=== PATIENT | female | born 1970 | race Caucasian/White ===

== ENCOUNTER → 2016-10-21 | Outpatient (CLI) | payer MEDICARE ==
[~2016-10-21] MED LIST: ABILIFY; BUSP10TA95 PO; BUSPIRONE; CEPH500C PO; DIAZ-345 PO; FLEXERIL; HYDR-3458 PO; HYDR-3820 PO; HYDR-757 PO; HYDR1TAB PO; HYOS0.1283 SL; MELO7.5T46 PO; METH4TAB PO; METH500T35 PO; MIRT30TA6 PO; NAPR-243 PO; NITR-65 PO; ONDA4TAB8 PO; OXYC-197 PO; SERT100T PO; SERT100T8 PO; TRM50T PO; VALIUM; ZOLOFT; [UNRECOGNIZED DRUG - OTHER]
--- NOTE | 2016-10-21 19:21 | Diagnostic Imaging Report ---
Examination: DEXA scan. Indication: Osteopenia. Technique: Bone mineral density estimated based on dual energy radiography over the lumbar spine and femoral necks, was performed. Findings: The lumbar spine T-score is -3. T-score over the right femoral neck is -2.4 and on the left side is -2.8. Impression: Osteoporosis. Dictated by: Dictated on workstation # [id number]
== END ==
LOC: RAD 09:02
PROVIDERS: ATTEND Nurse Practitioner Community Health
DX: M81.0 Age-related osteoporosis without current pathological fracture (principal); G89.29 Other chronic pain
CPT/HCPCS: 77080

== ENCOUNTER 2017-09-23 06:50 | Emergency (ER) | payer MEDICARE ==
[~2017-09-23] VITALS: Ht 162.6 cm; Wt 77.1 kg
--- OUTSIDE RECORDS SUMMARY | 2017-09-23 06:56 | XMS REPORT ---
Author Author KATHLEEN MOORE [facility] Address [address] [place] [address] Care Team Providers Care Rfid Technician Name Role Phone KATHLEEN MOORE Unavailable PROBLEMS Type Condition ICD9-CM Code [id number] Code Onset Dates Condition Status SNOMED Code Problem Chronic pain syndrome G89.4 Active 753699512 Problem Other chronic pain G89.29 Active 60563340 Problem Anxiety F41.9 Active 19542083 Problem Chronic pain G89.29 Active 95857779 Problem Arthritis of right hip M19.90 Active 00902889 ALLERGIES Unknown Allergies SOCIAL HISTORY No smoking Hx information available PLAN OF CARE VITAL SIGNS MEDICATIONS Unknown Medications RESULTS Name Result Date Reference Range [employer] 2016-07-23 PROCEDURES Procedure Date Ordered Related Diagnosis Body Site No Charge Jul 23, 2016 IMMUNIZATIONS No Known Immunizations
--- OUTSIDE RECORDS SUMMARY | 2017-09-23 06:56 | XMS REPORT ---
Author KATHLEEN Crandall Organization [employer] Address Unknown Phone Unavailable Care Team Providers Care Consulting Actuary Name Role Phone KATHLEEN MOORE CP Unavailable Allergies, Adverse Reactions, Alerts Substance Reaction Event Type Iodine hives Drug Allergy Codeine Phosphate nausea Drug Allergy Problems Problem Type Condition Code Onset Dates Condition Status Problem Arthritis of right hip M19.90 Active Problem Anxiety F41.9 Active Problem Chronic pain G89.29 Active Assessment Chronic pain G89.29 Active Assessment Arthritis of right hip M19.90 Active Assessment Anxiety F41.9 Active Medications Medication Code System Code Instructions Start Date End Date Status Dosage Zoloft [facility] [address]-16 100 MG Orally Once a day 2 tablet Bluebell [facility] [address]-81 10-325 MG Orally every 6 hrs. May 19, 2015 1 tablet as needed Procedures Procedure Coding System Code Date Office Visit, Est Pt., Level 3 CPT-4 99386 Jul 14, 2015 No Charge CPT-4 22332 Jul 14, 2015 [facility] VISIT ESTABLISHED PATIENT CPT-4 G0467 Jul 14, 2015 Vital Signs Date/Time: Jul 14, 2015 Temperature 97.6 F Weight 170 lbs Height 64 in BMI 29.18 Index Blood Pressure Diastolic 84 mmHg Blood Pressure Systolic 132 mmHg Cardiac Monitoring Heart Rate 80 bpm Results No Known Results Summary Purpose [employer] Submission
--- OUTSIDE RECORDS SUMMARY | 2017-09-23 06:57 | XMS REPORT ---
Author KATHLEEN Crandall Organization [employer] Address Unknown Phone Unavailable Care Team Providers Care Safety Supervisor Name Role Phone KATHLEEN MOORE CP Unavailable Allergies, Adverse Reactions, Alerts Substance Reaction Event Type Iodine hives Drug Allergy Codeine Phosphate nausea Drug Allergy Problems Problem Type Condition Code Onset Dates Condition Status Problem Arthritis of right hip M19.90 Active Problem Anxiety F41.9 Active Problem Chronic pain G89.29 Active Assessment Other chronic pain G89.29 Active Assessment Foot pain, left M79.672 Active Assessment Pain in left knee M25.562 Active Medications Medication Code System Code Instructions Start Date End Date Status Dosage BusPIRone HCl [facility] [address]-35 10 mg Orally Twice a day 1 tablet Remeron [facility] [address]-14 15 MG Orally Once a day 1 tablet before bedtime in the evening Wallace [facility] [address]-55 10-325 MG Orally every 6 hrs Sep 08, 2015 1 tablet as needed Zoloft [facility] [address]-05 100 MG Orally Once a day 2 tablet Procedures Procedure Coding System Code Date Office Visit, Est Pt., Level 3 CPT-4 50211 February 16, 2016 [facility] VISIT ESTABLISHED PATIENT CPT-4 G0467 February 16, 2016 Vital Signs Date/Time: February 16, 2016 Cardiac Monitoring Heart Rate 80 bpm Weight 165.0 lbs Height 64 in Blood Pressure Diastolic 72 mmHg Blood Pressure Systolic 104 mmHg Results No Known Results Summary Purpose [employer]Works Submission
--- OUTSIDE RECORDS SUMMARY | 2017-09-23 06:57 | XMS REPORT ---
Author Author KATHLEEN MOORE [facility] Address [address] [place] [address] Care Team Providers Care Institute Scientist Name Role Phone KATHLEEN MOORE Unavailable PROBLEMS Type Condition ICD9-CM Code [id number] Code Onset Dates Condition Status SNOMED Code Problem Chronic pain G89.29 Active 20490262 Problem Arthritis of right hip M19.90 Active 35025561 Problem Anxiety F41.9 Active 34490645 ALLERGIES Unknown Allergies SOCIAL HISTORY No smoking Hx information available PLAN OF CARE VITAL SIGNS MEDICATIONS Unknown Medications RESULTS No Results PROCEDURES No Known procedures IMMUNIZATIONS No Known Immunizations
--- OUTSIDE RECORDS SUMMARY | 2017-09-23 06:57 | XMS REPORT ---
Author KATHLEEN Crandall Organization [employer] Address Unknown Phone Unavailable Care Team Providers Care Wage Adjuster Name Role Phone KATHLEEN MOORE CP Unavailable Allergies No Known Allergies Problems Problem Type Condition Code Onset Dates Condition Status Problem Arthritis of right hip M19.90 Active Problem Anxiety F41.9 Active Problem Chronic pain G89.29 Active Medications Medication Code System Code Instructions Start Date End Date Status Dosage [facility] [address]-28 10-325 MG Orally every 6 hrs Sep 08, 2015 Jun 18, 2016 1 tablet as needed Results No Known Results Summary Purpose [employer]Works Submission
--- OUTSIDE RECORDS SUMMARY | 2017-09-23 06:57 | XMS REPORT ---
Author KATHLEEN Crandall Organization [employer] Address Unknown Phone Unavailable Care Team Providers Care Science Interpreter Name Role Phone KATHLEEN MOORE CP Unavailable Allergies No Known Allergies Problems Problem Type Condition Code Onset Dates Condition Status Problem Arthritis of right hip M19.90 Active Problem Anxiety F41.9 Active Problem Chronic pain G89.29 Active Medications Medication Code System Code Instructions Start Date End Date Status Dosage [facility] [address]-70 10-325 MG Orally every 6 hrs Sep 08, 2015 1 tablet as needed Results No Known Results Summary Purpose [employer]ClinicalWorks Submission
--- OUTSIDE RECORDS SUMMARY | 2017-09-23 06:57 | XMS REPORT ---
Author Author KATHLEEN MOORE [facility] Address [address] [place] [address] Care Team Providers Care Brine Process Operator Name Role Phone KATHLEEN MOORE Unavailable PROBLEMS Type Condition ICD9-CM Code [id number] Code Onset Dates Condition Status SNOMED Code Problem Chronic pain syndrome G89.4 Active 394746307 Problem Other chronic pain G89.29 Active 40915203 Problem Anxiety F41.9 Active 98124160 Problem Chronic pain G89.29 Active 69785224 Problem Arthritis of right hip M19.90 Active 26394559 ALLERGIES No Information SOCIAL HISTORY Never Assessed PLAN OF CARE VITAL SIGNS MEDICATIONS Unknown Medications RESULTS Name Result Date Reference Range Bone Density 2016-10-21 PROCEDURES No Known procedures IMMUNIZATIONS No Known Immunizations MEDICAL (GENERAL) HISTORY Type Description Date Medical History hernia (umbilical) Medical History chronic pain (back pain/DDD) Medical History fibromyalgia Medical History PTSD Surgical History hysterectomy Surgical History hernia repair x 2 Surgical History appendectomy Hospitalization History Hospitalization for surgery only Hospitalization History Child x 3 Hospitalization History Overdose, left calcaneal fracture--[facility]ia [facility] 01/01/16
--- OUTSIDE RECORDS SUMMARY | 2017-09-23 06:57 | XMS REPORT ---
Author Author KATHLEEN MOORE [facility] Address [address] [place] [address] Care Team Providers Care Creative Art Director Name Role Phone KATHLEEN MOORE Unavailable PROBLEMS Type Condition ICD9-CM Code [id number] Code Onset Dates Condition Status SNOMED Code Problem Chronic pain syndrome G89.4 Active 943866448 Problem Other chronic pain G89.29 Active 55824321 Problem Anxiety F41.9 Active 08872865 Problem Chronic pain G89.29 Active 80773639 Problem Arthritis of right hip M19.90 Active 73803144 ALLERGIES No Information SOCIAL HISTORY Never Assessed PLAN OF CARE VITAL SIGNS MEDICATIONS Medication Instructions Dosage Frequency Start Date End Date Duration Status [place] 10-325 MG Orally every 6 hrs 1 tablet as needed 6h Aug, 28 days Active RESULTS No Results PROCEDURES No Known procedures IMMUNIZATIONS No Known Immunizations MEDICAL (GENERAL) HISTORY Type Description Date Medical History hernia (umbilical) Medical History chronic pain (back pain/DDD) Medical History fibromyalgia Medical History PTSD Surgical History hysterectomy Surgical History hernia repair x 2 Surgical History appendectomy Hospitalization History Hospitalization for surgery only Hospitalization History Child x 3 Hospitalization History Overdose, left calcaneal fracture--[facility]ia [facility] 01/01/16
--- OUTSIDE RECORDS SUMMARY | 2017-09-23 06:57 | XMS REPORT ---
Author Author KATHLEEN MOORE Organization [facility] Address [address] [place] [address] Care Team Providers Care Social Welfare Research Worker Name Role Phone KATHLEEN MOORE Unavailable PROBLEMS Type Condition ICD9-CM Code [id number] Code Onset Dates Condition Status SNOMED Code Problem Chronic pain syndrome G89.4 Active 654747269 Problem Other chronic pain G89.29 Active 17118378 Problem Anxiety F41.9 Active 15479862 Problem Chronic pain G89.29 Active 27440919 Problem Arthritis of right hip M19.90 Active 31439330 ALLERGIES No Information SOCIAL HISTORY Never Assessed PLAN OF CARE VITAL SIGNS MEDICATIONS Medication Instructions Dosage Frequency Start Date End Date Duration Status [place] 10-325 MG Orally every 6 hrs 1 tablet as needed 6h 11 Nov, 2016 28 days Active Valium 5 MG Orally Twice a day 1 tablet as needed 12h 16 Sep, 2016 28 days Active RESULTS No Results PROCEDURES [...] 3 Hospitalization History Overdose, left calcaneal fracture--[facility]ia [facility] 01/01/16
--- OUTSIDE RECORDS SUMMARY | 2017-09-23 06:57 | XMS REPORT ---
Author KATHLEEN Crandall Organization [employer] Address Unknown Phone Unavailable Care Team Providers Care Theatre Director Name Role Phone KATHLEEN MOORE CP Unavailable Allergies No Known Allergies Problems Problem Type Condition Code Onset Dates Condition Status Problem Arthritis of right hip M19.90 Active Problem Anxiety F41.9 Active Problem Chronic pain G89.29 Active Medications No Known Medications Results No Known Results Summary Purpose [employer] Submission
--- OUTSIDE RECORDS SUMMARY | 2017-09-23 06:57 | XMS REPORT ---
Author KATHLEEN Crandall Organization [employer] Address Unknown Phone Unavailable Care Team Providers Care Secretary Of Police Name Role Phone KATHLEEN MOORE CP Unavailable Allergies No Known Allergies Problems Problem Type Condition Code Onset Dates Condition Status Problem Anxiety F41.9 Active Assessment Arthralgia of right hip M25.551 Active Problem Arthritis of right hip M19.90 Active Medications Medication Code System Code Instructions Start Date End Date Status Dosage [facility] [address]-29 10-325 MG Orally every 6 hrs. MUST LAST 30 DAYS May 19, 2015 1 tablet as needed Results No Known Results Summary Purpose [employer]ClinicalWorks Submission
--- OUTSIDE RECORDS SUMMARY | 2017-09-23 06:57 | XMS REPORT ---
Author Author KATHLEEN MOORE [facility] Address [address] [place] [address] Care Team Providers Care Manager Quality Improvement Name Role Phone KATHLEEN MOORE Unavailable PROBLEMS Type Condition ICD9-CM Code BPT55-VT Code Onset Dates Condition Status SNOMED Code Problem Chronic pain syndrome G89.4 Active 184775337 Problem Other chronic pain G89.29 Active 92211359 Problem Anxiety F41.9 Active 18801761 Problem Chronic pain G89.29 Active 98482076 Problem Arthritis of right hip M19.90 Active 68871231 ALLERGIES Substance Reaction Event Type Date Status Iodine hives Drug Allergy Sep, Active Codeine Phosphate nausea Drug Allergy Sep, Active SOCIAL HISTORY Never Assessed PLAN OF CARE VITAL SIGNS Height 64 in 2016-10-07 Weight 170.1 lbs 2016-10-07 Temperature 98.0 degrees Fahrenheit 2016-10-07 Heart Rate 76 bpm 2016-10-07 Respiratory Rate 20 2016-10-07 BMI 29.19 kg/m2 2016-10-07 Blood pressure systolic 116 mmHg 2016-10-07 Blood pressure diastolic 68 mmHg 2016-10-07 MEDICATIONS Medication Instructions Dosage Frequency Start Date End Date Duration Status Zoloft 100 MG Orally Once a day 2 tablet 24h Active [place] 10-325 MG Orally every 6 hrs 1 tablet as needed 6h Sep, Active Valium 5 mg Orally Twice a day 1 tablet as needed 12h Sep, Active BusPIRone HCl 10 mg Orally Twice a day 1 tablet 12h Active Remeron 15 MG Orally Once a day 1 tablet before bedtime in the evening 24h Active RESULTS Name Result Date Reference Range Xray : Foot, Right 3 views (IN HOUSE) 2016-10-07 PROCEDURES Procedure Date Ordered Result Body Site [facility] VISIT ESTABLISHED PATIENT October 07, 2016 X-RAY EXAM OF FOOT October 07, 2016 IMMUNIZATIONS No Known Immunizations MEDICAL (GENERAL) HISTORY Type Description Date Medical History hernia (umbilical) Medical History chronic pain (back pain/DDD) Medical History fibromyalgia Medical History PTSD Surgical History hysterectomy Surgical History hernia repair x 2 Surgical History appendectomy Hospitalization History Hospitalization for surgery only Hospitalization History Child x 3 Hospitalization History Overdose, left calcaneal fracture--[facility]ia [facility] 01/01/16
--- OUTSIDE RECORDS SUMMARY | 2017-09-23 06:57 | XMS REPORT ---
Author Author KATHLEEN MOORE [facility] Address [address] [place] [address] Care Team Providers Care Cemetery Vault Installer Name Role Phone KATHLEEN MOORE Unavailable PROBLEMS Type Condition ICD9-CM Code ZPU62-ND Code Onset Dates Condition Status SNOMED Code Problem Chronic pain syndrome G89.4 Active 160074658 Problem Other chronic pain G89.29 Active 10353909 Problem Anxiety F41.9 Active 54833643 Problem Chronic pain G89.29 Active 33826366 Problem Arthritis of right hip M19.90 Active 82427516 ALLERGIES No Information SOCIAL HISTORY Never Assessed [...] 3 Hospitalization History Overdose, left calcaneal fracture--[facility]ia [facility] 01/01/16
--- OUTSIDE RECORDS SUMMARY | 2017-09-23 06:57 | XMS REPORT ---
Author KATHLEEN Crandall Organization [employer] Address Unknown Phone Unavailable Care Team Providers Care Dispatch Officer Name Role Phone KATHLEEN MOORE CP Unavailable Allergies No Known Allergies Problems Problem Type Condition Code Onset Dates Condition Status Problem Arthritis of right hip M19.90 Active Problem Anxiety F41.9 Active Problem Chronic pain G89.29 Active Medications No Known Medications Results No Known Results Summary Purpose [employer] Submission
--- OUTSIDE RECORDS SUMMARY | 2017-09-23 06:57 | XMS REPORT ---
Author KATHLEEN Crandall Organization [employer] Address Unknown Phone Unavailable Care Team Providers Care Side Gluer Name Role Phone KATHLEEN MOORE CP Unavailable Allergies No Known Allergies Problems Problem Type Condition Code Onset Dates Condition Status Problem Anxiety F41.9 Active Problem Arthritis of right hip M19.90 Active Medications No Known Medications Results No Known Results Summary Purpose [employer]ClinicalWorks Submission
--- OUTSIDE RECORDS SUMMARY | 2017-09-23 06:57 | XMS REPORT ---
Author Author KATHLEEN MOORE [facility] Address [address] [place] [address] Care Team Providers Care Wreath And Garland Maker Hand Name Role Phone KATHLEEN MOORE Unavailable PROBLEMS Type Condition ICD9-CM Code XIF25-QI Code Onset Dates Condition Status SNOMED Code Problem Chronic pain G89.29 Active 40484068 Problem Arthritis of right hip M19.90 Active 22177960 Problem Anxiety F41.9 Active 34984119 ALLERGIES Unknown Allergies SOCIAL HISTORY No smoking Hx information available PLAN OF CARE VITAL SIGNS MEDICATIONS Medication Instructions Dosage Frequency Start Date End Date Duration Status [place] 10-325 MG Orally every 6 hrs 1 tablet as needed 6h Aug, Active RESULTS No Results PROCEDURES No Known procedures IMMUNIZATIONS No Known Immunizations
--- OUTSIDE RECORDS SUMMARY | 2017-09-23 06:57 | XMS REPORT ---
Author KATHLEEN Crandall Organization [employer] Address Unknown Phone Unavailable Care Team Providers Care Financial Professional Name Role Phone KATHLEEN MOORE CP Unavailable Allergies No Known Allergies Problems Problem Type Condition Code Onset Dates Condition Status Problem Arthritis of right hip M19.90 Active Problem Anxiety F41.9 Active Problem Chronic pain G89.29 Active Medications Medication Code System Code Instructions Start Date End Date Status Dosage [facility] [address]-34 10-325 MG Orally every 6 hrs Sep 08, 2015 1 tablet as needed Results No Known Results Summary Purpose eClinicalWorks Submission
--- OUTSIDE RECORDS SUMMARY | 2017-09-23 06:57 | XMS REPORT ---
Author Author KATHLEEN MOORE [facility] Address [address] [place] [address] Care Team Providers Care Etl Programmer Name Role Phone KATHLEEN MOORE Unavailable PROBLEMS Type Condition ICD9-CM Code [id number] Code Onset Dates Condition Status SNOMED Code Problem Chronic pain syndrome G89.4 Active 785141682 Problem Other chronic pain G89.29 Active 91966552 Problem Anxiety F41.9 Active 50902559 Problem Chronic pain G89.29 Active 00752204 Problem Arthritis of right hip M19.90 Active 57325195 ALLERGIES Unknown Allergies SOCIAL HISTORY No smoking Hx information available PLAN OF CARE VITAL SIGNS MEDICATIONS Medication Instructions Dosage Frequency Start Date End Date Duration Status Valium 5 mg Orally Twice a day 1 tablet as needed 12h 25 May, 2016 Active RESULTS No Results PROCEDURES No Known procedures IMMUNIZATIONS No Known Immunizations
--- OUTSIDE RECORDS SUMMARY | 2017-09-23 06:57 | XMS REPORT ---
Author Author KATHLEEN MOORE [facility] Address [address] [place] [address] Care Team Providers Care Medical Language Specialist Name Role Phone KATHLEEN MOORE Unavailable PROBLEMS Type Condition ICD9-CM Code HZX48-MO Code Onset Dates Condition Status SNOMED Code Problem Chronic pain syndrome G89.4 Active 016995330 Problem Other chronic pain G89.29 Active 13921779 Problem Anxiety F41.9 Active 50216782 Problem Chronic pain G89.29 Active 40931679 Problem Arthritis of right hip M19.90 Active 18761128 ALLERGIES Unknown Allergies SOCIAL HISTORY No smoking Hx information available PLAN OF CARE VITAL SIGNS MEDICATIONS Medication Instructions Dosage Frequency Start Date End Date Duration Status Chlor[place] 10-325 MG Orally every 6 hrs 1 tablet as needed 6h Jul, 28 days Active RESULTS No Results PROCEDURES No Known procedures IMMUNIZATIONS No Known Immunizations
--- OUTSIDE RECORDS SUMMARY | 2017-09-23 06:57 | XMS REPORT ---
Author KATHLEEN Crandall Organization [employer] Address Unknown Phone Unavailable Care Team Providers Care Guitar Teacher Name Role Phone KATHLEEN MOORE CP Unavailable Allergies No Known Allergies Problems Problem Type Condition Code Onset Dates Condition Status Problem Arthritis of right hip M19.90 Active Problem Anxiety F41.9 Active Problem Chronic pain G89.29 Active Medications No Known Medications Results No Known Results Summary Purpose [employer] Submission
--- OUTSIDE RECORDS SUMMARY | 2017-09-23 06:57 | XMS REPORT ---
Author KATHLEEN Crandall Organization [employer] Address Unknown Phone Unavailable Care Team Providers Care Concrete Grinder Operator Name Role Phone KATHLEEN MOORE CP Unavailable Allergies, Adverse Reactions, Alerts Substance Reaction Event Type Iodine hives Drug Allergy Problems Problem Type Condition Code Onset Dates Condition Status Assessment Stress headaches F45.41 Active Problem Anxiety state, unspecified 300.00 Active Problem Urinary tract infection, site not specified 599.0 Active Problem Candidiasis of vulva and vagina 112.1 Active Assessment Low back pain M54.5 Active Assessment Sciatica, unspecified side M54.30 Active Problem Acute upper respiratory infections of unspecified site 465.9 Active Assessment Arthralgia of right hip M25.551 Active Medications Medication Code System Code Instructions Start Date End Date Status Dosage [place] [facility] [address]-34 10-325 MG Orally every 6 hrs May 19, 2015 1 tablet as needed Zoloft [facility] [address]-17 100 MG Orally Once a day 2 tablet Zofran [facility] [address]-00 4 MG Orally Once a day 2 tablets Procedures Procedure Coding System Code Date Office Visit, Est Pt., Level 3 CPT-4 89944 May 19, 2015 [facility] VISIT ESTABLISHED PATIENT CPT-4 G0467 May 19, 2015 Vital Signs Date/Time: May 19, 2015 Temperature 97.5 F Weight 158.3 lbs Height 64 in BMI 27.17 Index Blood Pressure Diastolic 68 mmHg Blood Pressure Systolic 100 mmHg Cardiac Monitoring Heart Rate 84 bpm Results No Known Results Summary Purpose eClinicalWorks Submission
--- OUTSIDE RECORDS SUMMARY | 2017-09-23 06:58 | XMS REPORT | Continuity of Care Document ---
Author Author [facility] Address Unknown Phone Unavailable Allergies Active Description Code Type Severity Reaction Onset Reported/Identified Relationship to Patient Clinical Status Yes codeine [id number] Drug Allergy Unknown N/A 10/18/2005 Yes codeine Drug Allergy N/A N/A 02/13/2010 Yes Levaquin Drug Allergy N/A N/A 02/13/2010 Yes codeine Drug Allergy 02/13/2010 Yes Levaquin Drug Allergy 02/13/2010 Yes amoxicillin Drug Allergy N/A N/A 05/24/2011 Yes amoxicillin Drug Allergy 05/24/2011 Yes amoxicillin [id number] Drug Allergy Unknown N/A 01/01/2016 Medications There is no data. Problems Date Dx Coded Attending Type Code Diagnosis Diagnosed By 02/13/2010 MARIELY LIN, MARIANA 724.5 BACKACHE 02/13/2010 MARIELY LIN, MARIANA 724.5 BACKACHE 02/13/2010 724.5 BACKACHE 02/13/2010 724.5 BACKACHE 02/13/2010 MARIELY LIN, MARIANA 724.5 BACKACHE 02/13/2010 MARIELY LIN, MARIANA 724.5 BACKACHE 02/13/2010 JENNIFER MEDRANO DO 724.5 BACKACHE 02/13/2010 MARIELY LIN, MARIANA 724.5 BACKACHE 02/13/2010 MARIELY LIN, MARIANA 724.5 BACKACHE 04/28/2010 MARIANA SCHUSTER MD 465.9 Upper Respiratory Infection 04/28/2010 MARIELY LIN, MARIANA 789.00 Abdominal Pain Unspecified Site 04/28/2010 MARIELY LIN, MARIANA 465.9 Upper Respiratory Infection 04/28/2010 MARIELY LIN, MARIANA 789.00 Abdominal Pain Unspecified Site 04/28/2010 465.9 Upper Respiratory Infection 04/28/2010 789.00 Abdominal Pain Unspecified Site 04/28/2010 465.9 Upper Respiratory Infection 04/28/2010 789.00 Abdominal Pain Unspecified Site 04/28/2010 MARIANA SCHUSTER MD 465.9 Upper Respiratory Infection 04/28/2010 MARIANA SCHUSTER MD 789.00 Abdominal Pain Unspecified Site 04/28/2010 MARIANA SCHUSTER MD 465.9 Upper Respiratory Infection 04/28/2010 MARIANA SCHUSTER MD 789.00 Abdominal Pain Unspecified Site 04/28/2010 JENNIFER MEDRANO DO 465.9 Upper Respiratory Infection 04/28/2010 JENNIFER MEDRANO DO 789.00 Abdominal Pain Unspecified Site 04/28/2010 MARIANA SCHUSTER MD 465.9 Upper Respiratory Infection 04/28/2010 MARIANA SCHUSTER MD 789.00 Abdominal Pain Unspecified Site 04/28/2010 MARIANA SCHUSTER MD 465.9 Upper Respiratory Infection 04/28/2010 MARIANA SCHUSTER MD 789.00 Abdominal Pain Unspecified Site 06/19/2010 MARIANA SCHUSTER MD 627.2 SYMPTOMATIC MENOPAUSAL OR FEMALE CLIMACTERIC STATES 06/19/2010 MARIANA SCHUSTER MD 627.2 SYMPTOMATIC MENOPAUSAL OR FEMALE CLIMACTERIC STATES 06/19/2010 627.2 SYMPTOMATIC MENOPAUSAL OR FEMALE CLIMACTERIC STATES 06/19/2010 627.2 SYMPTOMATIC MENOPAUSAL OR FEMALE CLIMACTERIC STATES 06/19/2010 AMRIANA SCHUSTER MD 627.2 SYMPTOMATIC MENOPAUSAL OR FEMALE CLIMACTERIC STATES 06/19/2010 MARIANA SCHUSTER MD 627.2 SYMPTOMATIC MENOPAUSAL OR FEMALE CLIMACTERIC STATES 06/19/2010 JENNIFER MEDRANO DO 627.2 SYMPTOMATIC MENOPAUSAL OR FEMALE CLIMACTERIC STATES 06/19/2010 MARIANA SCHUSTER MD 627.2 SYMPTOMATIC MENOPAUSAL OR FEMALE CLIMACTERIC STATES 06/19/2010 MARIANA SCHUSTER MD 627.2 SYMPTOMATIC MENOPAUSAL OR FEMALE CLIMACTERIC STATES 04/01/2011 MARIANA SCHUSTER MD 522.5 Periapical Abscess Without Sinus 04/01/2011 MARIANA SCHUSTER MD 522.5 Periapical Abscess Without Sinus 04/01/2011 522.5 Periapical Abscess Without Sinus 04/01/2011 522.5 Periapical Abscess Without Sinus 04/01/2011 MARIANA SCHUSTER MD 522.5 Periapical Abscess Without Sinus 04/01/2011 MARIANA SCHUSTER MD 522.5 Periapical Abscess Without Sinus 04/01/2011 JENNIFER MEDRANO DO 522.5 Periapical Abscess Without Sinus 04/01/2011 MARIANA SCHUSTER MD 522.5 Periapical Abscess Without Sinus 04/01/2011 MARIANA SCHUSTER MD 522.5 Periapical Abscess Without Sinus 06/22/2012 MARIANA SCHUSTER MD 465.9 ACUTE UPPER RESPIRATORY INFECTIONS OF UNSPECIFIED SITE 06/22/2012 MARIANA SCHUSTER MD 465.9 ACUTE UPPER RESPIRATORY INFECTIONS OF UNSPECIFIED SITE 06/22/2012 465.9 ACUTE UPPER RESPIRATORY INFECTIONS OF UNSPECIFIED SITE 06/22/2012 465.9 ACUTE UPPER RESPIRATORY INFECTIONS OF UNSPECIFIED SITE 06/22/2012 MARIANA SCHUSTER MD 465.9 ACUTE UPPER RESPIRATORY INFECTIONS OF UNSPECIFIED SITE 06/22/2012 MARIANA SCHUSTER MD 465.9 ACUTE UPPER RESPIRATORY INFECTIONS OF UNSPECIFIED SITE 06/22/2012 JENNIFER MEDRANO DO 465.9 ACUTE UPPER RESPIRATORY INFECTIONS OF UNSPECIFIED SITE 06/22/2012 MARIANA SCHUSTER MD 465.9 ACUTE UPPER RESPIRATORY INFECTIONS OF UNSPECIFIED SITE 06/22/2012 MARIANA SCHUSTER MD 465.9 ACUTE UPPER RESPIRATORY INFECTIONS OF UNSPECIFIED SITE 01/22/2013 ELANIE CASAS MD Ot 825.25 FX METATARSAL-CLOSED 01/22/2013 ELAINE CASAS MD Ot 959.7 LOWER LEG INJURY NOS 01/22/2013 ELAINE CASAS MD Ot E000.8 OTHER EXTERNAL CAUSE STATUS 01/22/2013 ELAINE CASAS MD Ot E849.0 ACCIDENT IN HOME 01/22/2013 ELAINE CASAS MD Ot E880.9 FALL ON STAIR/STEP NEC 06/11/2013 MARIANA SCHUSTER MD 300.00 ANXIETY STATE UNSPECIFIED 06/11/2013 MARIANA SCHUSTER MD 599.0 URINARY TRACT INFECTION SITE NOT SPECIFIED 06/11/2013 JENNIFER MEDRANO DO 300.00 ANXIETY STATE UNSPECIFIED 06/11/2013 JENNIFER MEDRANO DO 599.0 URINARY TRACT INFECTION SITE NOT SPECIFIED 06/11/2013 MARIANA SCHUSTER MD 300.00 ANXIETY STATE UNSPECIFIED 06/11/2013 MARIANA SCHUSTER MD 599.0 URINARY TRACT INFECTION SITE NOT SPECIFIED 06/11/2013 MARIANA SCHUSTER MD 300.00 ANXIETY STATE UNSPECIFIED 06/11/2013 MARIANA SCHUSTER MD 599.0 URINARY TRACT INFECTION SITE NOT SPECIFIED 10/01/2013 MARIANA SCHUSTER MD 112.1 CANDIDIASIS OF VULVA AND VAGINA 10/01/2013 MARIANA SCHUSTER MD 112.1 CANDIDIASIS OF VULVA AND VAGINA 10/13/2013 LEAINE CASAS MD Ot 883.0 OPEN WOUND OF FINGER 10/13/2013 ELAINE CASAS MD Ot E000.8 OTHER EXTERNAL CAUSE STATUS 10/13/2013 ELAINE CASAS MD Ot E849.0 ACCIDENT IN HOME 10/13/2013 ELAINE CASAS MD Ot E920.8 ACC-CUTTING INSTRUM NEC 10/13/2013 ELAINE CASAS MD Ot V06.1 [id number], COMBINED [ 01/01/2016 Ot 627.2 SYMPT MENOPAUSE OR FEMALE CLIMACTERIC ST 01/01/2016 Ot V07.4 HORMONE REPLACEMENT THERAPY (POSTMENOPAU 01/01/2016 Ot V16.3 FAMILY HX- BREAST MALIG 01/01/2016 Ot V76.12 OTH SCREEN MAMMO-MALIGN NEOPLASM OF TAYLOR 01/01/2016 Ot 625.9 FEM GENITAL SYMPTOMS NOS 01/01/2016 MARIANA SCHUSTER MD Ot V76.12 OTH SCREEN MAMMO-MALIGN NEOPLASM OF T[place]LOR 01/02/2016 KISHA WOOD MD Ot F17.210 NICOTINE DEPENDENCE, CIGARETTES, UNCOMPL 01/02/2016 KISHA WOOD MD Ot R41.82 ALTERED MENTAL STATUS, UNSPECIFIED 01/02/2016 KISHA WOOD MD Ot R50.9 FEVER, UNSPECIFIED 01/02/2016 KISHA WOOD MD Ot S92.062A DISPLACED INTRAARTICULAR FRACTURE OF LEF 01/02/2016 KISHA WOOD MD Ot T40.601A POISONING BY UNSP NARCOTICS, ACCIDENTAL, 01/02/2016 KISHA WOOD MD Ot W07.XXXA FALL FROM CHAIR, INITIAL ENCOUNTER 01/02/2016 KISHA WOOD MD Ot Y92.[address] IN SINGLE-FAMILY (PRIVATE) JORGE 01/02/2016 KISHA WOOD MD Ot Y99.8 OTHER EXTERNAL CAUSE STATUS 01/05/2016 Ot 627.2 SYMPT MENOPAUSE OR FEMALE CLIMACTERIC ST 01/05/2016 Ot V07.4 HORMONE REPLACEMENT THERAPY (POSTMENOPAU 01/05/2016 Ot V16.3 FAMILY HX- BREAST MALIG 01/05/2016 Ot V76.12 OTH SCREEN MAMMO-MALIGN NEOPLASM OF TAYLOR 01/05/2016 Ot 625.9 FEM GENITAL SYMPTOMS NOS 01/05/2016 MARIANA SCHUSTER MD Ot V76.12 OTH SCREEN MAMMO-MALIGN NEOPLASM OF T[place] 01/05/2016 ABILIO LIN, JAMIE Bentley Ot F17.210 NICOTINE DEPENDENCE, CIGARETTES, UNCOMPL 01/05/2016 ABILIO LIN, JAMIE Bentley Ot S20.222D CONTUSION OF LEFT BACK WALL OF THORAX, S 01/05/2016 ABILIO LIN, JAMIE Bentley Ot S92.062D DISPLACED INTARTIC FX L CALCANEUS, SUBS 02/10/2016 RIKY HELMS APRN Ot F17.210 NICOTINE DEPENDENCE, CIGARETTES, UNCOMPL 02/10/2016 RIKY HELMS APRN Ot M23.92 UNSPECIFIED INTERNAL DERANGEMENT OF LEFT 02/10/2016 RIKY HELMS HOUSEKEEPER Ot M25.462 EFFUSION, LEFT KNEE 02/10/2016 RIKY HELMS HOUSEKEEPER Ot S89.92XA UNSPECIFIED INJURY OF LEFT LOWER LEG, IN 02/10/2016 RIKY HELMS HOUSEKEEPER Ot W17.89XA OTHER FALL FROM ONE LEVEL TO ANOTHER, IN 02/10/2016 RIKY HELMS APRN Ot Y92.[address] IN SINGLE-FAMILY (PRIVATE) JORGE 02/10/2016 RIKY HELMS APRN Ot Y99.8 OTHER EXTERNAL CAUSE STATUS 02/10/2016 Ot 627.2 SYMPT MENOPAUSE OR FEMALE CLIMACTERIC ST 02/10/2016 Ot V07.4 HORMONE REPLACEMENT THERAPY (POSTMENOPAU 02/10/2016 Ot V16.3 FAMILY HX- BREAST MALIG 02/10/2016 Ot V76.12 OTH SCREEN MAMMO-MALIGN NEOPLASM OF TAYLOR 02/10/2016 Ot 625.9 FEM GENITAL SYMPTOMS NOS 02/10/2016 MARIELY LIN, MARIANA Self Ot V76.12 OTH SCREEN MAMMO-MALIGN NEOPLASM OF [place] 02/11/2016 RIKY HELMS APRN Ot F17.210 NICOTINE DEPENDENCE, CIGARETTES, UNCOMPL 02/11/2016 RIKY HELMS APRN Ot M23.92 UNSPECIFIED INTERNAL DERANGEMENT OF LEFT 02/11/2016 RIKY HELMS APRN Ot M25.462 EFFUSION, LEFT KNEE 02/11/2016 RIKY HELMS APRN Ot S89.92XA UNSPECIFIED INJURY OF LEFT LOWER LEG, IN 02/11/2016 RIKY HELMS APRN Ot W17.89XA OTHER FALL FROM ONE LEVEL TO ANOTHER, IN 02/11/2016 RIKY HELMS APRN Ot Y92.[address] IN SINGLE-FAMILY (PRIVATE) [facility] 02/11/2016 RIKY HELMS APRN Ot Y99.8 OTHER EXTERNAL CAUSE STATUS 03/05/2016 RIKY HELMS APRN Ot F17.210 NICOTINE DEPENDENCE, CIGARETTES, UNCOMPL 03/05/2016 RIKY HELMS APRN Ot M23.92 UNSPECIFIED INTERNAL DERANGEMENT OF LEFT 03/05/2016 RIKY HELMS APRN Ot M25.462 EFFUSION, LEFT KNEE 03/05/2016 RIKY HELMS APRN Ot S89.92XA UNSPECIFIED INJURY OF LEFT LOWER LEG, IN 03/05/2016 RIKY HELMS APRN Ot W17.89XA OTHER FALL FROM ONE LEVEL TO ANOTHER, IN 03/05/2016 RIKY HELMS APRN Ot Y92.[address] IN SINGLE-FAMILY (PRIVATE) [facility] 03/05/2016 RIKY HELMS APRN Ot Y99.8 OTHER EXTERNAL CAUSE STATUS 07/24/2016 ANDREA DO GILMA K Ot F17.210 NICOTINE DEPENDENCE, CIGARETTES, UNCOMPL 07/24/2016 ANDREA CARY LEONARDA K Ot K59.00 CONSTIPATION, UNSPECIFIED 07/24/2016 ANDREA DO GILMA K Ot N39.0 URINARY TRACT INFECTION, SITE NOT SPECIF 07/24/2016 ANDREA DO GILMA K Ot R10.84 GENERALIZED ABDOMINAL PAIN 07/24/2016 ANDREA DO GILMA K Ot R14.0 ABDOMINAL DISTENSION (GASEOUS) 07/24/2016 ANDREA DO GILMA K Ot Z79.899 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 MEDICAL TECHNICIAN ASSISTANT (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) DRUG THERAPY 07/28/2016 ANDREA DO GILMA K Ot F17.210 NICOTINE DEPENDENCE, CIGARETTES, UNCOMPL 07/28/2016 CARY MENDEZ DOA K Ot K59.00 CONSTIPATION, UNSPECIFIED 07/28/2016 ANDREA DO, GILMA K Ot N39.0 URINARY TRACT INFECTION, SITE NOT SPECIF 07/28/2016 ANDREA DO, GILMA K Ot R10.84 GENERALIZED ABDOMINAL PAIN 07/28/2016 ANDREA DO, GILMA K Ot R14.0 ABDOMINAL DISTENSION (GASEOUS) 07/28/2016 ANDREA DO, GILMA K Ot Z79.899 OTHER CUSTODIAL (CURRENT) DRUG THERAPY 07/30/2016 ANDREA DO, GILMA K Ot F17.210 NICOTINE DEPENDENCE, CIGARETTES, UNCOMPL 07/30/2016 ANDREA DO, GILMA K Ot K59.00 CONSTIPATION, UNSPECIFIED 07/30/2016 ANDREA DO, GILMA K Ot N39.0 URINARY TRACT INFECTION, SITE NOT SPECIF 07/30/2016 ANDREA DO, GILMA K Ot R10.84 GENERALIZED ABDOMINAL PAIN 07/30/2016 ANDREA DO, GILMA K Ot R14.0 ABDOMINAL DISTENSION (GASEOUS) 07/30/2016 ANDREA DO, GILMA K Ot Z79.899 OTHER CUSTODIAL (CURRENT) DRUG THERAPY 10/21/2016 Ot 625.9 FEM GENITAL SYMPTOMS NOS 10/21/2016 MARIANA SCHUSTER MD Ot V76.12 OTH SCREEN MAMMO-MALIGN NEOPLASM OF TAYLOR 10/21/2016 KATHLEEN MOOREP Ot G89.29 OTHER CHRONIC PAIN 10/21/2016 KATHLEEN MOORE BIOPSYCHOLOGIST Ot G89.29 OTHER CHRONIC PAIN 10/22/2016 KATHLEEN MOORE BIOPSYCHOLOGIST Ot G89.29 OTHER CHRONIC PAIN 10/22/2016 KATHLEEN MOORE BIOPSYCHOLOGIST Ot G89.29 OTHER CHRONIC PAIN 10/22/2016 KATHLEEN MOORE BIOPSYCHOLOGIST Ot M81.0 AGE-RELATED OSTEOPOROSIS W/O CURRENT PAT 11/16/2016 KATHLEEN MOORE BIOPSYCHOLOGIST Ot G89.29 OTHER CHRONIC PAIN 11/16/2016 KATHLEEN MOORE BIOPSYCHOLOGIST Ot M81.0 AGE-RELATED OSTEOPOROSIS W/O CURRENT PAT 09/23/2017 MARIANA SCHUSTER MD Ot V76.12 OTH SCREEN MAMMO-MALIGN NEOPLASM OF TAYLOR 09/23/2017 KATHLEEN MOOREP Ot G89.29 OTHER CHRONIC PAIN 09/23/2017 KATHLEEN MOOREP Ot M81.0 AGE-RELATED OSTEOPOROSIS W/O CURRENT PAT Procedures Code [place] [address] THERAPUTIC INJ SQ/IM 06/22/2012 J1000 DEPO-ESTRADIOL INJ, UP TO 5 MG 06/22/2012 53403 URINE DRUG SCREEN (IN-HOUSE ) 06/22/2012 J1000 Depo-Estradiol 5 mg/mL Oil 06/23/2012 26975 THERAPUTIC INJ SQ/IM 09/11/2012 99404 MAMMOGRAM, SCREENING 09/13/2012 J1000 DEPO-ESTRADIOL INJ, UP TO 5 MG 09/13/2012 56475 URINE DRUG SCREEN (IN-HOUSE ) 01/09/2013 35110 UA W/ CULTURE IF INDICATED 06/11/2013 49119 URINE DRUG SCREEN (IN-HOUSE ) 06/11/2013 J1000 DEPO-ESTRADIOL INJ, UP TO 5 MG 06/11/2013 98554 THERAPUTIC INJ SQ/IM 06/11/2013 65959 URINE DRUG SCREEN (IN-HOUSE ) 10/01/2013 77668 UA LONG DIP 10/01/2013 66040 [employer] 01/02/2014 Results Test Result Range Complete blood count (CBC) with automated white blood cell (WBC) differential - 07/24/16 01:56 Blood leukocytes automated count (number/volume) 11.0 10*3/uL 4.3-11.0 Blood erythrocytes automated count (number/volume) 4.51 10*6/uL 4.35-5.85 Venous blood hemoglobin measurement (mass/volume) 14.0 g/dL 11.5-16.0 Blood hematocrit (volume fraction) 42 % 35-52 Automated erythrocyte mean corpuscular volume 92 [foz_us] 80-99 Automated erythrocyte mean corpuscular hemoglobin (mass per erythrocyte) 31 pg 25-34 Automated erythrocyte mean corpuscular hemoglobin concentration measurement ( mass/volume) 34 g/dL 32-36 Automated erythrocyte distribution width ratio 14.8 % 10.0-14.5 Automated blood platelet count (count/volume) 251 10*3/uL 130-400 Automated blood platelet mean volume measurement 10.5 [foz_us] 7.4-10.4 Automated blood neutrophils/100 leukocytes 53 % 42-75 Automated blood lymphocytes/100 leukocytes 35 % 12-44 Blood monocytes/100 leukocytes 8 % 0-12 Automated blood eosinophils/100 leukocytes 4 % 0-10 Automated blood basophils/100 leukocytes 1 % 0-10 Blood neutrophils automated count (number/volume) 5.8 10*3 1.8-7.8 Blood lymphocytes automated count (number/volume) 3.9 10*3 1.0-4.0 Blood monocytes automated count (number/volume) 0.8 10*3 0.0-1.0 Automated eosinophil count 0.4 10*3/uL 0.0-0.3 Automated blood basophil count (count/volume) 0.1 10*3/uL 0.0-0.1 Comprehensive metabolic panel - 07/24/16 01:56 Serum or plasma sodium measurement (moles/volume) 135 mmol/L 135-145 Serum or plasma potassium measurement (moles/volume) 3.9 mmol/L 3.6-5.0 Serum or plasma chloride measurement (moles/volume) 111 mmol/L 98-107 Carbon dioxide 16 mmol/L 21-32 Serum or plasma anion gap determination (moles/volume) 8 mmol/L 5-14 Serum or plasma urea nitrogen measurement (mass/volume) 21 mg/dL 7-18 Serum or plasma creatinine measurement (mass/volume) 0.91 mg/dL 0.60-1.30 Serum or plasma urea nitrogen/creatinine mass ratio 23 NRG Serum or plasma creatinine measurement with calculation of estimated glomerular filtration rate > NRG Serum or plasma glucose measurement (mass/volume) 91 mg/dL 70-105 Serum or plasma calcium measurement (mass/volume) 8.4 mg/dL 8.5-10.1 Serum or plasma total bilirubin measurement (mass/volume) 0.2 mg/dL 0.1-1.0 Serum or plasma alkaline phosphatase measurement (enzymatic activity/volume) 147 U/L 40-136 Serum or plasma aspartate aminotransferase measurement (enzymatic activity/ volume) 73 U/L 5-34 Serum or plasma alanine aminotransferase measurement (enzymatic activity/volume ) 21 U/L 0-55 Serum or plasma protein measurement (mass/volume) 8.8 g/dL 6.4-8.2 Serum or plasma albumin measurement (mass/volume) 4.0 g/dL 3.2-4.5 Serum or plasma amylase measurement (enzymatic activity/volume) - 07/24/16 01: 56 Serum or plasma amylase measurement (enzymatic activity/volume) 23 U /L 25-125 Lipase - 07/24/16 01:56 Lipase 23 U/L 8-78 Serum or plasma ethanol measurement (mass/volume) - 07/24/16 01:56 Serum or plasma ethanol measurement (mass/volume) < mg/dL <10 Urine drug screening test - 07/24/16 03:24 Urine phencyclidine detection by screening method NEGATIVE NEGATIVE Urine benzodiazepines detection by screening method POSITIVE NEGATIVE Urine cocaine detection NEGATIVE NEGATIVE Urine amphetamines detection by screening method NEGATIVE NEGATIVE Urine methamphetamine detection by screening method NEGATIVE NEGATIVE Urine cannabinoids detection by screening method NEGATIVE NEGATIVE Urine opiates detection by screening method NEGATIVE NEGATIVE Urine barbiturates detection NEGATIVE NEGATIVE Screening urine tricyclic antidepressants detection NEGATIVE NEGATIVE Urine methadone detection by screening method NEGATIVE NEGATIVE Urine oxycodone detection NEGATIVE NEGATIVE Urine propoxyphene detection NEGATIVE NEGATIVE Complete urinalysis with reflex to culture - 07/24/16 03:24 Urine color determination YELLOW NRG Urine clarity determination CLEAR NRG Urine pH measurement by test strip 6 5-9 Specific gravity of urine by test strip 1.020 1.016- 1.022 Urine protein assay by test strip, semi-quantitative 1+ NEGATIVE Urine glucose detection by automated test strip NEGATIVE NEGATIVE Erythrocytes detection in urine sediment by light microscopy 1+ NEGATIVE Urine ketones detection by automated test strip NEGATIVE NEGATIVE Urine nitrite detection by test strip NEGATIVE NEGATIVE Urine total bilirubin detection by test strip NEGATIVE NEGATIVE Urine urobilinogen measurement by automated test strip (mass/volume) NORMAL NORMAL Urine leukocyte esterase detection by dipstick 1+ NEGATIVE Automated urine sediment erythrocyte count by microscopy (number/high power field) RARE NRG Automated urine sediment leukocyte count by microscopy (number/high power field ) RARE NRG Bacteria detection in urine sediment by light microscopy TRACE NRG Squamous epithelial cells detection in urine sediment by light microscopy 10-25 NRG Crystals detection in urine sediment by light microscopy PRESENT NRG Casts detection in urine sediment by light microscopy NONE NRG Mucus detection in urine sediment by light microscopy MODERATE NRG Complete urinalysis with reflex to culture NO NRG Amorphous sediment detection in urine sediment by light microscopy MOD KUMAR URATES NRG Bacterial urine culture - 07/24/16 03:24 Bacterial urine culture [id number] NRG COLONY COUNT >100,000/ML NRG FREE TEXT ENTRY 2 MIXED GRAM POSITIVE VINI <10,000/ML NRG Encounters ACCT No. Visit Date/Time Discharge Status Pt. Type Provider Facility Loc./Unit Complaint [id number] 12/24/2013 16:27:00 12/24/2013 23:59:59 CLS Outpatient MARIELY LIN, MARIANA [id number] 10/01/2013 14:00:00 10/01/2013 23:59:59 CLS Outpatient MARIANA SCHUSTER MD [id number] 06/11/2013 10:40:00 06/11/2013 23:59:59 CLS Outpatient MARIANA SCHUSTER MD [id number] 06/11/2013 10:40:00 06/11/2013 23:59:59 CLS Outpatient JENNIFER MEDRANO DO [id number] 02/12/2013 14:11:00 02/12/2013 23:59:59 CLS Outpatient MARIANA SCHUSTER MD [id number] 09/11/2012 09:21:00 09/11/2012 23:59:59 CLS Outpatient MARIANA SCHUSTER MD [id number] 06/22/2012 10:01:00 06/22/2012 23:59:59 CLS Outpatient MARIANA SCHUSTER MD [id number] 01/09/2013 14:53:00 Document Registration [id number] 09/11/2012 09:21:00 Document Registration [id number] 10/21/2016 09:02:00 10/21/2016 23:59:59 CLS Outpatient KATHLEEN MOORE [facility] RAD G89.29 [id number] 07/24/2016 01:27:00 07/24/2016 04:15:00 DIS Emergency ANDREA LEONARD GILMA Eric [facility] ER ABD PAIN [id number] 02/10/2016 17:06:00 02/10/2016 18:13:00 DIS Emergency RIKY HELMS APRN [facility] ER L KNEE PAIN [id number] 01/05/2016 00:31:00 01/05/2016 04:28:00 DIS Emergency JAMIE KNOX MD [facility] ER L FOOT PAIN [id number] 01/01/2016 16:19:00 01/02/2016 14:34:00 DIS Inpatient KISHA WOOD MD [facility] 4TH NARCOTIC OVERDOES,L CALCUMEAL FRACTURE [id number] 10/13/2013 09:07:00 10/13/2013 10:38:00 DIS Emergency ELAINE CASAS MD [facility] ER FINGER LACERATION [id number] 02/01/2013 13:53:00 02/01/2013 23:59:59 CLS Outpatient MARIELY LIN, MARIANA Self [facility] RAD ROUTINE [id number] 01/21/2013 22:58:00 01/22/2013 00:15:00 DIS Emergency AGUUSTO LIN, ELAINE Franco [facility] ER FALL; L FOOT PAIN [id number] 09/23/2017 06:53:00 ACT Emergency MAHENDRA LIN, LEROY Vaca [facility] ER SPIDER IN LEFT EAR [id number] 11/23/2011 09:01:00 Document Registration [id number] 08/21/2010 15:46:00 Document Registration
--- OUTSIDE RECORDS SUMMARY | 2017-09-23 06:58 | XMS REPORT ---
Author Author KATHLEEN MOORE [facility] Address [address] [place] [address] Care Team Providers Care Paraffiner Name Role Phone KATHLEEN MOORE Unavailable PROBLEMS Type Condition ICD9-CM Code [id number] Code Onset Dates Condition Status SNOMED Code Problem Chronic pain syndrome G89.4 Active 123916701 Problem Other chronic pain G89.29 Active 35015216 Problem Anxiety F41.9 Active 99977685 Problem Chronic pain G89.29 Active 41898487 Problem Arthritis of right hip M19.90 Active 51633634 ALLERGIES Unknown Allergies SOCIAL HISTORY No smoking Hx information available PLAN OF CARE VITAL SIGNS MEDICATIONS Medication Instructions Dosage Frequency Start Date End Date Duration Status Valium 5 mg Orally Twice a day 1 tablet as needed 12h 25 May, 2016 28 days Active RESULTS No Results PROCEDURES No Known procedures IMMUNIZATIONS No Known Immunizations
--- OUTSIDE RECORDS SUMMARY | 2017-09-23 06:58 | XMS REPORT ---
Author Author KATHLEEN MOORE Organization [employer] Address Unknown Phone Unavailable Care Team Providers Care Head Of Merchandise Buying Name Role Phone KATHLEEN MOORE CP Unavailable Allergies No Known Allergies Problems Problem Type Condition ICD-9 Code Onset Dates Condition Status Problem Anxiety state, unspecified 300.00 Active Problem Urinary tract infection, site not specified 599.0 Active Problem Candidiasis of vulva and vagina 112.1 Active Problem Acute upper respiratory infections of unspecified site 465.9 Active Medications No Known Medications Results No Known Results Summary Purpose [employer] Submission
[2017-09-23] MEDS ORDERED: LIDOCAINE 2% VISCOUS 15 ML UDC ONE (07:12)
--- NOTE | 2017-09-23 07:24 | ED EENT ---
History of Present Illness General Chief Complaint: Ear Problems Stated Complaint: SPIDER IN LEFT EAR Nursing Triage Note: ARRIVED VIA AMB WITH COMPLAINTS OF THINKING SHE HAS A BUG IN HER LEFT EAR. Source: patient, family History of Present Illness Date Seen by Provider: Sep 23, 2017 Time Seen by Provider: 07:22 Initial Comments This 47 year-old white female presents with left ear pain which she believes is from a bug in her ear. However she describes progressive pain in the left ear throughout the night. No associated fever of chill. Nor URI symptoms. Allergies and Home Medications Allergies Coded Allergies: amoxicillin (Verified Allergy, Unknown, 01/01/16) GI codeine (Verified Allergy, Unknown, 10/18/05) Home Medications Buspirone HCl 10 Mg Tablet, 10 MG PO BID, (Reported) Hydrocodone/Acetaminophen 1 Each Tablet, 1 TAB PO Q6H PRN for PAIN Prescribed by: KISHA WOOD on 01/02/16 1401 Hydrocodone/Acetaminophen 1 Each Tablet, 1 EACH PO Q4H PRN for PAIN Prescribed by: RIKY HELMS on 02/10/16 180 Hyoscyamine Sulfate 0.125 Mg Tab.subl, 1-2 TAB SL Q4H Prescribed by: GILMA MENDEZ on 07/24/16404 Meloxicam 7.5 Mg Tablet, 7.5 MG PO DAILY Prescribed by: RIKY HELMS on 02/10/161808 Mirtazapine 30 Mg Tablet, 30 MG PO HS, (Reported) Nitrofurantoin Monohyd/M-Cryst 100 Mg Capsule, 100 MG PO BID Prescribed by: GILMA MENDEZ on 07/24/16404 Ondansetron 4 Mg Tab.rapdis, 4 MG PO Q4H Prescribed by: GILMA MENDEZ on 07/24/16404 Oxycodone HCl/Acetaminophen 1 Each Tablet, 1 EACH PO Q4H PRN for PAIN Prescribed by: JAMIE YUNG on 01/05/16 042 Sertraline HCl 100 Mg Tablet, 200 MG PO DAILY, (Reported) TAKES 2 (100MG) TABLETS Patient Home Medication List Home Medication List Reviewed: Yes Review of Systems Constitutional: No chills Eyes: Denies Drainage Ears: Denies Dizziness, Pain Nose: denies congestion, denies epistaxis Mouth: denies bloody discharge Throat: denies pain, denies swelling Respiratory: No cough Cardiovascular: No chest pain Gastrointestinal: No abdominal pain, No diarrhea, No nausea, No vomiting Musculoskeletal: No back pain Skin: No change in color Neurological: No Symptoms Reported Hematologic/Lymphatic: No Symptoms Reported Past Bwqmete-Xglrpc-Jadevh Hx Patient Social History Alcohol Use: Denies Use Recreational Drug Use: No Smoking Status: Current Everyday Smoker Type Used: Cigarettes Recent Foreign Travel: No Contact w/Someone Who Travel: No Recent Hopitalizations: No Immunizations Up To Date Tetanus Booster (TDap): More than 5yrs Seasonal Allergies Seasonal Allergies: No Surgeries History of Surgeries: Yes Surgeries: Appendectomy, Gallbladder, Hysterectomy, Oophorectomy, Orthopedic Respiratory History of Respiratory Disorde: No Cardiovascular History of Cardiac Disorders: No Neurological History of Neurological Disord: No 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 System Hx 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 Disorders: No Sexually Transmitted Disease: No HIV/AIDS: No 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 Genitourinary Genitourinary Disorders: Bladder Infection, UTI-Chronic Gastrointestinal History of Gastrointestinal Di: Yes Gastrointestinal Disorders: Abdominal Hernia, Gastroesophageal Reflux Musculoskeletal History of Musculoskeletal Dis: Yes (CHRONIC LEFT FOOT PAIN ) Musculoskeletal Disorders: Degenerate Disk Disease, Fibromyalgia, Chronic Back Pain, Fractures Endocrine History of Endocrine Disorders: No HEENT History of HEENT Disorders: No Cancer History of Cancer: No Did You Recieve Any Treatments: No Psychosocial History of Psychiatric Problem: Yes Behavioral Health Disorders: Anxiety, PTSD, Depression Integumentary History of Skin or Integumenta: No Blood Transfusions History of Blood Disorders: No Adverse Reaction to a Blood Tr: No Reviewed Nursing Assessment Reviewed/Agree w Nursing PMH: Yes Family Medical History Significant Family History: No Pertinent Family Hx Physical Exam Vital Signs Vital Signs - First Documented 09/23/17 06:59 Pulse 81 Resp 18 B/P (MAP) 131/78 General Appearance: mild distress Eyes: bilateral eye normal inspection Ears: left ear other (there is marked erythema of the canal and eardrum. There is a whitish patch at the 4 o'clock position on the tympanic membrane suggestive of scarring perhaps from previous ear infections), bilateral ear auricle normal Nose: normal inspection Neck: normal inspection Cardiovascular: regular rate, rhythm Respiratory: lungs clear Gastrointestinal: normal bowel sounds Neurologic/Psychiatric: no motor/sensory deficits, alert, normal mood/affect, oriented x 3 Skin: normal color, warm/dry Progress/Results/Core Measures Results/Orders My Orders Orders - LEROY MCCRAY MD Lidocaine 2% Viscous 15 Ml (Xylocaine Vi (09/23/17 07:12) Medications Given in ED Current Medications Medications Dose Ordered Sig/Sim Route Start Time Stop Time Status Last Admin Dose Admin Lidocaine HCl 15 ml STK-MED ONCE .ROUTE 09/23/17 07:12 09/23/17 07:16 DC 09/23/17 07:29 15 ML Vital Signs/I&O Vital Sign - Last 12Hours 09/23/17 06:59 Pulse 81 Resp 18 B/P (MAP) 131/78 Progress Note : Time: 07:31 Progress Note I did not see any evidence of an insect in the canal. I did discuss treatment options with the patient and we put small amount of viscous Xylocaine in the left ear canal with significant improvement in the patient's discomfort. I called Dr. Newman (ENT) who is kind enough to agree to present and evaluate the patient a bit later this morning after he had finished his immediate activities. 735 a.m. The patient had reported to the nurse and to myself that her ear felt much better. The patient suddenly left in the course of treatment. I will notify Dr. Newman that he is not going to have to come see the patient in emergency department this time. Departure Impression Impression: Primary Impression: Ear pain, left Disposition: Condition: Improved Departure-Patient Inst. Decision time for Depature: 07:36 Referrals: MARIANA SCHUSTER MD (PCP) Primary Care Physician KATHLEEN MOORE (Family) Primary Care Physician Patient Instructions: Ear Infections (Otitis Media) (DC) Add. Discharge Instructions: The patient left during the course of treatment in the emergency department. I asked her to follow up closely with Dr. Newman. Patient was invited to return to the emergency department if she had any further problems or questions. All discharge instructions reviewed with patient and/or family. Voiced understanding. LEROY MCCRAY MD Sep 23, 2017 07:24
== END 2017-09-23 07:35 | disposition left against medical advice (07) ==
LOC: EDUNIT# 06:50 → ER 06:53
DX: H92.02 Otalgia, left ear (principal); F41.9 Anxiety disorder, unspecified; F32.9 Major depressive disorder, single episode, unspecified; F43.10 Post-traumatic stress disorder, unspecified; M47.9 Spondylosis, unspecified; K21.9 Gastro-esophageal reflux disease without esophagitis; F17.210 Nicotine dependence, cigarettes, uncomplicated; Z90.710 Acquired absence of both cervix and uterus; Z87.19 Personal history of other diseases of the digestive system; Z90.49 Acquired absence of other specified parts of digestive tract; Z88.1 Allergy status to other antibiotic agents; Z88.5 Allergy status to narcotic agent
CPT/HCPCS: 99282

== ENCOUNTER 2018-12-24 23:14 | Observation (INO) | payer MEDICARE ==
[~2018-12-24] VITALS: Ht 162.6 cm; Wt 82.7 kg
[~2018-12-24 23:14] MED LIST changes: +HYDR-4226 PO; -HYDR-757 PO; -OXYC-197 PO; +OXYC1TAB87 PO
[2018-12-24] MEDS ORDERED: ZIPRASIDONE 20 MG INJ (GEODON) VIAL IM ONE ×2 (23:17→23:30)
[2018-12-24] MEDS ORDERED: WATER (STERILE) FOR INJECTION 10 ML ONE (23:18)
[2018-12-24] MEDS ORDERED: NS IV 1000 ML 1,000 ML IV SCH (23:21)
[2018-12-24 23:45] LABS: BASOPHILS % (AUTO) 0 % (0-10); EOSINOPHILS # (AUTO) 0.2 10^3/uL (0.0-0.3); EOSINOPHILS % (AUTO) 2 % (0-10); HEMATOCRIT 36 % (35-52); HEMOGLOBIN 12.6 G/DL (11.5-16.0); LYMPHOCYTES # (AUTO) 1.9 X 10^3 (1.0-4.0); LYMPHOCYTES % (AUTO) 22 % (12-44); MEAN CORPUSCULAR HEMOGLOBIN 31 PG (25-34); MEAN CORPUSCULAR HGB CONC 35 G/DL (32-36); MEAN CORPUSCULAR VOLUME 89 FL (80-99); MEAN PLATELET VOLUME 10.2 FL (7.4-10.4); MONOCYTES # (AUTO) 0.7 X 10^3 (0.0-1.0); MONOCYTES % (AUTO) 8 % (0-12); NEUTROPHILS # (AUTO) 5.8 X 10^3 (1.8-7.8); NEUTROPHILS % (AUTO) 67 % (42-75); PLATELET COUNT 183 10^3/uL (130-400); RED CELL DISTRIBUTION WIDTH 13.4 % (10.0-14.5); WHITE BLOOD COUNT 8.6 10^3/uL (4.3-11.0)
--- NOTE | 2018-12-24 23:52 | ED Psychosocial ---
General Chief Complaint: Psych/Social Disorder Stated Complaint: PASSED OUT Nursing Triage Note: Patients advises that she was planning to go to the [facility] with her sister. When the patient did not come home he found out that the patient had went to [place] with her sister. Patient and her had a disagreement and the patient did not return home until tonight. He advises that the patient has a hx. of PTSD and bipolar disorder and has been off of her medications for approximately 4 days. When patient arrived to the ER via EMS she was screaming and holding onto her . Source: patient Exam Limitations: no limitations History of Present Illness Date Seen by Provider: Dec 24, 2018 Time Seen by Provider: 23:05 Initial Comments The patient presents to ER by EMS with chief complaint she was found laying in the alley phoned in by somebody. She has some behavioral issues and was called the EMS when she arrived at the ER she began to scream violently and loud confusing tenriism grandiose thinking. She can speak as though other people ins peterson of her head. Skipped off about Amberly. Her accompanies her and says that she had this happen once before when she was 10 years ago. He said recently they've had in agreement and patient had went out but did not come home. So he has not been there for the past couple days. He says she used to use opiates a lot and now she is on Suboxone but denies since he's noted that she's ever used methamphetamine and cocaine, bath salts or other drugs. He says for the past several days she has been off her medications Zoloft, Suboxone and Remeron for sleep. She does not appear to be on any antipsychotic medications. He said that she does have a history of bipolar disorder and PTSD. He says she spent 3 days in a inpatient psych hospital 10 years ago and when they got her back on her regular meds she evened out and has never had any problems since. No mention from the patient or of suicidal intent or homicidal intent. Allergies and Home Medications Allergies Coded Allergies: amoxicillin (Verified Allergy, Unknown, 01/01/16) GI codeine (Verified Allergy, Unknown, 10/18/05) Home Medications Buspirone HCl 10 Mg Tablet, 10 MG PO BID, (Reported) Hydrocodone/Acetaminophen 1 Each Tablet, 1 TAB PO Q6H PRN for PAIN Prescribed by: KISHA WOOD on 01/02/16 1401 Hydrocodone/Acetaminophen 1 Each Tablet, 1 EACH PO Q4H PRN for PAIN Prescribed by: RIKY HELMS on 02/10/16 180 Hyoscyamine Sulfate 0.125 Mg Tab.subl, 1-2 TAB SL Q4H Prescribed by: GILMA MENDEZ on 07/24/16 040 Meloxicam 7.5 Mg Tablet, 7.5 MG PO DAILY Prescribed by: RIKY HELMS on 02/10/161808 Mirtazapine 30 Mg Tablet, 30 MG PO HS, (Reported) Nitrofurantoin Monohyd/M-Cryst 100 Mg Capsule, 100 MG PO BID Prescribed by: GILMA MENDEZ on 07/24/16404 Ondansetron 4 Mg Tab.rapdis, 4 MG PO Q4H Prescribed by: GILMA MENDEZ on 07/24/16 040 Oxycodone HCl/Acetaminophen 1 Each Tablet, 1 EACH PO Q4H PRN for PAIN Prescribed by: JAMIE YUNG on 01/05/16 042 Sertraline HCl 100 Mg Tablet, 200 MG PO DAILY, (Reported) TAKES 2 (100MG) TABLETS Patient Home Medication List Home Medication List Reviewed: Yes Review of Systems Constitutional: see HPI (history of present illness per . She's not been exhibiting any signs of illness lately recently.); No chills, No diaphoresis EENTM: see HPI; No ear discharge, No hearing loss, No ear pain Respiratory: see HPI; No cough, No dyspnea on exertion Cardiovascular: see HPI; No chest pain, No edema Past Knxikpn-Xtaxfx-Rbbmzr Hx Patient Social History Alcohol Use: Occasionally Uses Recreational Drug Use: No Type Used: Cigarettes Recent Foreign Travel: No Contact w/Someone Who Travel: No Recent Infectious Disease Expo: No Recent Hopitalizations: No Immunizations Up To Date Tetanus Booster (TDap): More than 5yrs Seasonal Allergies Seasonal Allergies: No Past Medical History Surgeries: Yes Appendectomy, Gallbladder, Hysterectomy, Oophorectomy, Orthopedic Respiratory: No Cardiac: No Neurological: No 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 Disorders: 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 Sexually Transmitted Disease: No HIV/AIDS: No Bladder Infection, UTI-Chronic Gastrointestinal: Yes Abdominal Hernia, Gastroesophageal Reflux Musculoskeletal: Yes (CHRONIC LEFT FOOT PAIN ) Degenerate Disk Disease, Fibromyalgia, Chronic Back Pain, Fractures Endocrine: No HEENT: No Cancer: No Did You Recieve Any Treatments: No Psychosocial: Yes Anxiety, PTSD, Depression Integumentary: No Blood Disorders: No Adverse Reaction/Blood Tranf: No Family Medical History No Pertinent Family Hx Physical Exam Vital Signs - First Documented 12/24/18 12/25/18 23:22 01:45 Temp 98.0 Pulse 111 Resp 14 B/P (MAP) 143/107 (119) Pulse Ox 97 O2 Delivery Room Air Capillary Refill : Less Than 3 Seconds Height, Weight, BMI Height: 5'4.00" Weight: 180lbs. 4.0oz. [id number]; 28.12 BMI Method:Stated General Appearance: WD/WN, no apparent distress HEENT: normal ENT inspection, pharynx normal Neck: full range of motion, normal inspection Respiratory: no respiratory distress, no accessory muscle use Cardiovascular: normal peripheral pulses, regular rate, rhythm Peripheral Pulses: 2+ Radial Pulses (R), 2+ Radial Pulses (L) Gastrointestinal: normal bowel sounds, non tender, soft Extremities: normal capillary refill Neurologic/Psychiatric: alert, other (agitated) Appearance/Memory: disheveled, impaired insight, impaired recent memory, impaired remote memory, other (disheveled) Behavior/Eye Contact: avoids eye contact, increased rate of speech, compulsive Thoughts/Hallucinations: grandiose, obsessive, paranoid, persecution, tenriism Skin: normal color, warm/dry Progress/Results/Core Measures Results/Orders Lab Results Laboratory Tests Test 12/24/18 00:25 12/24/18 23:30 Range/Units Urine Color EMMETT H Urine Clarity CLEAR Urine pH 6 5-9 Urine Specific [place] 1.025 H 1.016-1.022 Urine Protein 2+ H NEGATIVE Urine Glucose (UA) NEGATIVE NEGATIVE Urine Ketones 2+ H NEGATIVE Urine Nitrite NEGATIVE NEGATIVE Urine Bilirubin 1+ H NEGATIVE Urine Urobilinogen 4 H NORMAL MG/DL Urine Leukocyte Esterase 2+ H NEGATIVE Urine RBC (Auto) 4+ H NEGATIVE Urine RBC 50-100 H /HPF Urine WBC 0-2 /HPF Urine Squamous Epithelial Cells 0-2 /HPF Urine Crystals NONE /LPF Urine Bacteria TRACE /HPF Urine Casts NONE /LPF Urine Mucus LARGE H /LPF Urine Culture Indicated NO Urine Test NEGATIVE NEGATIVE Urine Opiates Screen NEGATIVE NEGATIVE Urine Oxycodone Screen NEGATIVE NEGATIVE Urine Methadone Screen NEGATIVE NEGATIVE Urine Propoxyphene Screen NEGATIVE NEGATIVE Urine Barbiturates Screen NEGATIVE NEGATIVE Ur Tricyclic Antidepressants Screen NEGATIVE NEGATIVE Urine Phencyclidine Screen NEGATIVE NEGATIVE Urine Amphetamines Screen NEGATIVE NEGATIVE Urine Methamphetamines Screen NEGATIVE NEGATIVE Urine Benzodiazepines Screen NEGATIVE NEGATIVE Urine Cocaine Screen NEGATIVE NEGATIVE Urine Cannabinoids Screen NEGATIVE NEGATIVE White Blood Count 8.6 4.3-11.0 10^3/uL Red Blood Count 4.07 L 4.35-5.85 10^6/uL Hemoglobin 12.6 11.5-16.0 G/DL Hematocrit 36 35-52 % Mean Corpuscular Volume 89 80-99 FL Mean Corpuscular Hemoglobin 31 25-34 PG Mean Corpuscular Hemoglobin Concent 35 32-36 G/DL Red Cell Distribution Width 13.4 10.0-14.5 % Platelet Count 183 130-400 10^3/uL Mean Platelet Volume 10.2 7.4-10.4 FL Neutrophils (%) (Auto) 67 42-75 % Lymphocytes (%) (Auto) 22 12-44 % Monocytes (%) (Auto) 8 0-12 % Eosinophils (%) (Auto) 2 0-10 % Basophils (%) (Auto) 0 0-10 % Neutrophils # (Auto) 5.8 1.8-7.8 X 10^3 Lymphocytes # (Auto) 1.9 1.0-4.0 X 10^3 Monocytes # (Auto) 0.7 0.0-1.0 X 10^3 Eosinophils # (Auto) 0.2 0.0-0.3 10^3/uL Basophils # (Auto) 0.0 0.0-0.1 10^3/uL Sodium Level 139 135-145 MMOL/L Potassium Level 3.4 L 3.6-5.0 MMOL/L Chloride Level 107 98-107 MMOL/L Carbon Dioxide Level 20 L 21-32 MMOL/L Anion Gap 12 5-14 MMOL/L Blood Urea Nitrogen 13 7-18 MG/DL Creatinine 0.89 0.60-1.30 MG/DL Estimat Glomerular Filtration Rate > 60 BUN/Creatinine Ratio 15 Glucose Level 109 H 70-105 MG/DL Calcium Level 9.9 8.5-10.1 MG/DL Corrected Calcium 9.7 8.5-10.1 MG/DL Total Bilirubin 0.5 0.1-1.0 MG/DL Aspartate Amino Transf (AST/SGOT) 24 5-34 U/L Alanine Aminotransferase (ALT/SGPT) 20 0-55 U/L Alkaline Phosphatase 105 40-136 U/L Total Protein 7.3 6.4-8.2 GM/DL Albumin 4.2 3.2-4.5 GM/DL TSH [place] Testing 1.20 0.35-4.94 UIU/ML Salicylates Level < 5.0 L 5.0-20.0 MG/DL Acetaminophen Level < 10 L 10-30 UG/ML Serum Alcohol < 10 <10 MG/DL My Orders Orders - AALIYAH VALDEZ Ua Culture If Indicated (12/24/18 23:21) Cbc With Automated Diff (12/24/18 23:21) Comprehensive Metabolic Panel (12/24/18 23:21) Alcohol (12/24/18 23:21) Drug Screen Stat (Urine) (12/24/18 23:21) Acetaminophen (12/24/18 23:21) Salicylate (12/24/18 23:21) Ekg Tracing (12/24/18 23:21) Hcg,Qualitative Urine (12/24/18 23:21) Ed Iv/Invasive Line Start (12/24/18 23:21) Thyroid Analyzer (12/24/18 23:21) Monitor-Rhythm Ecg Trace Only (12/24/18 23:21) Bh Status Checks/Observation Q15M (12/24/18 23:21) Ed Iv/Invasive Line Start (12/24/18 23:21) Ns Iv 1000 Ml (Sodium Chloride 0.9%) (12/24/18 23:21) Ziprasidone Injection (Geodon Injection) (12/24/18 23:30) Ziprasidone Injection (Geodon Injection) (12/24/18 23:17) Water (Sterile) For Injection (Sterile W (12/24/18 23:18) Medications Given in ED Current Medications Medications Dose Ordered Sig/Sim Route Start Time Stop Time Status Last Admin Dose Admin Sterile Water 10 ml @ ud STK-MED ONCE .ROUTE 12/24/18 23:18 12/24/18 23:24 DC 12/24/18 23:18 1 MLS/HR Ziprasidone 20 mg ONCE ONCE IM 12/24/18 23:30 12/24/18 23:31 DC 12/24/18 23:18 20 MG Vital Signs/I&O 12/24/18 12/25/18 23:22 01:45 Temp 98.0 Pulse 111 79 Resp 14 18 B/P (MAP) 143/107 (119) 100/62 (75) Pulse Ox 97 97 O2 Delivery Room Air 12/25/18 00:00 Intake Total 10 ml Balance 10 ml Blood Pressure Mean: 119 Progress Progress Note #1: Time: 23:54 Progress Note Geodon 20 mg IM and she calm down and she still awake alert sitting up mumbling softly to herself and cooperative. We will obtain basic workup and then look for placement that is appropriate. She was quite a bit more upset when the was in the room however she was not saying anything is angry towards him just talking about how they were trying to strangle Amberly. Her does not know anybody named Amberly. The patient produced herself as both Amberly and Jackelin. Progress Note #2: Time: 01:21 Progress Note [facility] is on diversion until they do some discharges in the morning. [facility] has the same story. [facility] says they are accepting faxes and after we have some discharges in the morning which should have availability. We faxed paperwork to [facility]. The said he is willing to drive the patient and would prefer to [place] if possible. The numbing ointment and put the patient on observation status. She still sleeping. The blood seen in the urine is either from the trauma of catheterization. Initial ECG Impression Date: Dec 24, 2018 Initial ECG Impression Time: 23:51 Initial ECG Rate: 76 Initial ECG Rhythm: Normal Sinus Initial ECG Intervals: Normal Initial ECG Impression: Normal, Nonspecific Changes Initial ECG Comparisson: Unchanged Comment Incomplete right bundle-branch block with normal sinus rhythm and no ST eleva tion or depression. Departure Communication (Admissions) Time/Spoke to Admitting Phy: 01:30 Discussed case lab EKG with Dr. Terrazas she agrees to observe the patient for inpatient psychiatric placement in the morning. Impression Primary Impression: Psychosis Disposition: ADMITTED INPATIENT Condition: Stable Admissions Decision to Admit Reason: Admit from ER (General) Decision to Admit/Date: Dec 25, 2018 Time/Decision to Admit Time: 01:10 Departure-Patient Inst. Referrals: MARIANA SCHUSTER MD (PCP) Primary Care Physician KATHLEEN MOORE (Family) Primary Care Physician AALIYAH VALDEZ Dec 24, 2018 23:52
[2018-12-25] VITALS (7 sets, daily range): BP systolic 103–119; BP diastolic 57–67
[2018-12-25 00:05] LABS: ALANINE AMINOTRANSFERASE 20 U/L (0-55); ALBUMIN 4.2 GM/DL (3.2-4.5); ALKALINE PHOSPHATASE 105 U/L (40-136); BILIRUBIN,TOTAL 0.5 MG/DL (0.1-1.0); BUN/CREATININE RATIO 15; CALCIUM 9.9 MG/DL (8.5-10.1); CARBON DIOXIDE 20 MMOL/L (21-32); CHLORIDE 107 MMOL/L (98-107); CREATININE SERUM 0.89 MG/DL (0.60-1.30); GFR ESTIMATED > 60; GLUCOSE 109 MG/DL (70-105); POTASSIUM 3.4 MMOL/L (3.6-5.0); SALICYLATE < 5.0 MG/DL (5.0-20.0); SODIUM 139 MMOL/L (135-145); TOTAL PROTEIN 7.3 GM/DL (6.4-8.2)
[2018-12-25 00:10] LABS: ACETAMINOPHEN < 10 UG/ML (10-30)
[2018-12-25 00:46] LABS: CLARITY,URINE CLEAR; COLOR,URINE AMBER; GLUCOSE, URINE (UA) NEGATIVE (NEGATIVE); KETONES,URINE 2+ (NEGATIVE); LEUKOCYTE ESTERASE ,URINE 2+ (NEGATIVE); NITRITE,URINE NEGATIVE (NEGATIVE); PH,URINE 6 (5-9); PROTEIN,URINE 2+ (NEGATIVE); UROBILINOGEN,URINE 4 MG/DL (NORMAL)
[2018-12-25 00:48] LABS: AMPHETAMINE SCREEN, URINE NEGATIVE (NEGATIVE); BARBITURATE SCREEN URINE NEGATIVE (NEGATIVE); BENZODIAZEPINES SCREEN URINE NEGATIVE (NEGATIVE); CANNABINOID SCREEN, URINE NEGATIVE (NEGATIVE); COCAINE SCREEN URINE NEGATIVE (NEGATIVE); HCG,QUALITATIVE URINE NEGATIVE (NEGATIVE); METHADONE STAT NEGATIVE (NEGATIVE); METHAMPHETAMINE SCREEN URINE S NEGATIVE (NEGATIVE); OPIATE SCREEN URINE NEGATIVE (NEGATIVE); OXYCODONE STAT NEGATIVE (NEGATIVE); PROPOXYPHENE STAT NEGATIVE (NEGATIVE); TRICYCLIC ANTIDEPRESSANTS SCRE NEGATIVE (NEGATIVE)
[2018-12-25 01:04] LABS: BILIRUBIN,URINE 1+ (NEGATIVE)
[2018-12-25 01:05] LABS: BACTERIA,URINE TRACE /HPF; RBC,URINE 50-100 /HPF; SQUAMOUS EPITHELIAL CELL,UR 0-2 /HPF; WBC,URINE 0-2 /HPF
--- NOTE | 2018-12-25 01:55 | NUR ---
DELON ZELAYA WAS admitted to room 408-1, with an admitting diagnosis of PSYCHOSIS , on 12/25/18 from ED via W/C, accompanied by AND STAFF.DELON ZELAYA introduced to surroundings, call light, bed controls, phone, TV, temperature control, lights, meal times, smoking policy, visitor policy, side rail policy, bathrooms and showers. Patient Rights given to patient in the handbook.DELON ZELAYA verbalizes understanding that [facility] is not responsible for the loss or damage to any personal effects or valuables that are kept in the patients posession during their hospitalization. The following Patient Care Plans were discussed with the : Discharge Planning, ,, and . DELON ZELAYA verbalizes understanding of Interdisciplinary Patient Education.
[2018-12-25] MEDS ORDERED: ZIPRASIDONE 20 MG INJ (GEODON) VIAL IM PRN (02:45)
[2018-12-25] MEDS ORDERED: ONDANSETRON 4 MG/2 ML (SDV) Z0FRAN IV PRN (02:45)
[2018-12-25] MEDS ORDERED: ACETAMINOPHEN 500 MG TAB (TYLENOL) PO PRN (02:45)
[2018-12-25] MEDS ORDERED: SIMV40TA4 PO (09:30)
[2018-12-25] MEDS ORDERED: MIRT45TA75 PO (09:30)
[2018-12-25] MEDS ORDERED: BUPR1FIL3 SL (09:36)
--- NOTE | 2018-12-25 09:46 | History & Physical-Hospitalist ---
History of Present Illness HPI/Chief Complaint CC: Over sedation versus OD HPI: This is a 48yoWF with a hx of psychiatric issues that presented after a sycopal episode and was found to have likely an overdose source of her syncope. Pt is currently groggy still, can't provide a history, and we will await for medications to be processed and metabolized and will have a psych consult. Source: patient Date Seen 12/25/18 Time Seen by a Provider: 09:00 Attending Physician Tila Terrazas MD PCP Alexandre Vicente MD Referring Physician Date of Admission Dec 25, 2018 at 01:20 Home Medications & Allergies Home Medications Reviewed patient Home Medication Reconciliation performed by pharmacy medication reconciliations senior service technician and/or nursing. Patients Allergies have been reviewed. Allergies Allergies Coded Allergies amoxicillin (Verified Allergy, Unknown, 01/01/16) GI codeine (Verified Allergy, Unknown, 10/18/05) Past Ybxlayi-Zbpisn-Bptpba Hx Past Med/Social Hx: Reviewed Nursing Past Med/Soc Hx, Reviewed and Corrections made Patient Social History Marrital Status: Employed/Student: unemployed Alcohol Use: Occasionally Uses Recreational Drug Use: No Smoking Status: Unknown if Ever Smoked Type Used: Cigarettes Recent Foreign Travel: No Contact w/other who traveled: No Recent Hopitalizations: No Recent Infectious Disease Expo: No Immunizations Up To Date Tetanus Booster (TDap): More than 5yrs Seasonal Allergies Seasonal Allergies: No Past Medical History Surgeries: Appendectomy, Gallbladder, Hysterectomy, Oophorectomy, Orthopedic : No 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: No Sexually Transmitted Disease: No HIV/AIDS: No Hysterectomy Genitourinary: Bladder Infection, UTI-Chronic Gastrointestinal: Abdominal Hernia, Gastroesophageal Reflux Musculoskeletal: Degenerate Disk Disease, Fibromyalgia, Chronic Back Pain, Fractures Did You Recieve Any Treatments: No Psychosocial: Anxiety, PTSD, Depression History of Blood Disorders: No Adverse Reaction to Blood Ram: No Family History Cancer No Pertinent Family Hx Review of Systems Constitutional: see HPI Physical Exam Physical Exam Vital Signs Vital Signs - First Documented 12/24/18 12/25/18 23:22 01:45 Temp 98.0 Pulse 111 Resp 14 B/P (MAP) 143/107 (119) Pulse Ox 97 O2 Delivery Room Air Capillary Refill : Less Than 3 Seconds Height, Weight, BMI Height: 5'4.00" Weight: 182lbs. 6.4oz. 82.835120uk; 31.3 BMI Method:Stated General Appearance: No Apparent Distress, WD/WN, Chronically ill Respiratory: Lungs Clear, Normal Breath Sounds Cardiovascular: No Edema Skin: Normal Color, Warm/Dry Results Results/Procedures Labs Laboratory Tests 12/24/18 23:30 Patient resulted labs reviewed. Assessment/Plan Admission Diagnosis Assessment: OD Psych problems chronic pain Plan: Monitor closely Psych consult Admission Status: Observation Diagnosis/Problems Diagnosis/Problems (1) Narcotic overdose Status: Acute (2) Hypoxia Status: Acute Clinical Quality Measures DVT/VTE Risk/Contraindication: Risk Factor Score Per Nursin RFS Level Per Nursing on Admit: 2=Moderate RORY HILARIO DO Dec 25, 2018 09:46
[2018-12-25] MEDS ORDERED: OMEP40CA36 PO (11:48)
--- NOTE | 2018-12-25 11:50 | NUR ---
UNABLE TO SPEAK WITH THE PATIENT AT THIS TIME. I UPDATED THE MED REC WITH WHAT HAS BEEN FILLED RECENTLY ACCORDING TO THE EXT MED HX. I CALLED AND LEFT A MESSAGE WITH [facility] OFFICE HOWEVER THEY HAVE NOT RETURNED MY CALL YET. THE PATIENTS CALLED ME BACK AT THIS TIME AND VERIFIED WHAT HE KNOWS ABOUT HER MEDICATIONS. HE STATES SHE ONLY TAKES THE OMEPRAZOLE NEEDED. HE ALSO STATES SHE TOLD HIM SHE WAS GOING TO THROW AWAY HER MIRTAZAPINE BECAUSE SHE DID NOT NEED IT ANYMORE, HE IS UNSURE IF SHE THREW HER OTHER MEDICATIONS AWAY WELL BUT HE IS NOT ABLE TO FIND ANY OF HER BOTTLES AT HOME AT THIS TIME. Addendum: 12/25/18 at 1500 by VENKATA IBARRA [facility] GILMA AT [facility] CALLED BACK AND STATES THEY ONLY PRESCRIBE HER THE SERTRALINE AND MIRTAZAPINE, THEY DO NOT GIVE ANY SAMPLES.
--- NOTE | 2018-12-25 12:07 | NUR ---
CM/SS spoke with patient and her significant other. Patient believes she is Ashish Best and that she wants to go home (heaven) to save us all, she also believes she can not take any medications that would reduce her pain or psych meds. Her significant other states that she is normally compliant with her meds and has not been off her meds in like 10yrs. 10yrs ago was her last inpatient psych placement. Information sent to [facility], they will have beds available later this day. Message left with [facility] Intake and [facility] is full and holding.
--- NOTE | 2018-12-25 13:02 | NUR ---
CM/SS patient's significant other stopped this literary writer in the nunez and stated that he had their motion pictures cartoonist come out to talk with the patient and that she was doing better now.
--- NOTE | 2018-12-25 13:48 | NUR ---
CM/SS [facility] has no female beds.
--- NOTE | 2018-12-25 15:26 | NUR ---
CM/SS [facility] needed the home meds list before would consider placement, this was supplied to them. Their Dr does not take patients on Suboxone. Especially given she had only be reportedly off of it for 4days, they felt she was still within the withdrawal window. [facility] was going to try and check with Dr. Pandya, who prescribes the Suboxone and see if he would consult on her if admitted there, he does see patients at [facility]. Addendum: 12/25/18 at 1559 by MCKENZIE QURESHI updated patient's spouse, He stated he can get her back from anywhere further out than [facility]. Explained all [facility] beds were full and not accepting patients. He stated that the has her calmed down now and agreeable to take her medications here at hospital. He was also ok with the idea of taking her home and getting her back on her medications there. She denies any suicidal thoughts.
== END 2018-12-25 16:37 | disposition home or self-care (01) ==
LOC: EDUNIT# 23:14 → ER 23:16 → 4TH 12-25 01:20
PROVIDERS: ADMIT Family Medicine; ATTEND Family Medicine
DX: T40.601A Poisoning by unspecified narcotics, accidental (unintentional), initial encounter (principal); R09.02 Hypoxemia; G89.29 Other chronic pain; F29 Unspecified psychosis not due to a substance or known physiological condition; F43.10 Post-traumatic stress disorder, unspecified; F41.9 Anxiety disorder, unspecified; F32.9 Major depressive disorder, single episode, unspecified; M79.7 Fibromyalgia; F17.210 Nicotine dependence, cigarettes, uncomplicated; K21.9 Gastro-esophageal reflux disease without esophagitis; Z79.899 Other long term (current) drug therapy
CPT/HCPCS: 36415; 80053; 80306; 80320; 80329; 81000; 84443; 84703; 85025; 93005; 93041; 96360; 96372; G0378

== ENCOUNTER 2018-12-26 14:36 | Emergency (ER) | payer MEDICARE ==
[~2018-12-26] VITALS: Ht 162.6 cm; Wt 82.7 kg
[~2018-12-26 14:36] MED LIST changes: +BUPR1FIL3 SL; +MIRT45TA75 PO; +OMEP40CA36 PO; +SIMV40TA4 PO
[2018-12-26] MEDS ORDERED: NS IV 1000 ML 1,000 ML IV ONE (14:41)
[2018-12-26] MEDS ORDERED: RT-ALBUTEROL/IPRATROPIUM 3 ML (DUONEB) VIAL INH ONE (14:45)
[2018-12-26 14:50] LABS: BASOPHILS % (AUTO) 0 % (0-10); EOSINOPHILS % (AUTO) 0 % (0-10); HEMATOCRIT 36 % (35-52); HEMOGLOBIN 11.9 G/DL (11.5-16.0); LYMPHOCYTES # (AUTO) 0.8 X 10^3 (1.0-4.0); LYMPHOCYTES % (AUTO) 6 % (12-44); MEAN CORPUSCULAR HEMOGLOBIN 30 PG (25-34); MEAN CORPUSCULAR HGB CONC 33 G/DL (32-36); MEAN CORPUSCULAR VOLUME 91 FL (80-99); MEAN PLATELET VOLUME 10.1 FL (7.4-10.4); MONOCYTES # (AUTO) 0.9 X 10^3 (0.0-1.0); MONOCYTES % (AUTO) 7 % (0-12); NEUTROPHILS # (AUTO) 11.9 X 10^3 (1.8-7.8); NEUTROPHILS % (AUTO) 87 % (42-75); PLATELET COUNT 180 10^3/uL (130-400); RED CELL DISTRIBUTION WIDTH 13.4 % (10.0-14.5); WHITE BLOOD COUNT 13.7 10^3/uL (4.3-11.0)
[2018-12-26 15:10] LABS: ALANINE AMINOTRANSFERASE 24 U/L (0-55); ALBUMIN 3.9 GM/DL (3.2-4.5); ALKALINE PHOSPHATASE 97 U/L (40-136); BILIRUBIN,TOTAL 0.5 MG/DL (0.1-1.0); BUN/CREATININE RATIO 15; CALCIUM 9.1 MG/DL (8.5-10.1); CARBON DIOXIDE 21 MMOL/L (21-32); CHLORIDE 107 MMOL/L (98-107); CREATININE SERUM 0.84 MG/DL (0.60-1.30); GFR ESTIMATED > 60; GLUCOSE 91 MG/DL (70-105); POTASSIUM 3.3 MMOL/L (3.6-5.0); SODIUM 140 MMOL/L (135-145); TOTAL PROTEIN 6.9 GM/DL (6.4-8.2)
--- NOTE | 2018-12-26 15:15 | Diagnostic Imaging Report ---
INDICATION: Psychosis. TIME OF EXAM: 02:52 p.m. Correlation is made with prior study from 07/24/2016. FINDINGS: The heart is enlarged. The central vascularity is prominent. There are prominent interstitial markings in both lungs and findings are suspicious for mild congestive failure. No parenchymal consolidation is seen. There is no effusion or pneumothorax. IMPRESSION: Cardiomegaly and congestive changes, as described. Dictated by: Dictated on workstation # [id number]
--- NOTE | 2018-12-26 15:20 | NUR ---
TO CT PER CART.
[2018-12-26 15:25] VITALS: BP 130/83
[2018-12-26 15:33] LABS: LYMPHOCYTES % (MANUAL) 2 %; MONOCYTES % (MANUAL) 9 %; NEUTROPHILS % (MANUAL) 89 %; RBC MORPH NORMAL
--- NOTE | 2018-12-26 15:33 | NUR ---
BACK FROM CT PER CART.
--- NOTE | 2018-12-26 15:38 | Diagnostic Imaging Report ---
PROCEDURE: CT head without contrast. TECHNIQUE: Multiple contiguous axial images were obtained through the brain without the use of intravenous contrast. Auto Exposure Controls were utilized during the CT exam to meet ALARA standards for radiation dose reduction. INDICATION: Psychosis. COMPARISON: Comparison is made with prior head CT from 01/01/2016. FINDINGS: Ventricles and sulci are within normal limits. No sulcal effacement or midline shift is seen. No acute intra-axial or extra-axial hemorrhage is detected. Cisterns are patent. Visualized paranasal sinuses are clear. IMPRESSION: No acute intracranial process is detected. Dictated by: Dictated on workstation # [id number]
--- NOTE | 2018-12-26 15:40 | NUR ---
IN ROOM ASKED PATIENT TO OPEN HER EYES AND LOOK AND BE OPEN FOR SHORT WHILE THAN CLOSED. ASKED IF SHE NEEDED ANOTHER BLANKET SHOOK HER HEAD NO.
--- NOTE | 2018-12-26 15:56 | NUR ---
TO ROOM TO PLACE CATH FOR URINE INFORMED PATIENT THAT SHE COULD USE BED PAIN. PLACED ON BED MILLER UNDERWEAR REMOVED DUE TO HAVING DRIED BM IN THEM.
--- NOTE | 2018-12-26 15:58 | ED Psychosocial ---
General Chief Complaint: Psych/Social Disorder Stated Complaint: PSYCHOSIS Nursing Triage Note: ADMITTED TO ED PER EMS FROM HOME. EMS CALLED BECAUSE PATIENT WAS PULLING HER HAIR OUT AND RUBBING HER ABD. ABRASION NOTED ON ABD. TO BEDSIDE REPORTS SHE WAS ADMITTED SUN NIGHT FOR [facility] AND DISCHARGE YESTERDAY .BECAUSE SHE IMPROVED , ATIVAN 1 MG GIVEN BY EMS. PATIENT EYES CLOSED ON ADMIT WILL SHAKE HER HEAD TO YES AND NO QUESTION. PLACED ON 02 2L DUE TO SAO2 89% Source: patient, family, old records Exam Limitations: no limitations (JAMIE KNOX MD) History of Present Illness Date Seen by Provider: Dec 26, 2018 Time Seen by Provider: 14:37 Initial Comments This patient is brought to the emergency room via EMS from her home where she has been having some psychotic type behaviors. Patient has been pulling her hair and striking her head. She is also been rubbing aggressively over her abdomen causing abrasion. reports since 05:00 she has been acting "crazy" she has been banging her head on the ground. She has been combative and uncooperative and will not communicate. She has been claiming that she has both male and female. She is saying that she has god. She makes comments about the devil and Holy Ghost being women. She has been growling and spitting. Patient was exhibiting these behaviors for EMS as well. Ativan 1 mg was given by EMS as patient was uncooperative. She had been admitted to the hospital for observation on December 25. Admission to a psychiatric facility was sought but no bed placement can be secured. Patient's behavior calmed down and her took her home with planned to follow-up with outpatient psychiatric care. reports yesterday she took her usual Zoloft and Suboxone. He reports that she has been discarding her Remeron for the past week and has therefore not been sleeping well. She also has been without her Suboxone and Zoloft until she took them yesterday. He reports Tuesday she slept well and her behavior was normal. Behavior became agitated and aggressive again as 05:00 this morning. He adamantly denies that she has any drug or alcohol use in the recent past. She takes Suboxone for prior opioid dependence. Patient had an oxygen saturation of 89 percent on room air and had some mild wheezing on assessment. A DuoNeb treatment was ordered. Patient is quietly resting on arrival and will not cooperate with exam. She will shake her head yes and no in response to que stions or commands. Patient's she has had psychotic episodes in the remote past requiring admission. Patient also was noted to have had an accidental opioid overdose in 2016. (JAMIE KNOX MD) Allergies and Home Medications Allergies Coded Allergies: amoxicillin (Verified Allergy, Unknown, 01/01/16) GI codeine (Verified Allergy, Unknown, 10/18/05) Home Medications Sertraline HCl 100 Mg Tablet, 200 MG PO DAILY, (Reported) TAKES 2 (100MG) TABLETS Simvastatin 40 Mg Tablet, 40 MG PO HS, (Reported) Patient Home Medication List Home Medication List Reviewed: Yes (JAMIE KNOX MD) Review of Systems Constitutional: no symptoms reported EENTM: no symptoms reported Respiratory: see HPI Cardiovascular: no symptoms reported Gastrointestinal: no symptoms reported Genitourinary: no symptoms reported : No Musculoskeletal: no symptoms reported Skin: see HPI Psychiatric/Neurological: See HPI (JAMIE KNOX MD) Past Ibrwgec-Pkowcg-Fektbg Hx Past Med/Social Hx: Reviewed and Corrections made (JAMIE KNOX MD) Patient Social History Alcohol Use: Denies Use Recreational Drug Use: No Smoking Status: Current Everyday Smoker Type Used: Cigarettes Recent Foreign Travel: No Contact w/Someone Who Travel: No Recent Infectious Disease Expo: No Recent Hopitalizations: No (JMAIE KNOX MD) Immunizations Up To Date Tetanus Booster (TDap): More than 5yrs (JAMIE KNOX MD) Seasonal Allergies Seasonal Allergies: No (JAMIE KNOX MD) Past Medical History Surgeries: Yes Appendectomy, Gallbladder, Hysterectomy, Oophorectomy, Orthopedic Respiratory: No Cardiac: No Neurological: No 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 Disorders: No 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 Sexually Transmitted Disease: No HIV/AIDS: No Genitourinary: Yes Bladder Infection, UTI-Chronic Gastrointestinal: Yes Abdominal Hernia, Gastroesophageal Reflux Musculoskeletal: Yes (CHRONIC LEFT FOOT PAIN ) Degenerate Disk Disease, Fibromyalgia, Chronic Back Pain, Fractures Endocrine: No HEENT: No Cancer: No Did You Recieve Any Treatments: No Psychosocial: Yes Anxiety, PTSD, Depression Integumentary: No Blood Disorders: No Adverse Reaction/Blood Tranf: No (JAMIE KNOX MD) Family Medical History Cancer No Pertinent Family Hx (JAMIE KNOX MD) Physical Exam Vital Signs - First Documented 12/26/18 12/26/18 14:36 14:55 Temp 98.0 Pulse 82 Resp 18 B/P (MAP) 130/83 (99) Pulse Ox 98 O2 Delivery Room Air O2 Flow Rate 2.00 (GILMA VARGSA DO) Capillary Refill : Less Than 3 Seconds (JAMIE KNOX MD) Height, Weight, BMI Height: 5'4.00" Weight: 182lbs. 6.4oz. 82.245676pe; 31.3 BMI Method:Stated General Appearance: WD/WN, no apparent distress, other (quietly resting, refuses to cooperate with exam) HEENT: PERRL/EOMI, normal ENT inspection Neck: normal inspection Respiratory: lungs clear, normal breath sounds, no respiratory distress, no ac cessory muscle use Cardiovascular: regular rate, rhythm, no edema, no murmur Gastrointestinal: normal bowel sounds, non tender, soft, other (abrasions on the abdominal wall) Extremities: normal inspection, no pedal edema, other (abrasions on the knees) Neurologic/Psychiatric: no motor/sensory deficits, alert, other (patient refuses to cooperate with exam) Appearance/Memory: disheveled Behavior/Eye Contact: uncooperative Thoughts/Hallucinations: delusions Skin: normal color, warm/dry, other (see above) (JAMIE KNOX MD) Progress/Results/Core Measures Results/Orders My Orders Orders - GILMA VARGAS DO Iv Push Buffing Line Set Up Worker Ed (12/26/18 ) Im/Sub-Q Injection Non-Ab Ed (12/26/18 ) (GILMA VARGAS DO) Blood Pressure Mean: 99 Progress Progress Note #1: Time: 17:35 Progress Note Labs were obtained. Patient was found to have mild leukocytosis. However, CRP is not significantly elevated and infection is not suspected. Patient will not cooperate with exam. She would not give a urine specimen. When a catheter specimen was attempted, she clenched her legs tightly closed. However, patient will maneuver her body for other things such as lifting her bottom for the bedpan. She also shakes her head yes or no in response to some commands and questions. Nasal cannula had been applied prior to nebulizer treatment. She was given a DuoNeb treatment for her wheezing. Oxygen saturation on room air is now 92 percent. BNP was obtained due to read on chest x-ray. It was not significantly elevated. Progress Note #2: Time: 17:44 Progress Note I have contacted the psychiatric unit at [facility]. They are checking on availability for med psych meds. Patient is presently resting quietly. Progress Note #3: Time: 18:20 Progress Note Patient remains passively do fine and has not given us a urine specimen. I a have communicated again with [facility], and they do not have any med psych beds available. [facility] also has no psychiatric beds available and has psychiatric admissions waiting in the ER. I discussed the case with Dr. Rolon who declines admission at this facility due to patient's need for psychiatric evaluation. I will transition care of this patient to Dr. Vargas at this time. Progress Note #4: Time: 18:36 Progress Note Patient suddenly became combative and rocking in the bed. She was yelling and digging into her vagina and rectum with her fingers. She then braced herself between the rails of the bed and was pressing them apart with her legs. There was concern that she would break the bed causing injury to herself and others. She was physically restrained until Geodon could be administered. Patient was yelling incoherently and urinated in the bed. Geodon was given. Patient then started singing and became briefly sedated. She then became agitated again and Ativan is now being given. Rocephin was also empirically ordered by Dr. Vargas. Dr. Vargas is arranging admission to the ICU at [facility] where there is bed availability. (JAMIE KNOX MD) Progress Note : Progress Note 1830--ASSISTING CARE WITH DR. KNOX PT WITH ESCALATING BEHAVIOR AND COMPLETELY OUT OF CONTROL, COMBATIVE, PT YELLING, PT MASTURBATING AND SIMULATING INTERCOURSE, AND ROCKING BACK AND FORTH SO DRAMATICALLY THAT SHE IS MOVING THE ENTIRE BED PT PULLING ON BED RAILS AND PUSHING THEM APART WITH HER LEGS MULTIPLE STAFF REQUIRED TO RESTRAIN PT PT ALSO INCONTINENT OF URINE AND STOOL DURING ALL OF THIS WELL GEODON AND ATIVAN WERE GIVEN WITH CALMING OF PT. NO DETERIORATION IN PT'S CONDITION REPORTS THAT PT HAS BEEN LIKE THIS FOR THE LAST 4 DAYS, AFTER SPENDING SEVERAL DAYS WITH HER SISTER--HE STATES PT HAS BEEN LIKE THIS SINCE HE PICKED HER UP ON TUESDAY HE STATES THAT SHE POSSIBLY HAD NOT BEEN TAKING HER MEDICATIONS FOR THAT TIME PERIOD HE STATES SHE HAS HAD PSYCHOTIC EPISODES SIMILAR TO THIS IN YEARS PAST. 1900--[facility] Initial ECG Impression Date: Dec 26, 2018 Initial ECG Impression Time: 16:31 Initial ECG Rate: 87 Initial ECG Rhythm: Normal Sinus Initial ECG Intervals Incomplete right bundle branch block Comment Sinus rhythm with no ST elevation or depression. No axis deviation. (JAMIE KNOX MD) Diagnostic Imaging Diagonstic Imaging: CT Plain Films/CT/US/NM/MRI: head Comments NAME: DELON ZELAYA MED REC#: [id number] PT STATUS: REG ER : 1970 PHYSICIAN: JAMIE KNOX MD ADMIT DATE: 12/26/18/ER Draft Date of Exam:12/26/18 CT HEAD WO PROCEDURE: CT head without contrast. TECHNIQUE: Multiple contiguous axial images were obtained through the brain without the use of intravenous contrast. Auto Exposure Controls were utilized during the CT exam to meet ALARA standards for radiation dose reduction. INDICATION: Psychosis. COMPARISON: Comparison is made with prior head CT from 01/01/2016. FINDINGS: Ventricles and sulci are within normal limits. No sulcal effacement or midline shift is seen. No acute intra-axial or extra-axial hemorrhage is detected. Cisterns are patent. Visualized paranasal sinuses are clear. IMPRESSION: No acute intracranial process is detected. Dictated on workstation # [id number] Dict: 12/26/18 1533 Trans: 12/26/18 1538 [id number] Interpreted by: CARRIE WOLFE MD Diagonstic Imaging: Xray Plain Films/CT/US/NM/MRI: chest Comments NAME: DELON ZELAYA MED REC#: [id number] PT STATUS: REG ER : 1970 PHYSICIAN: JAMIE KNOX MD ADMIT DATE: 12/26/18/ER Draft Date of Exam:12/26/18 CHEST 1 VIEW, AP/PA ONLY INDICATION: Psychosis. TIME OF EXAM: 02:52 p.m. Correlation is made with prior study from 07/24/2016. FINDINGS: The heart is enlarged. The central vascularity is prominent. There are prominent interstitial markings in both lungs and findings are suspicious for mild congestive failure. No parenchymal consolidation is seen. There is no effusion or pneumothorax. IMPRESSION: Cardiomegaly and congestive changes, as described. Dictated on workstation # [id number] Dict: 12/26/18 1506 Trans: 12/26/18 1514 [id number] Interpreted by: CARRIE WOLFE MD (JAMIE KNOX MD) Departure Communication (Admissions) 1829--CALLED [facility], THEY HAVE NO BEDS AVAILABLE AT ALL 1830--CALLED [facility], HAVE BEDS, PAGING HOSPITALIST 1902--CALLED [facility], STILL ATTEMPTING TO CONTACT HOSPITALIST 1906--SPOKE WITH DR. LEE, HOSPITALIST AT [facility], ACCEPTS PT FOR ADMIT/TRANSFER 2139--EMS HERE FOR TRANSPORT. (GILMA VARGAS DO) Impression Primary Impression: Acute psychosis Additional Impressions: Combative behavior Self-harm Wheezing Leukocytosis Qualified Codes: D72.829 - Elevated white blood cell count, unspecified Disposition: 02 XFER SHT-TRM HOSP Condition: Stable Transfer Transfer Time: 21:48 Transfer Facility: [facility] Method of Transfer: EMS (JAMIE KNOX MD) Departure-Patient Inst. Referrals: MARIANA SCHUSTER MD (PCP) Primary Care Physician KATHLEEN MOORE (Family) Primary Care Physician JAMIE KNOX MD Dec 26, 2018 15:57 GILMA VARGAS DO Dec 29, 2018 06:17
--- NOTE | 2018-12-26 16:40 | NUR ---
TO ROOM ATTEMPT TO TAKE PATIENT OFF BED PAIN PRESSED SELF INTO BED PAIN WHEN TRIED TO TAKE HER OFF BED MILLER, HELD LEG'S TIGHT SO NOT TO BE ABLE TO STRAIGHT CATH HER. DR SERNA NOTIFIED STATES NOT TO WORRY ABOUT UA.
--- NOTE | 2018-12-26 17:38 | NUR ---
PLACED BACK ON 02 2L NC SAO2 DOWN TO 90% ROOM AIR NOTIFIED. Addendum: 12/26/18 at [address] CALZADA TALKING WITH TOY SPARKS
[2018-12-26 17:46] VITALS: BP 147/81
--- NOTE | 2018-12-26 17:52 | NUR ---
EYES CLOSED WILL OPEN EYES AND LOOK AT STAFF WHEN NAME CALLED.
--- NOTE | 2018-12-26 18:20 | NUR ---
CON'T TO LOOK FOR PLACEMENT CAME TO DESK AND REPORTS THAT SHE IS GETTING RESTLESS TO ROOM ASKED PATIENT TO OPEN EYES CLOSED EYE'S TIGHT AND AND SHOOK HEAD NO.
[2018-12-26] MEDS ORDERED: ZIPRASIDONE 20 MG INJ (GEODON) VIAL IM ONE ×2 (18:24→18:30)
[2018-12-26] MEDS ORDERED: WATER (STERILE) FOR INJECTION 10 ML ONE (18:25)
--- NOTE | 2018-12-26 18:32 | NUR ---
PATIENT STARTING TO HIT SELF AGAIN AND PULL HAIR. MEDS GIVEN.HAD LG BM.
--- NOTE | 2018-12-26 18:43 | NUR ---
pulled iv out after ativan given
[2018-12-26] MEDS ORDERED: LORazepam INJ 2 MG/ML (ATIVAN) VIAL IVP ONE (18:45)
[2018-12-26] MEDS ORDERED: cefTRIAXone FOR IV USE 1,000 MG in WATER (STERILE) FOR INJECTION 10 ML IV ONE (18:45)
--- NOTE | 2018-12-26 19:04 | NUR ---
PATIENT CALM LOBO AND IV RESTARTED IN R HAND #18 .
[2018-12-26 19:07] LABS: BILIRUBIN,URINE NEGATIVE (NEGATIVE); CLARITY,URINE CLEAR; COLOR,URINE YELLOW; GLUCOSE, URINE (UA) NEGATIVE (NEGATIVE); KETONES,URINE 3+ (NEGATIVE); LEUKOCYTE ESTERASE ,URINE NEGATIVE (NEGATIVE); NITRITE,URINE NEGATIVE (NEGATIVE); PH,URINE 5 (5-9); PROTEIN,URINE NEGATIVE (NEGATIVE); UROBILINOGEN,URINE NORMAL (NORMAL)
--- NOTE | 2018-12-26 19:10 | NUR ---
[facility] HAS ACCEPTED PATIENT WILL CALL BACK WITH ROOM
[2018-12-26 19:11] VITALS: BP 107/69
--- NOTE | 2018-12-26 19:12 | NUR ---
REPORT TO [facility].
[2018-12-26 19:13] LABS: BACTERIA,URINE NEGATIVE /HPF
[2018-12-26] MEDS ORDERED: D5 1/2 NS W/KCL 20 MEQ/L 1,000 ML IV SCH (19:15)
[2018-12-26 19:23] LABS: AMPHETAMINE SCREEN, URINE NEGATIVE (NEGATIVE); BARBITURATE SCREEN URINE NEGATIVE (NEGATIVE); BENZODIAZEPINES SCREEN URINE POSITIVE (NEGATIVE); CANNABINOID SCREEN, URINE NEGATIVE (NEGATIVE); COCAINE SCREEN URINE NEGATIVE (NEGATIVE); METHADONE STAT NEGATIVE (NEGATIVE); METHAMPHETAMINE SCREEN URINE S NEGATIVE (NEGATIVE); OPIATE SCREEN URINE NEGATIVE (NEGATIVE); OXYCODONE STAT NEGATIVE (NEGATIVE); PROPOXYPHENE STAT NEGATIVE (NEGATIVE); TRICYCLIC ANTIDEPRESSANTS SCRE NEGATIVE (NEGATIVE)
[2018-12-26 21:48] VITALS: BP 115/67
== END 2018-12-26 21:48 | disposition short-term general hospital (02) ==
LOC: EDUNIT# 14:36 → ER 14:37
DX: S30.811A Abrasion of abdominal wall, initial encounter (principal); F23 Brief psychotic disorder; F91.1 Conduct disorder, childhood-onset type; R06.2 Wheezing; K21.9 Gastro-esophageal reflux disease without esophagitis; M79.7 Fibromyalgia; F41.9 Anxiety disorder, unspecified; F32.9 Major depressive disorder, single episode, unspecified; F43.10 Post-traumatic stress disorder, unspecified; F17.210 Nicotine dependence, cigarettes, uncomplicated; Z90.49 Acquired absence of other specified parts of digestive tract; Z90.710 Acquired absence of both cervix and uterus; Z88.0 Allergy status to penicillin; Z88.5 Allergy status to narcotic agent; Z87.440 Personal history of urinary (tract) infections; Z87.448 Personal history of other diseases of urinary system; Z87.19 Personal history of other diseases of the digestive system; X83.8XXA Intentional self-harm by other specified means, initial encounter
CPT/HCPCS: 36415; 51702; 70450; 71045; 80053; 80306; 80320; 81000; 83880; 84484; 84703; 85007; 85027; 86141; 93005; 94640; 96361; 96372; 96374

== ENCOUNTER 2019-01-20 22:21 | Emergency (ER) | payer MEDICAID, MEDICARE ==
[~2019-01-20] VITALS: Ht 162.6 cm; Wt 79.4 kg
[2019-01-21] MEDS ORDERED: METH4TAB PO (00:40)
[2019-01-21] MEDS ORDERED: SULF1TAB35 PO (00:40)
--- NOTE | 2019-01-21 00:40 | ED Lower Extremity ---
General Chief Complaint: Lower Extremity Stated Complaint: LT SWOLLEN FOOT Allergies and Home Medications Allergies Coded Allergies: amoxicillin (Verified Allergy, Unknown, 01/01/16) GI codeine (Verified Allergy, Unknown, 10/18/05) Home Medications Sertraline HCl 100 Mg Tablet, 200 MG PO DAILY, (Reported) TAKES 2 (100MG) TABLETS Simvastatin 40 Mg Tablet, 40 MG PO HS, (Reported) Past Hawwtxv-Mfsfig-Zmzext Hx Patient Social History Type Used: Cigarettes Recent Foreign Travel: No Contact w/Someone Who Travel: No Recent Hopitalizations: No Immunizations Up To Date Tetanus Booster (TDap): More than 5yrs Seasonal Allergies Seasonal Allergies: No Past Medical History Surgeries: Yes Appendectomy, Gallbladder, Hysterectomy, Oophorectomy, Orthopedic Respiratory: No Cardiac: No Neurological: No 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 Disorders: No 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 Sexually Transmitted Disease: No HIV/AIDS: No Genitourinary: Yes Bladder Infection, UTI-Chronic Gastrointestinal: Yes Abdominal Hernia, Gastroesophageal Reflux Musculoskeletal: Yes (CHRONIC LEFT FOOT PAIN ) Degenerate Disk Disease, Fibromyalgia, Chronic Back Pain, Fractures Endocrine: No HEENT: No Cancer: No Did You Recieve Any Treatments: No Psychosocial: Yes Anxiety, PTSD, Depression Integumentary: No Blood Disorders: No Adverse Reaction/Blood Tranf: No Family Medical History Cancer No Pertinent Family Hx Physical Exam Vital Signs Capillary Refill : Height, Weight, BMI Height: 5'4.00" Weight: 182lbs. 6.4oz. 82.842594je; 31.3 BMI Method:Stated Progress/Results/Core Measures Results/Orders My Orders Orders - GILMA MENDEZ DO Foot, Left, 3 Views (01/20/19 23:09) Ankle, Left, 3 Views (01/20/19 23:09) Departure Impression Primary Impression: LEFT FOOT PAIN AND SWELLING Disposition: HOME, SELF-CARE Condition: Stable Departure-Patient Inst. Referrals: MARIANA SCHUSTER MD (PCP) Primary Care Physician KATHLEEN MOORE (Family) Primary Care Physician Patient Instructions: Muscle and Bone Pain (DC) Add. Discharge Instructions: WARM EPSON SALTS SOAKS 2-3 TIMES A DAY ICE TO AREA AT 20 MINUTE INTERVALS ELEVATE FOOT MUCH POSSIBLE FOLLOW UP WITH YOUR DR IN 2-3 DAYS FOR FURTHER CARE, RETURN TO ER IF WORSE All discharge instructions reviewed with patient and/or family. Voiced understanding. Scripts Methylprednisolone (Medrol) 4 Mg Tab.ds.pk 4 MG PO UD, #1 PKG Prov: GILMA MENDEZ DO 01/21/19 Sulfamethoxazole/Trimethoprim (Bactrim Ds Tablet) 1 Each Tablet 1 EACH PO BID, #20 TAB Prov: GILMA MENDEZ DO 01/21/19 GILMA MENDEZ DO Jan 21, 2019 00:40
[2019-01-21] MEDS ORDERED: TRIM/SULFAMETH 160/800 (SEPTRA DS) TAB PO ONE (00:45)
[2019-01-21 00:48] VITALS: BP 112/61
--- NOTE | 2019-01-21 06:37 | Diagnostic Imaging Report ---
INDICATION: Left ankle injury COMPARISON: None. FINDINGS: 3 views left ankle demonstrate prior ORIF of the calcaneus. There is minimal degenerative changes of the ankle mortise. There is no acute fracture or dislocation. IMPRESSION: No fracture or dislocation. Dictated by: Dictated on workstation # [id number]
--- NOTE | 2019-01-21 06:38 | Diagnostic Imaging Report ---
INDICATION: Left foot injury COMPARISON: None. FINDINGS: 3 views left foot demonstrate prior ORIF of the calcaneus. There is soft tissue swelling without underlying fracture or dislocation. No unexpected radiopaque foreign body is identified. IMPRESSION: No acute fracture or dislocation. Dictated by: Dictated on workstation # [id number]
== END 2019-01-21 00:48 | disposition home or self-care (01) ==
LOC: EDUNIT# 22:21 → ER 22:23
DX: M79.89 Other specified soft tissue disorders (principal); M79.672 Pain in left foot; K21.9 Gastro-esophageal reflux disease without esophagitis; M79.7 Fibromyalgia; F41.9 Anxiety disorder, unspecified; F32.9 Major depressive disorder, single episode, unspecified; F43.10 Post-traumatic stress disorder, unspecified; Z88.1 Allergy status to other antibiotic agents; Z88.5 Allergy status to narcotic agent; Z90.49 Acquired absence of other specified parts of digestive tract; Z90.710 Acquired absence of both cervix and uterus; Z87.440 Personal history of urinary (tract) infections
CPT/HCPCS: 73610; 73630

== ENCOUNTER 2019-02-19 23:25 | Emergency (ER) | payer MEDICARE ==
[~2019-02-19] VITALS: Ht 162.6 cm; Wt 79.6 kg
[~2019-02-19 23:25] MED LIST changes: +SULF1TAB35 PO
[2019-02-19 23:55] LABS: BASOPHILS % (AUTO) 0 % (0-10); EOSINOPHILS % (AUTO) 0 % (0-10); HEMATOCRIT 41 % (35-52); HEMOGLOBIN 13.7 G/DL (11.5-16.0); LYMPHOCYTES % (AUTO) 16 % (12-44); MEAN CORPUSCULAR HEMOGLOBIN 31 PG (25-34); MEAN CORPUSCULAR HGB CONC 34 G/DL (32-36); MEAN CORPUSCULAR VOLUME 92 FL (80-99); MEAN PLATELET VOLUME 9.9 FL (7.4-10.4); MONOCYTES # (AUTO) 1.2 X 10^3 (0.0-1.0); MONOCYTES % (AUTO) 9 % (0-12); NEUTROPHILS # (AUTO) 9.3 X 10^3 (1.8-7.8); NEUTROPHILS % (AUTO) 75 % (42-75); PLATELET COUNT 203 10^3/uL (130-400); RED CELL DISTRIBUTION WIDTH 13.5 % (10.0-14.5); WHITE BLOOD COUNT 12.5 10^3/uL (4.3-11.0)
[2019-02-20] MEDS ORDERED: ACETAMINOPHEN 500 MG TAB (TYLENOL) PO PRN
[2019-02-20] MEDS: NS IV 1000 ML 1,000 ML IV SCH ×2 (00:02→01:38)
[2019-02-20 00:03] LABS: PROTHROMBIN TIME PATIENT 13.7 SEC (12.2-14.7)
[2019-02-20 00:08] LABS: ALANINE AMINOTRANSFERASE 63 U/L (0-55); ALBUMIN 4.2 GM/DL (3.2-4.5); ALKALINE PHOSPHATASE 95 U/L (40-136); BILIRUBIN,TOTAL 0.4 MG/DL (0.1-1.0); BUN/CREATININE RATIO 14; CALCIUM 9.5 MG/DL (8.5-10.1); CARBON DIOXIDE 22 MMOL/L (21-32); CHLORIDE 100 MMOL/L (98-107); CREATININE SERUM 0.85 MG/DL (0.60-1.30); GFR ESTIMATED > 60; GLUCOSE 111 MG/DL (70-105); POTASSIUM 3.9 MMOL/L (3.6-5.0); SODIUM 136 MMOL/L (135-145); TOTAL PROTEIN 7.2 GM/DL (6.4-8.2)
[2019-02-20 00:40] LABS: BILIRUBIN,URINE NEGATIVE (NEGATIVE); CLARITY,URINE CLEAR; COLOR,URINE AMBER; GLUCOSE, URINE (UA) NEGATIVE (NEGATIVE); KETONES,URINE NEGATIVE (NEGATIVE); LEUKOCYTE ESTERASE ,URINE 1+ (NEGATIVE); NITRITE,URINE NEGATIVE (NEGATIVE); PH,URINE 6 (5-9); PROTEIN,URINE NEGATIVE (NEGATIVE); UROBILINOGEN,URINE NORMAL (NORMAL)
[2019-02-20 00:48] LABS: BACTERIA,URINE FEW /HPF; WBC,URINE 0-2 /HPF
[2019-02-20 01:16] LABS: AMPHETAMINE SCREEN, URINE NEGATIVE (NEGATIVE); BARBITURATE SCREEN URINE NEGATIVE (NEGATIVE); BENZODIAZEPINES SCREEN URINE NEGATIVE (NEGATIVE); CANNABINOID SCREEN, URINE NEGATIVE (NEGATIVE); COCAINE SCREEN URINE NEGATIVE (NEGATIVE); METHADONE STAT NEGATIVE (NEGATIVE); METHAMPHETAMINE SCREEN URINE S NEGATIVE (NEGATIVE); OPIATE SCREEN URINE NEGATIVE (NEGATIVE); OXYCODONE STAT NEGATIVE (NEGATIVE); PROPOXYPHENE STAT NEGATIVE (NEGATIVE); TRICYCLIC ANTIDEPRESSANTS SCRE NEGATIVE (NEGATIVE)
[2019-02-20] MEDS: KETOROLAC 30 MG/ML VIAL IVP ONE ×2 (02:32→02:54)
[2019-02-20] MEDS ORDERED: ACYCLOVIR 400 MG TABLET (ZOVIRAX) PO ONE (03:30)
--- NOTE | 2019-02-20 04:13 | ED General ---
General Chief Complaint: General Problems/Pain Stated Complaint: BLISTERS ON RT SIDE,LEGS SWELLING,HEAD POUNDING Nursing Triage Note: PT STATES SHE STARTED TAKING CHANTIX 4 DAYS AGO. PT STATES SHE NOTICED BLISTERS ON RIGHT UPPER ARM TOADAY. PT STATES "MEDICINE MAKES ME HURT" PT STATES PAIN AND NUMBNESS IN RIGHT HIP DOWN. PT STATES SYMPTOMS HAVE BEEN GOING ON SINCE SHE STARTED CHANTIX. PT STATES SHE FEELS LIKE SHE CAN'T BREATH. SPOUSE NOTES THAT PT SPEECH IS BROKEN UP AND SLURRED. Nursing Sepsis Screen: No Definite Risk Source of Information: Patient, Family Exam Limitations: No Limitations History of Present Illness Date Seen by Provider: Feb 19, 2019 Time Seen by Provider: 23:49 Initial Comments This 49-year-old woman is brought to the emergency room by her with an unusual constellation of symptoms progressing over the last few days since starting Chantix. Symptoms include fever, tachycardia, generalized aching especially in the shoulder and neck area, slurred speech, numbness on the right side, sensation of dyspnea, and blistering rash on the right upper arm. She is febrile on arrival with a temperature of 102.6. Patient also states she is having difficulty sleeping because she jolts awake anytime she drifts off to sleep. 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, altered mental status Home Medications Acyclovir 800 Mg Tablet, 800 MG PO 5XD Prescribed by: JAMIE YUNG on 02/20/19 0453 Methylprednisolone 4 Mg Tab.ds.pk, 4 MG PO UD Prescribed by: GILMA MENDEZ on 01/21/19 0040 Sertraline HCl 100 Mg Tablet, 200 MG PO DAILY, (Reported) TAKES 2 (100MG) TABLETS Simvastatin 40 Mg Tablet, 40 MG PO HS, (Reported) Sulfamethoxazole/Trimethoprim 1 Each Tablet, 1 EACH PO BID Prescribed by: GILMA MENDEZ on 01/21/19 0040 Patient Home Medication List Home Medication List Reviewed: Yes Review of Systems Review of Systems Constitutional: see HPI EENTM: no symptoms reported Respiratory: see HPI Cardiovascular: see HPI, other (tachycardia) Gastrointestinal: no symptoms reported Genitourinary: no symptoms reported : No Musculoskeletal: no symptoms reported Skin: see HPI Psychiatric/Neurological: See HPI Hematologic/Lymphatic: No Symptoms Reported Immunological/Allergic: no symptoms reported Past Ughmdrv-Skpvbs-Xvhmpd Hx Past Med/Social Hx: Reviewed and Corrections made Patient Social History Alcohol Use: Denies Use Recreational Drug Use: No Type Used: Cigarettes 2nd Hand Smoke Exposure: Yes Recent Foreign Travel: No Contact w/Someone Who Travel: No Recent Infectious Disease Expo: No Recent Hopitalizations: No Physical Abuse: No Sexual Abuse: No Mistreated: No Fear: No Immunizations Up To Date Tetanus Booster (TDap): More than 5yrs Seasonal Allergies Seasonal Allergies: No Past Medical History Surgeries: Yes (HYST/BSO; LEFT ANKLE RECONSTRUCTION) Appendectomy, Gallbladder, Hysterectomy, Oophorectomy, Orthopedic Respiratory: No Cardiac: No Neurological: No 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 Disorders: No 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 Sexually Transmitted Disease: No HIV/AIDS: No Genitourinary: Yes Bladder Infection, UTI-Chronic Gastrointestinal: Yes Abdominal Hernia, Gastroesophageal Reflux Musculoskeletal: Yes (CHRONIC LEFT FOOT/ANKLE PAIN --S/P LEFT ANKLE RECONSTRUCTION) Degenerate Disk Disease, Fibromyalgia, Chronic Back Pain, Fractures Endocrine: No HEENT: No Cancer: No Did You Recieve Any Treatments: No Psychosocial: Yes Sleep Difficulties, Anxiety, PTSD, Depression Integumentary: No Blood Disorders: No Adverse Reaction/Blood Tranf: No Family Medical History Cancer No Pertinent Family Hx Physical Exam Vital Signs Vital Signs - First Documented 02/19/19 02/19/19 23:35 23:57 Temp 102.6 Pulse 112 Resp 14 B/P (MAP) 120/86 (97) Pulse Ox 99 O2 Delivery Room Air Capillary Refill : Less Than 3 Seconds Height, Weight, BMI Height: 5'4.00" Weight: 175lbs. 6.4oz. 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85, INR Comment 1.0, Platelet Count 203, Total Bilirubin 0.4 Results/Orders Lab Results Laboratory Tests Test 02/19/19 00:32 02/19/19 23:38 02/20/19 00:32 Range/Units Urine Color EMMETT H Urine Clarity CLEAR Urine pH 6 5-9 Urine Specific Sheldon 1.015 L 1.016-1.022 Urine Protein NEGATIVE NEGATIVE Urine Glucose (UA) NEGATIVE NEGATIVE Urine Ketones NEGATIVE NEGATIVE Urine Nitrite NEGATIVE NEGATIVE Urine Bilirubin NEGATIVE NEGATIVE Urine Urobilinogen NORMAL NORMAL MG/DL Urine Leukocyte Esterase 1+ H NEGATIVE Urine RBC (Auto) 3+ H NEGATIVE Urine RBC 2-5 H /HPF Urine WBC 0-2 /HPF Urine Squamous Epithelial Cells 2-5 /HPF Urine Crystals NONE /LPF Urine Bacteria FEW H /HPF Urine Casts NONE /LPF Urine Mucus SMALL H /LPF Urine Culture Indicated CULTURE PENDING White Blood Count 12.5 H 4.3-11.0 10^3/uL Red Blood Count 4.45 4.35-5.85 10^6/uL Hemoglobin 13.7 11.5-16.0 G/DL Hematocrit 41 35-52 % Mean Corpuscular Volume 92 80-99 FL Mean Corpuscular Hemoglobin 31 25-34 PG Mean Corpuscular Hemoglobin Concent 34 32-36 G/DL Red Cell Distribution Width 13.5 10.0-14.5 % Platelet Count 203 130-400 10^3/uL Mean Platelet Volume 9.9 7.4-10.4 FL Neutrophils (%) (Auto) 75 42-75 % Lymphocytes (%) (Auto) 16 12-44 % Monocytes (%) (Auto) 9 0-12 % Eosinophils (%) (Auto) 0 0-10 % Basophils (%) (Auto) 0 0-10 % Neutrophils # (Auto) 9.3 H 1.8-7.8 X 10^3 Lymphocytes # (Auto) 2.0 1.0-4.0 X 10^3 Monocytes # (Auto) 1.2 H 0.0-1.0 X 10^3 Eosinophils # (Auto) 0.0 0.0-0.3 10^3/uL Basophils # (Auto) 0.0 0.0-0.1 10^3/uL Prothrombin Time 13.7 12.2-14.7 SEC INR Comment 1.0 0.8-1.4 Activated Partial Thromboplast Time 29 24-35 SEC Sodium Level 136 135-145 MMOL/L Potassium Level 3.9 3.6-5.0 MMOL/L Chloride Level 100 98-107 MMOL/L Carbon Dioxide Level 22 21-32 MMOL/L Anion Gap 14 5-14 MMOL/L Blood Urea Nitrogen 12 7-18 MG/DL Creatinine 0.85 0.60-1.30 MG/DL Estimat Glomerular Filtration Rate > 60 BUN/Creatinine Ratio 14 Glucose Level 111 H 70-105 MG/DL Lactic Acid Level 0.87 0.50-2.00 MMOL/L Calcium Level 9.5 8.5-10.1 MG/DL Corrected Calcium 9.3 8.5-10.1 MG/DL Total Bilirubin 0.4 0.1-1.0 MG/DL Aspartate Amino Transf (AST/SGOT) 149 H 5-34 U/L Alanine Aminotransferase (ALT/SGPT) 63 H 0-55 U/L Alkaline Phosphatase 95 40-136 U/L C-Reactive Protein High Sensitivity 1.62 H 0.00-0.50 MG/DL Total Protein 7.2 6.4-8.2 GM/DL Albumin 4.2 3.2-4.5 GM/DL Urine Opiates Screen NEGATIVE NEGATIVE Urine Oxycodone Screen NEGATIVE NEGATIVE Urine Methadone Screen NEGATIVE NEGATIVE Urine Propoxyphene Screen NEGATIVE NEGATIVE Urine Barbiturates Screen NEGATIVE NEGATIVE Ur Tricyclic Antidepressants Screen NEGATIVE NEGATIVE Urine Phencyclidine Screen NEGATIVE NEGATIVE Urine Amphetamines Screen NEGATIVE NEGATIVE Urine Methamphetamines Screen NEGATIVE NEGATIVE Urine Benzodiazepines Screen NEGATIVE NEGATIVE Urine Cocaine Screen NEGATIVE NEGATIVE Urine Cannabinoids Screen NEGATIVE NEGATIVE My Orders Orders - JAMIE KNOX MD Cbc With Automated Diff (02/19/19 23:47) Comprehensive Metabolic Panel (02/19/19 23:47) Blood Culture (02/19/19 23:47) Sputum Culture (02/19/19 23:47) Urinalysis (02/19/19 23:47) Urine Culture (02/19/19 23:47) Protime With Inr (02/19/19 23:47) Partial Thromboplastin Time (02/19/19 23:47) Acetaminophen Tablet (Tylenol Tablet) (02/20/19 00:00) Ed Iv/Invasive Line Start (02/19/19 23:47) Vital Signs Adult Sepsis Patie Q15M (02/19/19 23:47) O2 (02/19/19 23:47) Remove Rings In Anticipation O (02/19/19 23:47) Ns Iv 1000 Ml (Sodium Chloride 0.9%) (02/19/19 23:47) Lactic Acid Analyzer (02/19/19 23:47) Chest 1 View, Ap/Pa Only (02/20/19 00:01) Hs C Reactive Protein (02/20/19 00:03) Drug Screen Stat (Urine) (02/20/19 00:54) Ketorolac Injection (Toradol Injection) (02/20/19 02:15) Ct Head Wo (02/20/19 02:13) Acyclovir Capsule/Tablet (Zovirax Caps (02/20/19 03:30) Medications Given in ED Current Medications Medications Dose Ordered Sig/Sim Route Start Time Stop Time Status Last Admin Dose Admin Acetaminophen 1,000 mg ONCE PRN PO 02/20/19 00:00 02/20/19 00:03 DC 02/20/19 00:02 1,000 MG Acyclovir 800 mg ONCE ONCE PO 02/20/19 03:30 02/20/19 03:32 DC 02/20/19 05:14 800 MG Ketorolac Tromethamine 15 mg ONCE ONCE IVP 02/20/19 02:15 02/20/19 02:16 DC 02/20/19 02:54 15 MG Vital Signs/I&O 02/19/19 02/19/19 02/20/19 02/20/19 23:35 23:57 00:02 00:34 Temp 102.6 102.6 100.2 Pulse 112 Resp 14 B/P (MAP) 120/86 (97) Pulse Ox 99 O2 Delivery Room Air Room Air 02/20/19 02/20/19 00:45 05:14 Temp 100.2 Pulse 81 Resp 18 B/P (MAP) 101/65 (77) Pulse Ox 96 Capillary Refill : Less Than 3 Seconds Blood Pressure Mean: 97 Progress Note : Progress Note Patient received Tylenol and a liter of IV fluid which improved her symptoms significantly. Headache completely resolved with these measures. CT of the head was obtained due to unusual neurologic symptoms. There are no acute abnormalities identified. Symptoms progressively improved. Although her presen tation was concerning for possible mild development of Nguyen-Ge syndrome after starting Chantix, there was no progression of symptoms after several hours. Patient was offered admission for observation versus careful observation at home. Patient desired to be discharged home and commits to returning if symptoms worsen. Acyclovir was initiated as the blistering rash may be shingles. ECG Initial ECG Impression Date: Feb 19, 2019 Initial ECG Impression Time: 23:43 Initial ECG Rate: 107 Initial ECG Rhythm: S.Tach Comment Sinus tachycardia with no ST elevation or depression. Incomplete right bundle branch block. No axis deviation. Diagnostic Imaging Diagonstic Imaging: Xray Plain Films/CT/US/NM/MRI: chest Comments Chest x-ray viewed by me. Report not yet available. No acute abnormalities ap preciated. Diagonstic Imaging: CT Plain Films/CT/US/NM/MRI: head Comments CT head viewed by me and [facility] report reviewed. No acute abnormalities appreciated. Departure Impression Primary Impression: Febrile illness Additional Impressions: Vesicular rash Altered mental status Qualified Codes: R41.82 - Altered mental status, unspecified Disposition: 01 HOME, SELF-CARE Condition: Improved Departure-Patient Inst. 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 Discharge Instructions: Return to the emergency room promptly if you have worsening conditions. You may use ibuprofen and/or Tylenol (acetaminophen) for pain or fever. Use the acyclovir as prescribed. Please list she intakes as an allergy during healthcare encounters in the future. All discharge instructions reviewed with patient and/or family. Voiced understanding. Scripts Acyclovir (Acyclovir) 800 Mg Tablet 800 MG PO 5XD, #35 TAB Prov: JAMIE KNOX MD 02/20/19 Copy Copies To 1: DANIELLE JUARES JOSHUA T MD Feb 20, 2019 04:13
[2019-02-20] MEDS ORDERED: ACYC800T PO (04:53)
[2019-02-20 05:14] VITALS: BP 101/65
--- NOTE | 2019-02-20 07:24 | Diagnostic Imaging Report ---
PROCEDURE: CT head without contrast. TECHNIQUE: Multiple contiguous axial images were obtained through the brain without the use of intravenous contrast. Auto Exposure Controls were utilized during the CT exam to meet ALARA standards for radiation dose reduction. INDICATION: Headache COMPARISON: 12/26/2018 FINDINGS: Ventricles normal in size, shape and position. There is no midline shift or mass effect. There is no hemorrhage or evidence of acute ischemia. No extra-axial fluid collection is seen. The bony calvarium, paranasal sinuses and mastoids are unremarkable. IMPRESSION: No acute intracranial abnormalities. Agree with preliminary report. Dictated by: Dictated on workstation # [id number]
--- NOTE | 2019-02-20 16:06 | Diagnostic Imaging Report ---
INDICATION: Shortness of air. TIME OF EXAM: 12:06 AM COMPARISON is made with prior chest radiograph from 12/26/2018. FINDINGS: The heart size is normal. The lungs have cleared since the prior radiograph with the exception of questionable minimal infiltrate in the right base medially in the infrahilar location. No effusion or pneumothorax identified. IMPRESSION: Minimal infiltrate or atelectasis medial right base. The study is otherwise unremarkable. Dictated by: Dictated on workstation # [id number]
== END 2019-02-20 05:14 | disposition home or self-care (01) ==
LOC: EDUNIT# 23:25 → ER 23:28
DX: R21 Rash and other nonspecific skin eruption (principal); R50.9 Fever, unspecified; R41.82 Altered mental status, unspecified; F41.9 Anxiety disorder, unspecified; F43.10 Post-traumatic stress disorder, unspecified; F32.9 Major depressive disorder, single episode, unspecified; K21.9 Gastro-esophageal reflux disease without esophagitis; M79.7 Fibromyalgia; Z90.49 Acquired absence of other specified parts of digestive tract; Z90.710 Acquired absence of both cervix and uterus; Z98.890 Other specified postprocedural states; Z88.5 Allergy status to narcotic agent; Z88.0 Allergy status to penicillin; Z88.8 Allergy status to other drugs, medicaments and biological substances; Z79.52 Long term (current) use of systemic steroids; Z77.22 Contact with and (suspected) exposure to environmental tobacco smoke (acute) (chronic)
CPT/HCPCS: 36415; 70450; 71045; 80053; 81000; 83605; 85025; 85610; 85730; 86141; 87040; 87088; 93005; 96361; 96374

== ENCOUNTER 2019-02-21 11:31 | Emergency (ER) | payer MEDICARE ==
[~2019-02-21] VITALS: Ht 162.6 cm; Wt 79.4 kg
[~2019-02-21 11:31] MED LIST changes: +ACYC800T PO
[2019-02-21] MEDS ORDERED: traZODone 50 MG (DESYREL) TAB PO ONE (12:00)
--- NOTE | 2019-02-21 12:07 | ED General ---
General Chief Complaint: Respiratory Problems Stated Complaint: SOA Nursing Triage Note: PT WAS IN THIS ED TUESDAY FOR SOA AND ANXIETY. PT CO DIFFICULTY BREATHING, PAIN IN ARM, ANXIETY, BLISTERS ON EARS AND ARMS. STATES WAS UNABLE TO GET INTO HER PCP SO SHE CAME BACK TO ED. REPORTS WAS ON CHANTIX TO QUIT SMOKING AND THAT THE CHANTIX IS CAUSING THE BLISTERS. PT ALSO STATES THAT THE CHANTIX CAUSED DIFFICULTY TALKING. Nursing Sepsis Screen: No Definite Risk Source of Information: Patient Exam Limitations: No Limitations History of Present Illness Date Seen by Provider: Feb 21, 2019 Time Seen by Provider: 11:45 Initial Comments Here with generalized anxiety. She was apparently on Chantix for a few days and developed blisters on her right shoulder and now ear although resolving. She has stopped Chantix. She was seen here and started on acyclovir. She has been off her Remeron for 2 days and has not slept in 2 days. She is concerned about which meds that he should be taking and she is concerned about her anxiety and shortness of breath. Overall no new blisters and no other sequela from the Chantix. She has been on her other meds long-term. 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, altered mental status Home Medications Acyclovir 800 Mg Tablet, 800 MG PO 5XD Prescribed by: JAMIE YUNG on 02/20/19 0453 Methylprednisolone 4 Mg Tab.ds.pk, 4 MG PO UD Prescribed by: GILMA MENDEZ on 01/21/19 0040 Sertraline HCl 100 Mg Tablet, 200 MG PO DAILY, (Reported) TAKES 2 (100MG) TABLETS Simvastatin 40 Mg Tablet, 40 MG PO HS, (Reported) Sulfamethoxazole/Trimethoprim 1 Each Tablet, 1 EACH PO BID Prescribed by: GILMA MENDEZ on 01/21/19 0040 Patient Home Medication List Home Medication List Reviewed: Yes Review of Systems Review of Systems Constitutional: see HPI; No chills, No fever Respiratory: short of breath; No wheezing Cardiovascular: no symptoms reported Gastrointestinal: no symptoms reported Musculoskeletal: no symptoms reported Skin: see HPI; No change in color; other (blistered lesions to the right shoulder and right earlobe.) Psychiatric/Neurological: Anxiety; Denies Weakness Past Fbvfneg-Efxevk-Ncjwjw Hx Past Med/Social Hx: Reviewed Nursing Past Med/Soc Hx Patient Social History Alcohol Use: Denies Use Recreational Drug Use: No Smoking Status: Current Everyday Smoker Type Used: Cigarettes 2nd Hand Smoke Exposure: Yes Recent Foreign Travel: No Contact w/Someone Who Travel: No Recent Infectious Disease Expo: No Recent Hopitalizations: No Physical Abuse: No Sexual Abuse: No Mistreated: No Fear: No Immunizations Up To Date Tetanus Booster (TDap): More than 5yrs Seasonal Allergies Seasonal Allergies: No Past Medical History Surgeries: Yes (HYST/BSO; LEFT ANKLE RECONSTRUCTION) Appendectomy, Gallbladder, Hysterectomy, Oophorectomy, Orthopedic Respiratory: No Cardiac: No Neurological: No 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 Sexually Transmitted Disease: No HIV/AIDS: No Genitourinary: Yes Bladder Infection, UTI-Chronic Gastrointestinal: Yes Abdominal Hernia, Gastroesophageal Reflux Musculoskeletal: Yes (CHRONIC LEFT FOOT/ANKLE PAIN --S/P LEFT ANKLE RECONSTRUCTION) Degenerate Disk Disease, Fibromyalgia, Chronic Back Pain, Fractures Endocrine: No HEENT: No Loss of Vision: Denies Hearing Impairment: Denies Cancer: No Did You Recieve Any Treatments: No Psychosocial: Yes Sleep Difficulties, Anxiety, PTSD, Depression Integumentary: No Blood Disorders: No Adverse Reaction/Blood Tranf: No Family Medical History Reviewed Nursing Family Hx Cancer No Pertinent Family Hx Physical Exam Vital Signs Vital Signs - First Documented 02/21/19 11:36 Temp 98.3 Pulse 84 Resp 19 B/P (MAP) 141/90 (107) Pulse Ox 98 O2 Delivery Room Air Capillary Refill : Less Than 3 Seconds Height, Weight, BMI Height: 5'4.00" Weight: 175lbs. 6.4oz. 79.415358ty; 31.3 BMI Method:Stated General Appearance: WD/WN, Anxious HEENT: PERRL/EOMI, Pharynx Normal Respiratory: Lungs Clear, Normal Breath Sounds, No Accessory Muscle Use, No Respiratory Distress Cardiovascular: Regular Rate, Rhythm, No Murmur Neurologic/Psychiatric: Alert, Oriented x3 Skin: Warm/Dry, Other (blisters noted to right shoulder. Blister that has unroofed is noted on the right earlobe that appears to be healing well without infectious sequela.) Progress/Results/Core Measures Suspected Sepsis Recent Fever Within 48 Hours: No Infection Criteria Present: None New/Unexplained Altered Menta: No Sepsis Screen: No Definite Risk SIRS Temperature:98.3 Pulse: 84 Respiratory Rate: 19 Blood Pressure 141 /90 Mean: 107 Results/Orders My Orders Orders - ELAINE CASAS MD Trazodone Tablet (Desyrel Tablet) (02/21/19 12:00) Vital Signs/I&O 02/21/19 11:36 Temp 98.3 Pulse 84 Resp 19 B/P (MAP) 141/90 (107) Pulse Ox 98 O2 Delivery Room Air Capillary Refill : Less Than 3 Seconds Blood Pressure Mean: 107 Progress Note : Progress Note Seen and evaluated. Did review her meds with her and discovered that she has not been taking her Remeron at nighttime. She stopped that approximately 2 days ago and hasn't really slept since. After discussing her meds and appropriate use, patient was quite reassured and heart rate decreased and breathing returned to normal. This seemed to reduce her anxiety. We will go ahead and give a dose of trazodone now and she will restart her Remeron tonight. She was instructed to continue with her acyclovir and also no more Chantix which she verbalizes understanding. Discharged home with return precautions. Patient verbalize understanding instructions and agreement with plan. Departure Impression Primary Impression: Anxiety Disposition: 01 HOME, SELF-CARE Condition: Stable Departure-Patient Inst. Decision time for Depature: 12:07 Referrals: DANIELLE JUARES DO (PCP/Family) Primary Care Physician Patient Instructions: Anxiety, Adult (DC) Add. Discharge Instructions: All discharge instructions reviewed with patient and/or family. Voiced understanding. Restart Remeron tonight. Continue acyclovir as discussed. Follow up with your doctor in 2-3 days for recheck and further evaluation. Return for worse pain, fever, vomiting, weakness, breathing problems or other concerns as needed. ELAINE CASAS MD Feb 21, 2019 12:07
--- NOTE | 2019-02-21 12:51 | NUR ---
PT AND FAMILY MEMBER WERE NOT IN THE ROOM WHEN I ENTERED TO DISCHARGE HER.
[2019-02-21 12:53] VITALS: BP 129/78
== END 2019-02-21 12:52 | disposition home or self-care (01) ==
LOC: EDUNIT# 11:31 → ER 11:32
DX: F41.9 Anxiety disorder, unspecified (principal); K21.9 Gastro-esophageal reflux disease without esophagitis; M79.7 Fibromyalgia; F43.10 Post-traumatic stress disorder, unspecified; F32.9 Major depressive disorder, single episode, unspecified; F17.210 Nicotine dependence, cigarettes, uncomplicated; Z90.49 Acquired absence of other specified parts of digestive tract; Z90.710 Acquired absence of both cervix and uterus; Z90.722 Acquired absence of ovaries, bilateral; Z88.0 Allergy status to penicillin; Z88.5 Allergy status to narcotic agent; Z88.8 Allergy status to other drugs, medicaments and biological substances; Z79.52 Long term (current) use of systemic steroids
CPT/HCPCS: 99283

== ENCOUNTER 2019-04-08 13:18 | Emergency (ER) | payer MEDICARE, MEDICAID ==
[~2019-04-08] VITALS: Ht 162 cm; Wt 79.0 kg
[2019-04-08] MEDS ORDERED: ASPIRIN 81 MG CHEW (CHILDREN'S ASA) PO ONE (13:30)
--- NOTE | 2019-04-08 13:30 | ED Chest Pain ---
General Stated Complaint: CP Source: patient Exam Limitations: no limitations History of Present Illness Date Seen by Provider: Apr 08, 2019 Time Seen by Provider: 13:27 Initial Comments To ER with reports of chest pain. This chest pain is left-sided sharp in nature and radiates through to the back and is also sharp between her shoulder blades. Pain has been intermittent since last night, the pain lasts 5-6 minutes at a time before resolving spontaneously. She cannot identify any factors that seem to bring about this pain. No exacerbating or alleviating factors. No history of present illness. No personal or family history of heart disease. She does have high cholesterol, smokes one pack of cigarettes per day. 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, altered mental status Home Medications Acyclovir 800 Mg Tablet, 800 MG PO 5XD Prescribed by: JAMIE YUNG on 02/20/19 0453 Methylprednisolone 4 Mg Tab.ds.pk, 4 MG PO UD Prescribed by: GILMA MENDEZ on 01/21/19 0040 Sertraline HCl 100 Mg Tablet, 200 MG PO DAILY, (Reported) TAKES 2 (100MG) TABLETS Simvastatin 40 Mg Tablet, 40 MG PO HS, (Reported) Sulfamethoxazole/Trimethoprim 1 Each Tablet, 1 EACH PO BID Prescribed by: GILMA MENDEZ on 01/21/19 004 Patient Home Medication List Home Medication List Reviewed: Yes Review of Systems Review of Systems Constitutional: see HPI EENTM: No Symptoms Reported Respiratory: No Symptoms Reported Cardiovascular: See HPI, Chest Pain Gastrointestinal: See HPI Genitourinary: No Symptoms Reported Musculoskeletal: no symptoms reported Skin: no symptoms reported Psychiatric/Neurological: No Symptoms Reported Endocrine: No Symptoms Reported Hematologic/Lymphatic: No Symptoms Reported Past Iitboir-Wcaopj-Rvyywp Hx Patient Social History Type Used: Cigarettes 2nd Hand Smoke Exposure: Yes Recent Foreign Travel: No Contact w/Someone Who Travel: No Recent Hopitalizations: No Immunizations Up To Date Tetanus Booster (TDap): More than 5yrs Seasonal Allergies Seasonal Allergies: No Past Medical History Surgeries: Yes (HYST/BSO; LEFT ANKLE RECONSTRUCTION) Appendectomy, Gallbladder, Hysterectomy, Oophorectomy, Orthopedic Respiratory: No Cardiac: No Neurological: No 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 Disorders: 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 Transmitted Disease: No HIV/AIDS: No Genitourinary: Yes Bladder Infection, UTI-Chronic Gastrointestinal: Yes Abdominal Hernia, Gastroesophageal Reflux Musculoskeletal: Yes (CHRONIC LEFT FOOT/ANKLE PAIN --S/P LEFT ANKLE RECONSTRUCTION) Degenerate Disk Disease, Fibromyalgia, Chronic Back Pain, Fractures Endocrine: No HEENT: No Loss of Vision: Denies Hearing Impairment: Denies Cancer: No Did You Recieve Any Treatments: No Psychosocial: Yes Sleep Difficulties, Anxiety, PTSD, Depression Integumentary: No Blood Disorders: No Adverse Reaction/Blood Tranf: No Family Medical History Cancer No Pertinent Family Hx Physical Exam Vital Signs Vital Signs - First Documented Capillary Refill : Height, Weight, BMI Height: 5'4.00" Weight: 175lbs. 6.4oz. [id number]; 31.3 BMI Method:Stated General Appearance: No Apparent Distress, WD/WN HEENT: PERRL/EOMI, TMs Normal Neck: Full Range of Motion, Normal Inspection Respiratory: Lungs Clear, Normal Breath Sounds, No Accessory Muscle Use, No Respiratory Distress Cardiovascular: Regular Rate, Rhythm, Normal Peripheral Pulses Gastrointestinal: Normal Bowel Sounds, Non Tender, Soft Extremity: Normal Capillary Refill, Normal Inspection Neurologic/Psychiatric: Alert, Oriented x3 Skin: Normal Color, Warm/Dry Progress/Results/Core Measures Results/Orders Lab Results Laboratory Tests Test 04/08/19 13:33 04/08/19 15:30 Range/Units White Blood Count 7.6 4.3-11.0 10^3/uL Red Blood Count 4.60 4.35-5.85 10^6/uL Hemoglobin 14.1 11.5-16.0 G/DL Hematocrit 43 35-52 % Mean Corpuscular Volume 92 80-99 FL Mean Corpuscular Hemoglobin 31 25-34 PG Mean Corpuscular Hemoglobin Concent 33 32-36 G/DL Red Cell Distribution Width 13.5 10.0-14.5 % Platelet Count 178 130-400 10^3/uL Mean Platelet Volume 10.0 7.4-10.4 FL Neutrophils (%) (Auto) 70 42-75 % Lymphocytes (%) (Auto) 22 12-44 % Monocytes (%) (Auto) 6 0-12 % Eosinophils (%) (Auto) 2 0-10 % Basophils (%) (Auto) 0 0-10 % Neutrophils # (Auto) 5.4 1.8-7.8 X 10^3 Lymphocytes # (Auto) 1.7 1.0-4.0 X 10^3 Monocytes # (Auto) 0.5 0.0-1.0 X 10^3 Eosinophils # (Auto) 0.1 0.0-0.3 10^3/uL Basophils # (Auto) 0.0 0.0-0.1 10^3/uL Prothrombin Time 12.6 12.2-14.7 SEC INR Comment 0.9 0.8-1.4 Activated Partial Thromboplast Time 30 24-35 SEC Sodium Level 142 135-145 MMOL/L Potassium Level 4.1 3.6-5.0 MMOL/L Chloride Level 108 H 98-107 MMOL/L Carbon Dioxide Level 24 21-32 MMOL/L Anion Gap 10 5-14 MMOL/L Blood Urea Nitrogen 10 7-18 MG/DL Creatinine 0.82 0.60-1.30 MG/DL Estimat Glomerular Filtration Rate > 60 BUN/Creatinine Ratio 12 Glucose Level 116 H 70-105 MG/DL Calcium Level 9.4 8.5-10.1 MG/DL Corrected Calcium 9.5 8.5-10.1 MG/DL Magnesium Level 1.9 1.6-2.4 MG/DL Total Bilirubin 0.4 0.1-1.0 MG/DL Aspartate Amino Transf (AST/SGOT) 24 5-34 U/L Alanine Aminotransferase (ALT/SGPT) 17 0-55 U/L Alkaline Phosphatase 112 40-136 U/L Myoglobin 58.1 10.0-92.0 NG/ML Troponin I < 0.028 < 0.028 <0.028 NG/ML B-Type Natriuretic Peptide 293.4 H <100.0 PG/ML Total Protein 6.8 6.4-8.2 GM/DL Albumin 3.9 3.2-4.5 GM/DL My Orders Orders - HELMS,PETER J PHYSICIAN ASSISTANT PRIMARY CARE Cbc With Automated Diff (04/08/19 13:24) Magnesium (04/08/19 13:24) Chest 1 View, Ap/Pa Only (04/08/19 13:24) Ekg Tracing (04/08/19 13:24) Cardiac Profile 1 (04/08/19 13:24) Comprehensive Metabolic Panel (04/08/19 13:24) Myoglobin Serum (04/08/19 13:24) Protime With Inr (04/08/19 13:24) Partial Thromboplastin Time (04/08/19 13:24) O2 (04/08/19 13:24) Monitor-Rhythm Ecg Trace Only (04/08/19 13:24) Lipid Panel (04/09/19 06:00) Ed Iv/Invasive Line Start (04/08/19 13:24) BNP (04/08/19 13:24) Aspirin Chewable Tablet (Baby Aspirin Ch (04/08/19 13:30) Ct Angio Chest W (04/08/19 13:24) Iohexol Injection (Omnipaque 350 Mg/Ml 1 (04/08/19 14:15) Received Contrast (Hold Metformin- Contr (04/08/19 14:15) Sodium Chloride Flush (Catheter Flush Sy (04/08/19 14:15) Ns (Ivpb) (Sodium Chloride 0.9% Ivpb Bag (04/08/19 14:15) Troponin I (04/08/19 15:34) Medications Given in ED Current Medications Medications Dose Ordered Sig/Sim Route Start Time Stop Time Status Last Admin Dose Admin Aspirin 324 mg ONCE ONCE PO 04/08/19 13:30 04/08/19 13:31 DC 04/08/19 13:29 324 MG Iohexol 100 ml ONCE ONCE IV 04/08/19 14:15 04/08/19 14:16 DC 04/08/19 14:21 70 ML Sodium Chloride 10 ml NEEDED PRN IV 04/08/19 14:15 04/08/19 14:21 10 ML Sodium Chloride 100 ml ONCE ONCE IV 04/08/19 14:15 04/08/19 14:16 DC 04/08/19 14:21 80 ML Vital Signs/I&O 04/08/19 04/08/19 04/08/19 13:23 13:23 13:37 Temp 34.9 Pulse 85 Resp 18 B/P (MAP) 135/77 (96) Pulse Ox 96 98 O2 Delivery Room Air Room Air Room Air Departure Communication (Admissions) 1454-patient is pain-free. We'll repeat a troponin at 1530 Impression Primary Impression: Chest pain Qualified Codes: R07.9 - Chest pain, unspecified Disposition: HOME, SELF-CARE Condition: Stable Departure-Patient Inst. Decision time for Depature: 14:56 Referrals: DANIELLE JUARES DO (PCP/Family) Primary Care Physician Patient Instructions: Chest Pain (DC) Add. Discharge Instructions: 1. Return to ER for any concerns 2. Follow-up with your doctor this week. RIKY HELMS PHYSICIAN ASSISTANT PRIMARY CARE Apr 08, 2019 13:30
[2019-04-08 13:39] LABS: BASOPHILS % (AUTO) 0 % (0-10); EOSINOPHILS # (AUTO) 0.1 10^3/uL (0.0-0.3); EOSINOPHILS % (AUTO) 2 % (0-10); HEMATOCRIT 43 % (35-52); HEMOGLOBIN 14.1 G/DL (11.5-16.0); LYMPHOCYTES # (AUTO) 1.7 X 10^3 (1.0-4.0); LYMPHOCYTES % (AUTO) 22 % (12-44); MEAN CORPUSCULAR HEMOGLOBIN 31 PG (25-34); MEAN CORPUSCULAR HGB CONC 33 G/DL (32-36); MEAN CORPUSCULAR VOLUME 92 FL (80-99); MONOCYTES # (AUTO) 0.5 X 10^3 (0.0-1.0); MONOCYTES % (AUTO) 6 % (0-12); NEUTROPHILS # (AUTO) 5.4 X 10^3 (1.8-7.8); NEUTROPHILS % (AUTO) 70 % (42-75); PLATELET COUNT 178 10^3/uL (130-400); RED CELL DISTRIBUTION WIDTH 13.5 % (10.0-14.5); WHITE BLOOD COUNT 7.6 10^3/uL (4.3-11.0)
[2019-04-08 13:51] LABS: INR 0.9 (0.8-1.4); PROTHROMBIN TIME PATIENT 12.6 SEC (12.2-14.7)
[2019-04-08 13:59] LABS: ALANINE AMINOTRANSFERASE 17 U/L (0-55); ALBUMIN 3.9 GM/DL (3.2-4.5); ALKALINE PHOSPHATASE 112 U/L (40-136); BILIRUBIN,TOTAL 0.4 MG/DL (0.1-1.0); BUN/CREATININE RATIO 12; CALCIUM 9.4 MG/DL (8.5-10.1); CARBON DIOXIDE 24 MMOL/L (21-32); CHLORIDE 108 MMOL/L (98-107); CREATININE SERUM 0.82 MG/DL (0.60-1.30); GFR ESTIMATED > 60; GLUCOSE 116 MG/DL (70-105); MAGNESIUM 1.9 MG/DL (1.6-2.4); POTASSIUM 4.1 MMOL/L (3.6-5.0); SODIUM 142 MMOL/L (135-145); TOTAL PROTEIN 6.8 GM/DL (6.4-8.2)
[2019-04-08] MEDS ORDERED: IOHEXOL 350 MG/ML 100 ML (OMNIPAQUE 350) VIAL IV ONE (14:15)
[2019-04-08] MEDS ORDERED: CATHETER FLUSH 10 ML SYR IV PRN (14:15)
[2019-04-08] MEDS ORDERED: HOLD METFORMIN - RECEIVED CONTRAST 20 ML VIAL IV SCH (14:15)
[2019-04-08] MEDS ORDERED: NS 100 ML (IVPB) BAG IV ONE (14:15)
--- NOTE | 2019-04-08 14:19 | Diagnostic Imaging Report ---
Patient History: Chest pain. Technique: Single frontal view of the chest Comparison: 02/20/2019 FINDINGS: The lung volumes are large. There is eventration of the diaphragm. No focal consolidation is seen. No large pleural effusion or pneumothorax is seen. The cardiomediastinal silhouette is normal in size and contour. No acute osseous abnormality is seen. IMPRESSION: Large lung volumes with no acute pulmonary abnormality seen. Dictated by: Dictated on workstation # [id number]
--- NOTE | 2019-04-08 14:39 | Diagnostic Imaging Report ---
PROCEDURE: CT angiography of the chest with contrast. TECHNIQUE: Multiple contiguous axial images were obtained through the chest after uneventful bolus administration of intravenous contrast. 3D reconstructed CTA MIP acquisitions were also performed. Auto Exposure Controls were utilized during the CT exam to meet ALARA standards for radiation dose reduction. INDICATION: Chest pain. FINDINGS: No comparison available. There is no pulmonary embolism. Heart size is normal. No pericardial effusion. Aorta is normal in caliber. No axillary, supraclavicular, or mediastinal lymphadenopathy. Upper abdomen is unremarkable. The lungs are clear without edema or pneumonia. No pleural effusion or pneumothorax. No suspicious nodules. Calcified nodule is seen in the left lung base. Tanya-fissural lymph node is seen along the major fissure on the right. There are no suspicious osseous lesions. IMPRESSION: 1. No pulmonary embolism. 2. Clear lungs. Dictated by: Dictated on workstation # [id number]
[2019-04-08 16:14] VITALS: BP 136/78
== END 2019-04-08 16:15 | disposition home or self-care (01) ==
LOC: EDUNIT# 13:18 → ER 13:19
DX: R07.9 Chest pain, unspecified (principal); E78.00 Pure hypercholesterolemia, unspecified; K21.9 Gastro-esophageal reflux disease without esophagitis; M79.7 Fibromyalgia; F41.9 Anxiety disorder, unspecified; F43.10 Post-traumatic stress disorder, unspecified; F32.9 Major depressive disorder, single episode, unspecified; F17.210 Nicotine dependence, cigarettes, uncomplicated; Z88.1 Allergy status to other antibiotic agents; Z88.5 Allergy status to narcotic agent; Z88.8 Allergy status to other drugs, medicaments and biological substances; Z90.49 Acquired absence of other specified parts of digestive tract; Z90.710 Acquired absence of both cervix and uterus; Z87.440 Personal history of urinary (tract) infections
CPT/HCPCS: 36415; 71045; 71275; 80053; 83735; 83874; 83880; 84484; 85025; 85610; 85730; 93005; 93041

== ENCOUNTER 2019-06-06 17:16 | Emergency (ER) | payer MEDICARE, MEDICAID ==
[~2019-06-06] VITALS: Ht 162 cm; Wt 79.0 kg
[2019-06-06] MEDS ORDERED: ASPIRIN 81 MG CHEW (CHILDREN'S ASA) PO ONE (17:45)
[2019-06-06] MEDS ORDERED: LORazepam INJ 2 MG/ML (ATIVAN) VIAL IVP PRN (17:45)
[2019-06-06 17:53] LABS: BASOPHILS % (AUTO) 0 % (0-10); EOSINOPHILS # (AUTO) 0.3 10^3/uL (0.0-0.3); EOSINOPHILS % (AUTO) 4 % (0-10); HEMATOCRIT 44 % (35-52); HEMOGLOBIN 14.7 G/DL (11.5-16.0); LYMPHOCYTES # (AUTO) 3.9 X 10^3 (1.0-4.0); LYMPHOCYTES % (AUTO) 47 % (12-44); MEAN CORPUSCULAR HEMOGLOBIN 31 PG (25-34); MEAN CORPUSCULAR HGB CONC 34 G/DL (32-36); MEAN CORPUSCULAR VOLUME 91 FL (80-99); MEAN PLATELET VOLUME 10.4 FL (7.4-10.4); MONOCYTES # (AUTO) 0.6 X 10^3 (0.0-1.0); MONOCYTES % (AUTO) 7 % (0-12); NEUTROPHILS # (AUTO) 3.5 X 10^3 (1.8-7.8); NEUTROPHILS % (AUTO) 43 % (42-75); PLATELET COUNT 182 10^3/uL (130-400); WHITE BLOOD COUNT 8.3 10^3/uL (4.3-11.0)
[2019-06-06 18:00] LABS: FIBRIN DEGRADATION PRODUCTS 0.36 UG/ML (0.00-0.49); INR 0.9 (0.8-1.4); PROTHROMBIN TIME PATIENT 12.3 SEC (12.2-14.7)
[2019-06-06 18:08] LABS: ALANINE AMINOTRANSFERASE 19 U/L (0-55); ALBUMIN 4.3 GM/DL (3.2-4.5); ALKALINE PHOSPHATASE 129 U/L (40-136); BILIRUBIN,TOTAL 0.2 MG/DL (0.1-1.0); BUN/CREATININE RATIO 10; CALCIUM 9.3 MG/DL (8.5-10.1); CARBON DIOXIDE 27 MMOL/L (21-32); CHLORIDE 104 MMOL/L (98-107); CREATININE SERUM 0.92 MG/DL (0.60-1.30); GFR ESTIMATED > 60; GLUCOSE 109 MG/DL (70-105); LIPASE 10 U/L (8-78); MAGNESIUM 1.9 MG/DL (1.6-2.4); POTASSIUM 3.6 MMOL/L (3.6-5.0); SODIUM 140 MMOL/L (135-145)
--- NOTE | 2019-06-06 18:25 | ED Cardiac General ---
History of Present Illness General Chief Complaint: Cardiac/General Problems Stated Complaint: BACK PAIN,HEART RACING Nursing Triage Note: PT TO ROOM 6 PT CO OF HEART RACING AND PAIN IN UPPER BACK 5/10 STARTED APPROX 30MIN AGO Source: patient Exam Limitations: no limitations History of Present Illness Date Seen by Provider: Jun 06, 2019 Time Seen by Provider: 18:23 Initial Comments To ER with palpitations and pain in her upper back that began about 30 minutes ago. She feels very anxious. She is on Suboxone. She does have a history of anxiety. 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, altered mental status Home Medications Acyclovir 800 Mg Tablet, 800 MG PO 5XD Prescribed by: JAMIE YUNG on 02/20/19 0453 Methylprednisolone 4 Mg Tab.ds.pk, 4 MG PO UD Prescribed by: GILMA MENDEZ on 01/21/19 0040 Sertraline HCl 100 Mg Tablet, 200 MG PO DAILY, (Reported) TAKES 2 (100MG) TABLETS Simvastatin 40 Mg Tablet, 40 MG PO HS, (Reported) Sulfamethoxazole/Trimethoprim 1 Each Tablet, 1 EACH PO BID Prescribed by: GILMA MENDEZ on 01/21/19 0040 Patient Home Medication List Home Medication List Reviewed: Yes Review of Systems Review of Systems Constitutional: see HPI EENTM: No Symptoms Reported Respiratory: No Symptoms Reported Cardiovascular: See HPI, Palpitations Gastrointestinal: No Symptoms Reported Genitourinary: No Symptoms Reported Musculoskeletal: no symptoms reported Skin: no symptoms reported Psychiatric/Neurological: No Symptoms Reported Endocrine: No Symptoms Reported Past Jbtzlfh-Udolji-Pzgjle Hx Patient Social History Alcohol Use: Denies Use Recreational Drug Use: Yes Drug of Choice: HAS HX OF LORATAB ABUSE Smoking Status: Current Everyday Smoker Type Used: Cigarettes 2nd Hand Smoke Exposure: Yes Recent Foreign Travel: No Contact w/Someone Who Travel: No Recent Infectious Disease Expo: No Recent Hopitalizations: No Immunizations Up To Date Tetanus Booster (TDap): More than 5yrs Seasonal Allergies Seasonal Allergies: No Past Medical History Surgeries: Yes (HYST/BSO; LEFT ANKLE RECONSTRUCTION) Appendectomy, Gallbladder, Hysterectomy, Oophorectomy, Orthopedic Respiratory: No Cardiac: No Neurological: No 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 Sexually Transmitted Disease: No HIV/AIDS: No Genitourinary: Yes Bladder Infection, UTI-Chronic Gastrointestinal: Yes Abdominal Hernia, Gastroesophageal Reflux Musculoskeletal: Yes (CHRONIC LEFT FOOT/ANKLE PAIN --S/P LEFT ANKLE RECONSTRUCTION) Degenerate Disk Disease, Fibromyalgia, Chronic Back Pain, Fractures Endocrine: No HEENT: No Loss of Vision: Denies Hearing Impairment: Denies Cancer: No Did You Recieve Any Treatments: No Psychosocial: Yes Sleep Difficulties, Anxiety, PTSD, Depression Integumentary: No Blood Disorders: No Adverse Reaction/Blood Tranf: No Family Medical History Cancer No Pertinent Family Hx Physical Exam Vital Signs Vital Signs - First Documented 06/06/19 17:20 Temp 36.7 Pulse 100 Resp 34 B/P (MAP) 139/84 (102) Pulse Ox 99 Capillary Refill : Less Than 3 Seconds Height, Weight, BMI Height: 5'4.00" Weight: 175lbs. 6.4oz. [id number]; 30.00 BMI Method:Stated General Appearance: No Apparent Distress, WD/WN, Anxious Neck: Full Range of Motion, Normal Inspection Respiratory: Normal Breath Sounds, No Accessory Muscle Use, No Respiratory Distress Cardiovascular: Normal Peripheral Pulses, Tachycardia Gastrointestinal: Normal Bowel Sounds, Non Tender, Soft Extremity: Normal Capillary Refill, Normal Inspection Neurologic/Psychiatric: Alert, Oriented x3 Skin: Normal Color, Warm/Dry Progress/Results/Core Measures Results/Orders Lab Results Laboratory Tests Test 06/06/19 17:28 06/06/19 20:01 Range/Units White Blood Count 8.3 4.3-11.0 10^3/uL Red Blood Count 4.79 4.35-5.85 10^6/uL Hemoglobin 14.7 11.5-16.0 G/DL Hematocrit 44 35-52 % Mean Corpuscular Volume 91 80-99 FL Mean Corpuscular Hemoglobin 31 25-34 PG Mean Corpuscular Hemoglobin Concent 34 32-36 G/DL Red Cell Distribution Width 13.0 10.0-14.5 % Platelet Count 182 130-400 10^3/uL Mean Platelet Volume 10.4 7.4-10.4 FL Neutrophils (%) (Auto) 43 42-75 % Lymphocytes (%) (Auto) 47 H 12-44 % Monocytes (%) (Auto) 7 0-12 % Eosinophils (%) (Auto) 4 0-10 % Basophils (%) (Auto) 0 0-10 % Neutrophils # (Auto) 3.5 1.8-7.8 X 10^3 Lymphocytes # (Auto) 3.9 1.0-4.0 X 10^3 Monocytes # (Auto) 0.6 0.0-1.0 X 10^3 Eosinophils # (Auto) 0.3 0.0-0.3 10^3/uL Basophils # (Auto) 0.0 0.0-0.1 10^3/uL Prothrombin Time 12.3 12.2-14.7 SEC INR Comment 0.9 0.8-1.4 Activated Partial Thromboplast Time 30 24-35 SEC D-Dimer 0.36 0.00-0.49 UG/ML Sodium Level 140 135-145 MMOL/L Potassium Level 3.6 3.6-5.0 MMOL/L Chloride Level 104 98-107 MMOL/L Carbon Dioxide Level 27 21-32 MMOL/L Anion Gap 9 5-14 MMOL/L Blood Urea Nitrogen 9 7-18 MG/DL Creatinine 0.92 0.60-1.30 MG/DL Estimat Glomerular Filtration Rate > 60 BUN/Creatinine Ratio 10 Glucose Level 109 H 70-105 MG/DL Calcium Level 9.3 8.5-10.1 MG/DL Corrected Calcium 9.1 8.5-10.1 MG/DL Magnesium Level 1.9 1.6-2.4 MG/DL Total Bilirubin 0.2 0.1-1.0 MG/DL Aspartate Amino Transf (AST/SGOT) 20 5-34 U/L Alanine Aminotransferase (ALT/SGPT) 19 0-55 U/L Alkaline Phosphatase 129 40-136 U/L Myoglobin 27.5 10.0-92.0 NG/ML Troponin I < 0.028 <0.028 NG/ML B-Type Natriuretic Peptide 17.6 <100.0 PG/ML Total Protein 7.0 6.4-8.2 GM/DL Albumin 4.3 3.2-4.5 GM/DL Lipase 10 8-78 U/L My Orders Orders - RIKY HELMS APRN Cbc With Automated Diff (06/06/19 17:43) Magnesium (06/06/19 17:43) Chest 1 View, Ap/Pa Only (06/06/19 17:43) Ekg Tracing (06/06/19 17:43) Cardiac Profile 1 (06/06/19:43) Comprehensive Metabolic Panel (06/06/19:43) Myoglobin Serum (06/06/19:43) Protime With Inr (06/06/19:) Partial Thromboplastin Time (06/06/19:) O2 (06/06/19:) Monitor-Rhythm Ecg Trace Only (06/06/19:43) Lipid Panel (06/07/19 06:00) Ed Iv/Invasive Line Start (06/06/19:43) Lipase (06/06/19:43) BNP (06/06/19:43) Aspirin Chewable Tablet (Baby Aspirin Ch (06/06/19 17:45) Lorazepam Injection (Ativan Injection) (06/06/19 17:45) Fibrin Degradation Products (06/06/19 17:28) Troponin I (06/06/19 19:28) Antacid Suspension (Mylanta Suspension (06/06/19 19:00) Lidocaine 2% Viscous 15 Ml (Xylocaine Vi (06/06/19 19:00) Medications Given in ED Current Medications Medications Dose Ordered Sig/Sim Route Start Time Stop Time Status Last Admin Dose Admin Al Hydrox/Mg Hydrox/Simethicone 30 ml ONCE ONCE PO 06/06/19 19:00 06/06/19 19:01 DC 06/06/19 19:09 30 ML Aspirin 324 mg ONCE ONCE PO 06/06/19 17:45 06/06/19 17:46 DC 06/06/19 18:08 324 MG Lidocaine HCl 15 ml ONCE ONCE PO 06/06/19 19:00 06/06/19 19:01 DC 06/06/19 19:09 15 ML Lorazepam 1 mg ONCE PRN IVP 06/06/19 17:45 06/06/19 18:08 1 MG Vital Signs/I&O 06/06/19 17:20 Temp 36.7 Pulse 100 Resp 34 B/P (MAP) 139/84 (102) Pulse Ox 99 Blood Pressure Mean: 102 POS Departure Impression Primary Impression: Anxiety Additional Impression: Palpitations Disposition: 01 HOME, SELF-CARE Condition: Stable Departure-Patient Inst. Decision time for Depature: 20:22 Referrals: DANIELLE JUARES DO (PCP/Family) Primary Care Physician Patient Instructions: Anxiety, Adult (DC), Palpitations Add. Discharge Instructions: 1. Return to ER for any concerns 2. Follow-up with your doctor next week All discharge instructions reviewed with patient and/or family. Voiced understanding. RIKY HELMS APRN Jun 06, 2019 18:24 POS
--- NOTE | 2019-06-06 18:46 | Diagnostic Imaging Report ---
INDICATION: Tachycardia. EXAMINATION: Portable chest at 6:11 p.m. FINDINGS: Heart size and pulmonary vascularity are normal. Lungs are clear. There are no effusions or pneumothoraces. IMPRESSION: Negative chest. Dictated by: Dictated on workstation # [id number]
[2019-06-06] MEDS ORDERED: LIDOCAINE 2% VISCOUS 15 ML UDC PO ONE (19:00)
[2019-06-06] MEDS ORDERED: ANTACID SUSP 30 ML UDC (MYLANTA) PO ONE (19:00)
[2019-06-06 20:50] VITALS: BP 130/80
== END 2019-06-06 20:50 | disposition home or self-care (01) ==
LOC: EDUNIT# 17:16 → ER 17:16
DX: F41.9 Anxiety disorder, unspecified (principal); K21.9 Gastro-esophageal reflux disease without esophagitis; M79.7 Fibromyalgia; F43.10 Post-traumatic stress disorder, unspecified; F32.9 Major depressive disorder, single episode, unspecified; F17.210 Nicotine dependence, cigarettes, uncomplicated; Z90.710 Acquired absence of both cervix and uterus; Z90.49 Acquired absence of other specified parts of digestive tract; Z90.722 Acquired absence of ovaries, bilateral; Z87.440 Personal history of urinary (tract) infections; Z88.0 Allergy status to penicillin; Z88.5 Allergy status to narcotic agent; Z88.8 Allergy status to other drugs, medicaments and biological substances; Z79.52 Long term (current) use of systemic steroids
CPT/HCPCS: 36415; 71045; 80053; 83690; 83735; 83874; 83880; 84484; 85025; 85379; 85610; 85730; 93005; 93041

== ENCOUNTER 2019-06-08 13:43 | Emergency (ER) | payer MEDICARE, MEDICAID ==
[~2019-06-08] VITALS: Ht 162.6 cm; Wt 77.1 kg
[2019-06-08] MEDS ORDERED: ASPIRIN 81 MG CHEW (CHILDREN'S ASA) PO ONE (13:45)
[2019-06-08] MEDS ORDERED: LORazepam INJ 2 MG/ML (ATIVAN) VIAL IVP PRN (13:45)
--- NOTE | 2019-06-08 13:56 | ED Chest Pain ---
General Stated Complaint: CHEST PAIN Source: patient Exam Limitations: no limitations History of Present Illness Date Seen by Provider: Jun 08, 2019 Time Seen by Provider: 13:54 Initial Comments To ER with reports of chest pain and palpitations and anxiety intermittently since 6 AM this morning, she was seen here 2 days ago for similar symptoms, symptoms subsided after administration of lorazepam. 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, altered mental status Home Medications Acyclovir 800 Mg Tablet, 800 MG PO 5XD Prescribed by: JAMIE YUNG on 02/20/19 0453 Methylprednisolone 4 Mg Tab.ds.pk, 4 MG PO UD Prescribed by: GILMA MENDEZ on 01/21/19 0040 Sertraline HCl 100 Mg Tablet, 200 MG PO DAILY, (Reported) TAKES 2 (100MG) TABLETS Simvastatin 40 Mg Tablet, 40 MG PO HS, (Reported) Sulfamethoxazole/Trimethoprim 1 Each Tablet, 1 EACH PO BID Prescribed by: GILMA MENDEZ on 01/21/19 0040 Patient Home Medication List Home Medication List Reviewed: Yes Review of Systems Review of Systems Constitutional: see HPI EENTM: No Symptoms Reported Respiratory: No Symptoms Reported Cardiovascular: See HPI, Chest Pain, Palpitations Gastrointestinal: See HPI Genitourinary: No Symptoms Reported Musculoskeletal: no symptoms reported Skin: no symptoms reported Psychiatric/Neurological: See HPI, Anxiety Endocrine: No Symptoms Reported Past Gvkimwj-Uvvtac-Zuuzhm Hx Patient Social History Drug of Choice: HAS HX OF LORATAB ABUSE Type Used: Cigarettes 2nd Hand Smoke Exposure: Yes Recent Hopitalizations: No Immunizations Up To Date Tetanus Booster (TDap): More than 5yrs Seasonal Allergies Seasonal Allergies: No Past Medical History Surgeries: Yes (HYST/BSO; LEFT ANKLE RECONSTRUCTION) Appendectomy, Gallbladder, Hysterectomy, Oophorectomy, Orthopedic Respiratory: No Cardiac: No Neurological: No 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 Sexually Transmitted Disease: No HIV/AIDS: No Genitourinary: Yes Bladder Infection, UTI-Chronic Gastrointestinal: Yes Abdominal Hernia, Gastroesophageal Reflux Musculoskeletal: Yes (CHRONIC LEFT FOOT/ANKLE PAIN --S/P LEFT ANKLE RECONSTRUCTION) Degenerate Disk Disease, Fibromyalgia, Chronic Back Pain, Fractures Endocrine: No HEENT: No Loss of Vision: Denies Hearing Impairment: Denies Cancer: No Did You Recieve Any Treatments: No Psychosocial: Yes Sleep Difficulties, Anxiety, PTSD, Depression Integumentary: No Blood Disorders: No Adverse Reaction/Blood Tranf: No Family Medical History Cancer No Pertinent Family Hx Physical Exam Vital Signs Vital Signs - First Documented 06/08/19 13:44 Temp 36.7 Pulse 75 Resp 19 B/P (MAP) 135/78 (97) Pulse Ox 96 O2 Delivery Room Air Capillary Refill : Height, Weight, BMI Height: 5'4.00" Weight: 175lbs. 6.4oz. 79.611451fp; 30.00 BMI Method:Stated General Appearance: No Apparent Distress, WD/WN, Anxious Neck: Full Range of Motion, Normal Inspection Respiratory: Normal Breath Sounds, No Accessory Muscle Use, No Respiratory Distress Cardiovascular: Regular Rate, Rhythm, Normal Peripheral Pulses Gastrointestinal: Normal Bowel Sounds, Non Tender, Soft Extremity: Normal Capillary Refill, Normal Inspection Neurologic/Psychiatric: Alert, Oriented x3 Skin: Normal Color, Warm/Dry Progress/Results/Core Measures Results/Orders Lab Results Laboratory Tests Test 06/08/19 13:48 06/08/19 14:32 Range/Units White Blood Count 7.5 4.3-11.0 10^3/uL Red Blood Count 4.90 4.35-5.85 10^6/uL Hemoglobin 14.9 11.5-16.0 G/DL Hematocrit 46 35-52 % Mean Corpuscular Volume 93 80-99 FL Mean Corpuscular Hemoglobin 30 25-34 PG Mean Corpuscular Hemoglobin Concent 33 32-36 G/DL Red Cell Distribution Width 13.2 10.0-14.5 % Platelet Count 172 130-400 10^3/uL Mean Platelet Volume 10.6 H 7.4-10.4 FL Neutrophils (%) (Auto) 66 42-75 % Lymphocytes (%) (Auto) 28 12-44 % Monocytes (%) (Auto) 5 0-12 % Eosinophils (%) (Auto) 1 0-10 % Basophils (%) (Auto) 0 0-10 % Neutrophils # (Auto) 4.9 1.8-7.8 X 10^3 Lymphocytes # (Auto) 2.1 1.0-4.0 X 10^3 Monocytes # (Auto) 0.4 0.0-1.0 X 10^3 Eosinophils # (Auto) 0.1 0.0-0.3 10^3/uL Basophils # (Auto) 0.0 0.0-0.1 10^3/uL Sodium Level 144 135-145 MMOL/L Potassium Level 3.9 3.6-5.0 MMOL/L Chloride Level 108 H 98-107 MMOL/L Carbon Dioxide Level 25 21-32 MMOL/L Anion Gap 11 5-14 MMOL/L Blood Urea Nitrogen 13 7-18 MG/DL Creatinine 0.87 0.60-1.30 MG/DL Estimat Glomerular Filtration Rate > 60 BUN/Creatinine Ratio 15 Glucose Level 113 H 70-105 MG/DL Calcium Level 9.7 8.5-10.1 MG/DL Corrected Calcium 9.3 8.5-10.1 MG/DL Magnesium Level 1.8 1.6-2.4 MG/DL Total Bilirubin 0.3 0.1-1.0 MG/DL Aspartate Amino Transf (AST/SGOT) 18 5-34 U/L Alanine Aminotransferase (ALT/SGPT) 19 0-55 U/L Alkaline Phosphatase 120 40-136 U/L Myoglobin 36.6 10.0-92.0 NG/ML Troponin I < 0.028 <0.028 NG/ML Total Protein 7.5 6.4-8.2 GM/DL Albumin 4.5 3.2-4.5 GM/DL Prothrombin Time 13.0 12.2-14.7 SEC INR Comment 1.0 0.8-1.4 Activated Partial Thromboplast Time 25 24-35 SEC D-Dimer 0.39 0.00-0.49 UG/ML My Orders Orders - RIKY HELMS COPY ROOM TECHNICIAN Cbc With Automated Diff (06/08/19 13:45) Magnesium (06/08/19 13:45) Chest 1 View, Ap/Pa Only (06/08/19 13:45) Cardiac Profile 1 (06/08/19 13:45) Comprehensive Metabolic Panel (06/08/19 13:45) Myoglobin Serum (06/08/19 13:45) Protime With Inr (06/08/19 13:45) Partial Thromboplastin Time (06/08/19 13:45) O2 (06/08/19 13:45) Monitor-Rhythm Ecg Trace Only (06/08/19 13:45) Lipid Panel (06/09/19 06:00) Ed Iv/Invasive Line Start (06/08/19 13:45) Fibrin Degradation Products (06/08/19 13:45) Aspirin Chewable Tablet (Baby Aspirin Ch (06/08/19 13:45) Lorazepam Injection (Ativan Injection) (06/08/19 13:45) Medications Given in ED Current Medications Medications Dose Ordered Sig/Sim Route Start Time Stop Time Status Last Admin Dose Admin Aspirin 324 mg ONCE ONCE PO 06/08/19 13:45 06/08/19 13:47 DC 06/08/19 14:01 324 MG Lorazepam 1 mg ONCE PRN IVP 06/08/19 13:45 06/08/19 14:01 1 MG Vital Signs/I&O 06/08/19 06/08/19 13:44 13:44 Temp 36.7 Pulse 75 Resp 19 B/P (MAP) 135/78 (97) Pulse Ox 96 O2 Delivery Room Air Room Air Diagnostic Imaging Diagonstic Imaging: Xray Plain Films/CT/US/NM/MRI: chest Comments NAME: DELON ZELAYA MED REC#: [id number] PT STATUS: REG ER : 1970 PHYSICIAN: RIKY HELMS COPY ROOM TECHNICIAN ADMIT DATE: 06/08/19/ER Draft POSDate of Exam:06/08/19 CHEST 1 VIEW, AP/PA ONLY Clinical indications: Patient complains of intermittent chest discomfort x3 days. Exam: Portable chest x-ray upright view. Comparisons: Chest x-ray dated 06/06/2019. Findings: Lungs/pleura: Stable increased lung markings throughout both lung bases. There is no interval lung infiltrate. Lungs are otherwise clear. There is no pneumothorax. There is no pleural effusion. Mediastinum: Unremarkable. Pulmonary vasculature: Unremarkable. Heart: Unremarkable. Bones/extrathoracic soft tissue: Unremarkable. Impression: Stable chest x-ray exam with no interval radiographic evidence of acute cardiopulmonary process. Dictated on workstation # [id number] Dict: 06/08/19 1439 Trans: 06/08/19 1444 [id number] [id number] Interpreted by: REGINA MILLS MD Electronically signed by: Departure Impression Primary Impression: Anxiety Additional Impression: Chest pain Qualified Codes: R07.9 - Chest pain, unspecified Disposition: HOME, SELF-CARE Condition: Stable Departure-Patient Inst. Decision time for Depature: 15:26 Referrals: DANIELLE JUARES DO (PCP/Family) Primary Care Physician Patient Instructions: Anxiety, Adult (DC), Chest Pain Add. Discharge Instructions: 1. Return to ER for any worsening or recurrent symptoms. Follow-up with one of the cardiologists listed during your last visit. Medication as directed. Scripts Hydroxyzine Pamoate (Vistaril) 50 Mg Capsule 50 MG PO Q6H PRN for PAIN-MODERATE (5-7), #14 CAP Prov: RIKY HELMS COPY ROOM TECHNICIAN 06/08/19 RIKY HELMS COPY ROOM TECHNICIAN Jun 08, 2019 13:56 POS
[2019-06-08 14:03] LABS: BASOPHILS % (AUTO) 0 % (0-10); EOSINOPHILS # (AUTO) 0.1 10^3/uL (0.0-0.3); EOSINOPHILS % (AUTO) 1 % (0-10); HEMATOCRIT 46 % (35-52); HEMOGLOBIN 14.9 G/DL (11.5-16.0); LYMPHOCYTES # (AUTO) 2.1 X 10^3 (1.0-4.0); LYMPHOCYTES % (AUTO) 28 % (12-44); MEAN CORPUSCULAR HEMOGLOBIN 30 PG (25-34); MEAN CORPUSCULAR HGB CONC 33 G/DL (32-36); MEAN CORPUSCULAR VOLUME 93 FL (80-99); MEAN PLATELET VOLUME 10.6 FL (7.4-10.4); MONOCYTES # (AUTO) 0.4 X 10^3 (0.0-1.0); MONOCYTES % (AUTO) 5 % (0-12); NEUTROPHILS # (AUTO) 4.9 X 10^3 (1.8-7.8); NEUTROPHILS % (AUTO) 66 % (42-75); PLATELET COUNT 172 10^3/uL (130-400); RED CELL DISTRIBUTION WIDTH 13.2 % (10.0-14.5); WHITE BLOOD COUNT 7.5 10^3/uL (4.3-11.0)
[2019-06-08 14:20] LABS: ALANINE AMINOTRANSFERASE 19 U/L (0-55); ALBUMIN 4.5 GM/DL (3.2-4.5); ALKALINE PHOSPHATASE 120 U/L (40-136); BILIRUBIN,TOTAL 0.3 MG/DL (0.1-1.0); BUN/CREATININE RATIO 15; CALCIUM 9.7 MG/DL (8.5-10.1); CARBON DIOXIDE 25 MMOL/L (21-32); CHLORIDE 108 MMOL/L (98-107); CREATININE SERUM 0.87 MG/DL (0.60-1.30); GFR ESTIMATED > 60; GLUCOSE 113 MG/DL (70-105); MAGNESIUM 1.8 MG/DL (1.6-2.4); POTASSIUM 3.9 MMOL/L (3.6-5.0); SODIUM 144 MMOL/L (135-145); TOTAL PROTEIN 7.5 GM/DL (6.4-8.2)
--- NOTE | 2019-06-08 14:44 | Diagnostic Imaging Report ---
Clinical indications: Patient complains of intermittent chest discomfort x3 days. Exam: Portable chest x-ray upright view. Comparisons: Chest x-ray dated 06/06/2019. Findings: Lungs/pleura: Stable increased lung markings throughout both lung bases. There is no interval lung infiltrate. Lungs are otherwise clear. There is no pneumothorax. There is no pleural effusion. Mediastinum: Unremarkable. Pulmonary vasculature: Unremarkable. Heart: Unremarkable. Bones/extrathoracic soft tissue: Unremarkable. Impression: Stable chest x-ray exam with no interval radiographic evidence of acute cardiopulmonary process. Dictated by: Dictated on workstation # [id number]
[2019-06-08] MEDS ORDERED: HYDR50CA PO (15:27)
[2019-06-08 15:33] VITALS: BP 114/65
== END 2019-06-08 15:34 | disposition home or self-care (01) ==
LOC: EDUNIT# 13:43 → ER 13:44
DX: F41.9 Anxiety disorder, unspecified (principal); R07.9 Chest pain, unspecified; K21.9 Gastro-esophageal reflux disease without esophagitis; M79.7 Fibromyalgia; F43.10 Post-traumatic stress disorder, unspecified; F32.9 Major depressive disorder, single episode, unspecified; Z88.0 Allergy status to penicillin; Z88.5 Allergy status to narcotic agent; Z88.8 Allergy status to other drugs, medicaments and biological substances; Z79.52 Long term (current) use of systemic steroids; Z77.22 Contact with and (suspected) exposure to environmental tobacco smoke (acute) (chronic); Z90.49 Acquired absence of other specified parts of digestive tract; Z90.710 Acquired absence of both cervix and uterus; Z87.440 Personal history of urinary (tract) infections; Z90.722 Acquired absence of ovaries, bilateral
CPT/HCPCS: 36415; 71045; 80053; 83735; 83874; 84484; 85025; 85379; 85610; 85730; 93005; 93041; 96374

== ENCOUNTER 2019-10-24 14:12 | Emergency (ER) | payer MEDICARE, MEDICAID ==
[~2019-10-24] VITALS: Ht 162 cm; Wt 81.6 kg
[~2019-10-24 14:12] MED LIST changes: +ACHYD1T PO; -HYDR-3820 PO; +HYDR50CA PO; +OMEP40CA27 PO; -OMEP40CA36 PO; +SIMV40TA25 PO; -SIMV40TA4 PO
[2019-10-24 15:21] LABS: BILIRUBIN,URINE NEGATIVE (NEGATIVE); CLARITY,URINE CLEAR; COLOR,URINE YELLOW; GLUCOSE, URINE (UA) NEGATIVE (NEGATIVE); KETONES,URINE NEGATIVE (NEGATIVE); LEUKOCYTE ESTERASE ,URINE NEGATIVE (NEGATIVE); NITRITE,URINE NEGATIVE (NEGATIVE); PROTEIN,URINE NEGATIVE (NEGATIVE)
[2019-10-24 15:23] LABS: BASOPHILS % (AUTO) 1 % (0-10); EOSINOPHILS # (AUTO) 0.2 10^3/uL (0.0-0.3); EOSINOPHILS % (AUTO) 4 % (0-10); HEMATOCRIT 42 % (35-52); HEMOGLOBIN 13.4 G/DL (11.5-16.0); LYMPHOCYTES # (AUTO) 1.5 X 10^3 (1.0-4.0); LYMPHOCYTES % (AUTO) 25 % (12-44); MEAN CORPUSCULAR HEMOGLOBIN 30 PG (25-34); MEAN CORPUSCULAR HGB CONC 32 G/DL (32-36); MEAN CORPUSCULAR VOLUME 95 FL (80-99); MEAN PLATELET VOLUME 10.4 FL (7.4-10.4); MONOCYTES # (AUTO) 0.4 X 10^3 (0.0-1.0); MONOCYTES % (AUTO) 6 % (0-12); NEUTROPHILS # (AUTO) 3.7 X 10^3 (1.8-7.8); NEUTROPHILS % (AUTO) 64 % (42-75); PLATELET COUNT 183 10^3/uL (130-400); RED CELL DISTRIBUTION WIDTH 13.7 % (10.0-14.5); WHITE BLOOD COUNT 5.8 10^3/uL (4.3-11.0)
[2019-10-24 15:34] LABS: ALANINE AMINOTRANSFERASE 19 U/L (0-55); ALBUMIN 3.8 GM/DL (3.2-4.5); ALKALINE PHOSPHATASE 108 U/L (40-136); BILIRUBIN,TOTAL 0.3 MG/DL (0.1-1.0); BUN/CREATININE RATIO 15; CALCIUM 9.1 MG/DL (8.5-10.1); CARBON DIOXIDE 25 MMOL/L (21-32); CHLORIDE 108 MMOL/L (98-107); CREATININE SERUM 0.78 MG/DL (0.60-1.30); GFR ESTIMATED > 60; GLUCOSE 89 MG/DL (70-105); SODIUM 144 MMOL/L (135-145); TOTAL PROTEIN 7.1 GM/DL (6.4-8.2)
[2019-10-24 15:36] LABS: AMORPHOUS SEDIMENT,UR FEW AMOR PHOSPHATE /LPF; BACTERIA,URINE FEW /HPF
[2019-10-24 15:54] LABS: FREE T4 (FREE THYROXINE) 0.85 NG/DL (0.70-1.48)
[2019-10-24] MEDS ORDERED: KETOROLAC 30 MG/ML VIAL IVP STA (16:08)
--- NOTE | 2019-10-24 16:38 | Diagnostic Imaging Report ---
PROCEDURE: US right lower extremity venous. TECHNIQUE: Multiple real-time grayscale images were obtained over the right lower extremity in various projections. Additional spectral analysis and color Doppler duplex images were also obtained. INDICATION: Pain and swelling COMPARISON: None available FINDINGS: Normal flow, compression, and augmentation within the visualized deep venous structures of the right lower extremity. IMPRESSION: No evidence of deep venous thrombosis within the right lower extremity. Dictated by: Dictated on workstation # [id number]
--- NOTE | 2019-10-24 16:59 | ED General ---
General Chief Complaint: - Urinary Stated Complaint: SWOLLEN LEGS Nursing Triage Note: Pt reports being sent to ED from [facility] for urinary retention, painful urination and fluid retention. Pt reports symptoms have persisted for 3 days. Pt reports pain and pressure in R foot and reports recent 5 pound weight gain. Nursing Sepsis Screen: No Definite Risk Source of Information: Patient Exam Limitations: No Limitations History of Present Illness Date Seen by Provider: Oct 24, 2019 Time Seen by Provider: 15:54 Initial Comments Here with report of a variety of complaints but stems mostly around right leg pain for the last 3 days. She states the right leg is swollen and red and she is not sure what that is from. Denies recent injury. Denies nausea, vomiting, diarrhea. She did report some urinary problems but then reported that is not really or problems that she is worried about her leg. She also had some tooth pain but she is due for her Suboxone. She has to have multiple dental extractions. No reported fever or chills. No breathing problems. 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, altered mental status Home Medications Acyclovir 800 Mg Tablet, 800 MG PO 5XD Prescribed by: JAMIE YUNG on 02/20/19 0453 Hydroxyzine Pamoate 50 Mg Capsule, 50 MG PO Q6H PRN for PAIN-MODERATE (5-7) Prescribed by: RIKY HELMS on 06/08/19 1527 Methylprednisolone 4 Mg Tab.ds.pk, 4 MG PO UD Prescribed by: GILMA MENDEZ on 01/21/19 0040 Sertraline HCl 100 Mg Tablet, 200 MG PO DAILY, (Reported) TAKES 2 (100MG) TABLETS Simvastatin 40 Mg Tablet, 40 MG PO HS, (Reported) Sulfamethoxazole/Trimethoprim 1 Each Tablet, 1 EACH PO BID Prescribed by: GILMA MENDEZ on 01/21/19 0040 Patient Home Medication List Home Medication List Reviewed: Yes Review of Systems Review of Systems Constitutional: see HPI; No chills, No fever EENTM: no symptoms reported Respiratory: no symptoms reported Cardiovascular: No chest pain; edema Gastrointestinal: No abdominal pain, No nausea, No vomiting Genitourinary: decreased output; No dysuria : No Musculoskeletal: No back pain; muscle pain Skin: change in color; No lesions Psychiatric/Neurological: Anxiety; Denies Weakness Past Nvtmzuk-Aznrbk-Kbpsdp Hx Past Med/Social Hx: Reviewed Nursing Past Med/Soc Hx Patient Social History Alcohol Use: Denies Use Recreational Drug Use: No Drug of Choice: HAS HX OF LORATAB ABUSE Smoking Status: Current Everyday Smoker Type Used: Cigarettes 2nd Hand Smoke Exposure: Yes Recent Foreign Travel: No Contact w/Someone Who Travel: No Recent Infectious Disease Expo: No Recent Hopitalizations: No Immunizations Up To Date Tetanus Booster (TDap): More than 5yrs Seasonal Allergies Seasonal Allergies: No Past Medical History Surgeries: Yes (HYST/BSO; LEFT ANKLE RECONSTRUCTION) Appendectomy, Gallbladder, Hysterectomy, Oophorectomy, Orthopedic Respiratory: No Cardiac: No Neurological: No 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 Transmitted Disease: No HIV/AIDS: No Genitourinary: Yes Bladder Infection, UTI-Chronic Gastrointestinal: Yes Abdominal Hernia, Gastroesophageal Reflux Musculoskeletal: Yes (CHRONIC LEFT FOOT/ANKLE PAIN --S/P LEFT ANKLE RECONSTRUCTION) Degenerate Disk Disease, Fibromyalgia, Chronic Back Pain, Fractures Endocrine: No HEENT: No Loss of Vision: Denies Hearing Impairment: Denies Cancer: No Did You Recieve Any Treatments: No Psychosocial: Yes Sleep Difficulties, Anxiety, PTSD, Bipolar, Depression Integumentary: No Blood Disorders: No Adverse Reaction/Blood Tranf: No Family Medical History Reviewed Nursing Family Hx Cancer No Pertinent Family Hx Physical Exam Vital Signs Vital Signs - First Documented 10/24/19 14:50 Temp 36.9 Pulse 73 Resp 15 B/P (MAP) 101/65 (77) Pulse Ox 96 O2 Delivery Room Air Capillary Refill : Less Than 3 Seconds Height, Weight, BMI Height: 5'4.00" Weight: 175lbs. 6.4oz. 79.871988ze; 31.00 BMI Method:Stated General Appearance: No Apparent Distress, WD/WN HEENT: PERRL/EOMI, Pharynx Normal, Other (poor dentition overall but no findings to suggest intraoral abscess) Neck: Non Tender, Supple; No Lymphadenopathy (L), No Lymphadenopathy (R) Respiratory: Lungs Clear, Normal Breath Sounds Cardiovascular: Regular Rate, Rhythm, No Murmur Gastrointestinal: Non Tender, Soft Back: Normal Inspection, No CVA Tenderness, No Vertebral Tenderness Neurologic/Psychiatric: Alert, Oriented x3, Other (right leg has some redness and swelling about the calf from the ankles to just above the mid to upper calf area. Does not involve the knee and there are no red streaks up the leg. There is no inguinal lymphadenopathy on the right.) Skin: Warm/Dry, Erythema (right leg as described above) Progress/Results/Core Measures Suspected Sepsis Recent Fever Within 48 Hours: No Infection Criteria Present: None New/Unexplained Altered Menta: No Sepsis Screen: No Definite Risk SIRS Temperature: Pulse: 73 Respiratory Rate: 15 Laboratory Tests 10/24/19 15:05: White Blood Count 5.8 Blood Pressure 101 /65 Mean: 77 Laboratory Tests 10/24/19 15:05: Creatinine 0.78, Platelet Count 183, Total Bilirubin 0.3 Results/Orders Lab Results Laboratory Tests Test 10/24/19 14:55 10/24/19 15:05 Range/Units Urine Color YELLOW Urine Clarity CLEAR Urine pH 8.0 5-9 Urine Specific Ira 1.020 1.016-1.022 Urine Protein NEGATIVE NEGATIVE Urine Glucose (UA) NEGATIVE NEGATIVE Urine Ketones NEGATIVE NEGATIVE Urine Nitrite NEGATIVE NEGATIVE Urine Bilirubin NEGATIVE NEGATIVE Urine Urobilinogen 0.2 < = 1.0 MG/DL Urine Leukocyte Esterase NEGATIVE NEGATIVE Urine RBC (Auto) TRACE-I NEGATIVE Urine RBC 2-5 H /HPF Urine WBC NONE /HPF Urine Squamous Epithelial Cells 2-5 /HPF Urine Crystals PRESENT H /LPF Urine Amorphous Sediment FEW KUMAR PHOSPHATE H /LPF Urine Bacteria FEW H /HPF Urine Casts NONE /LPF Urine Mucus NEGATIVE /LPF Urine Culture Indicated NO White Blood Count 5.8 4.3-11.0 10^3/uL Red Blood Count 4.42 4.35-5.85 10^6/uL Hemoglobin 13.4 11.5-16.0 G/DL Hematocrit 42 35-52 % Mean Corpuscular Volume 95 80-99 FL Mean Corpuscular Hemoglobin 30 25-34 PG Mean Corpuscular Hemoglobin Concent 32 32-36 G/DL Red Cell Distribution Width 13.7 10.0-14.5 % Platelet Count 183 130-400 10^3/uL Mean Platelet Volume 10.4 7.4-10.4 FL Neutrophils (%) (Auto) 64 42-75 % Lymphocytes (%) (Auto) 25 12-44 % Monocytes (%) (Auto) 6 0-12 % Eosinophils (%) (Auto) 4 0-10 % Basophils (%) (Auto) 1 0-10 % Neutrophils # (Auto) 3.7 1.8-7.8 X 10^3 Lymphocytes # (Auto) 1.5 1.0-4.0 X 10^3 Monocytes # (Auto) 0.4 0.0-1.0 X 10^3 Eosinophils # (Auto) 0.2 0.0-0.3 10^3/uL Basophils # (Auto) 0.0 0.0-0.1 10^3/uL Sodium Level 144 135-145 MMOL/L Potassium Level 4.0 3.6-5.0 MMOL/L Chloride Level 108 H 98-107 MMOL/L Carbon Dioxide Level 25 21-32 MMOL/L Anion Gap 11 5-14 MMOL/L Blood Urea Nitrogen 12 7-18 MG/DL Creatinine 0.78 0.60-1.30 MG/DL Estimat Glomerular Filtration Rate > 60 BUN/Creatinine Ratio 15 Glucose Level 89 70-105 MG/DL Calcium Level 9.1 8.5-10.1 MG/DL Corrected Calcium 9.3 8.5-10.1 MG/DL Total Bilirubin 0.3 0.1-1.0 MG/DL Aspartate Amino Transf (AST/SGOT) 19 5-34 U/L Alanine Aminotransferase (ALT/SGPT) 19 0-55 U/L Alkaline Phosphatase 108 40-136 U/L B-Type Natriuretic Peptide 47.6 <100.0 PG/ML Total Protein 7.1 6.4-8.2 GM/DL Albumin 3.8 3.2-4.5 GM/DL Thyroid Stimulating Hormone (TSH) 0.50 0.35-4.94 UIU/ML Free Thyroxine 0.85 0.70-1.48 NG/DL My Orders Orders - ELAINE CASAS MD Ketorolac Injection (Toradol Injection) (10/24/19 16:08) Vital Signs/I&O 10/24/19 14:50 Temp 36.9 Pulse 73 Resp 15 B/P (MAP) 101/65 (77) Pulse Ox 96 O2 Delivery Room Air Capillary Refill : Less Than 3 Seconds Blood Pressure Mean: 77 Progress Note : Progress Note Seen and evaluated. IV, labs, UA and ultrasound right lower extremity ordered. Toradol 30 mg IV ordered. Monitor patient. Labs reassuring and UA negative. Ultrasound negative for DVT. She was doing better. She does have flaking skin on the feet and cracked skin area which may be opening for possible infection to the right lower extremity. We will treat as such. We will initiate doxycycline outpatient and have her follow up with her doctor to see if she is having improvement. She was instructed to return if worsening. Discharge instructions given. Patient verbalize understanding instructions and agreement with plan. Diagnostic Imaging Diagonstic Imaging: Ultrasound Plain Films/CT/US/NM/MRI: leg Comments [facility] [place] NAME: DELON ZELAYA [facility] REC#: [id number] PT STATUS: REG ER : 1970 PHYSICIAN: RIKY HELMS APRN ADMIT DATE: 10/24/19/ER Signed Date of Exam:10/24/19 US VENOUS LOWER EXT RT PROCEDURE: US right lower extremity venous. TECHNIQUE: Multiple real-time grayscale images were obtained over the right lower extremity in various projections. Additional spectral analysis and color Doppler duplex images were also obtained. INDICATION: Pain and swelling COMPARISON: None available FINDINGS: Normal flow, compression, and augmentation within the visualized deep venous structures of the right lower extremity. IMPRESSION: No evidence of deep venous thrombosis within the right lower extremity. Dictated by: Dictated on workstation # [id number] Dict: 10/24/19 1634 Trans: 10/24/19 1642 [facility] [id number] Interpreted by: MIGUEL ÁNGEL HSU MD Electronically signed by: MIGUEL ÁNGEL HSU MD 10/24/19 1642 Departure Impression Primary Impression: Cellulitis of right lower extremity Disposition: 01 HOME, SELF-CARE Condition: Stable Departure-Patient Inst. Decision time for Depature: 16:59 Referrals: DANIELLE JUARES DO (PCP/Family) Primary Care Physician Patient Instructions: Cellulitis (Skin Infection), Adult (DC) Add. Discharge Instructions: All discharge instructions reviewed with patient and/or family. Voiced understanding. Take medications as directed. Follow-up with your doctor later this week for recheck and further evaluation. Return for worse pain, fever, vomiting, weakness, breathing problems, red streaks up the leg or other concerns as needed. Continue home pain medicines and he may add Tylenol/acetaminophen and/or ibuprofen if tolerated per package directions. ELAINE CASAS MD Oct 24, 2019 16:59
[2019-10-24] MEDS ORDERED: DOXY100T2 PO (17:08)
[2019-10-24 17:10] VITALS: BP 110/72
== END 2019-10-24 17:15 | disposition home or self-care (01) ==
LOC: EDUNIT# 14:12 → ER 14:14
DX: L03.115 Cellulitis of right lower limb (principal); Z79.899 Other long term (current) drug therapy; F17.210 Nicotine dependence, cigarettes, uncomplicated; K21.9 Gastro-esophageal reflux disease without esophagitis; F41.9 Anxiety disorder, unspecified; F31.9 Bipolar disorder, unspecified; F43.10 Post-traumatic stress disorder, unspecified; M54.9 Dorsalgia, unspecified; M79.7 Fibromyalgia; Z88.1 Allergy status to other antibiotic agents; Z88.5 Allergy status to narcotic agent
CPT/HCPCS: 36415; 80053; 81000; 83880; 84439; 84443; 85025

== ENCOUNTER 2019-11-04 13:05 | Emergency (ER) | payer MEDICARE, MEDICAID ==
[~2019-11-04] VITALS: Ht 162.5 cm; Wt 81.6 kg
[~2019-11-04 13:05] MED LIST changes: +DOXY100T2 PO
[2019-11-04] MEDS ORDERED: RX-ALBUTEROL INHALER (PROAIR) 8.5 GM IH ONE (13:13)
--- NOTE | 2019-11-04 13:27 | ED Abdominal Pain ---
General Chief Complaint: Abdominal/GI Problems Stated Complaint: VOMITING Source of Information: Patient Exam Limitations: No Limitations History of Present Illness Date Seen by Provider: Nov 04, 2019 Time Seen by Provider: 13:25 Initial Comments to ER with reports of vomiting. She doesn't know when it started, allegedly her told her she was vomiting. Very difficult to obtain any history from, she answers all questions with "I don't know". Multiple admissions for psychiatric reasons. 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, altered mental status Home Medications Acyclovir 800 Mg Tablet, 800 MG PO 5XD Prescribed by: JAMIE YUNG on 02/20/19 0453 Doxycycline Hyclate 100 Mg Tablet, 100 MG PO BID Prescribed by: ELAINE CASAS on 10/24/19 1708 Hydroxyzine HCl 25 Mg Tablet, 25 MG PO Q4H Prescribed by: RIKY HELMS on 11/04/19 1355 Hydroxyzine Pamoate 50 Mg Capsule, 50 MG PO Q6H PRN for PAIN-MODERATE (5-7) Prescribed by: RIKY HELMS on 06/08/19 1527 Methylprednisolone 4 Mg Tab.ds.pk, 4 MG PO UD Prescribed by: GILMA MENDEZ on 01/21/19 0040 Sertraline HCl 100 Mg Tablet, 200 MG PO DAILY, (Reported) TAKES 2 (100MG) TABLETS Simvastatin 40 Mg Tablet, 40 MG PO HS, (Reported) Sulfamethoxazole/Trimethoprim 1 Each Tablet, 1 EACH PO BID Prescribed by: GILMA MENDEZ on 01/21/19 0040 Patient Home Medication List Home Medication List Reviewed: Yes Review of Systems Review of Systems Constitutional: see HPI EENTM: No Symptoms Reported Respiratory: No Symptoms Reported Gastrointestinal: No Symptoms Reported Genitourinary: No Symptoms Reported Musculoskeletal: no symptoms reported Skin: no symptoms reported Psychiatric/Neurological: See HPI Past Dpufvpk-Cptpoy-Kbskal Hx Patient Social History Alcohol Use: Denies Use Recreational Drug Use: No Drug of Choice: HAS HX OF LORATAB ABUSE Smoking Status: Current Everyday Smoker Type Used: Cigarettes 2nd Hand Smoke Exposure: Yes Recent Hopitalizations: No Immunizations Up To Date Tetanus Booster (TDap): More than 5yrs Seasonal Allergies Seasonal Allergies: No Past Medical History Surgeries: Yes (HYST/BSO; LEFT ANKLE RECONSTRUCTION) Appendectomy, Gallbladder, Hysterectomy, Oophorectomy, Orthopedic Respiratory: No Cardiac: No Neurological: No 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 Sexually Transmitted Disease: No HIV/AIDS: No Genitourinary: Yes Bladder Infection, UTI-Chronic Gastrointestinal: Yes Abdominal Hernia, Gastroesophageal Reflux Musculoskeletal: Yes (CHRONIC LEFT FOOT/ANKLE PAIN --S/P LEFT ANKLE RECONSTRUCTION) Degenerate Disk Disease, Fibromyalgia, Chronic Back Pain, Fractures Endocrine: No HEENT: No Loss of Vision: Denies Hearing Impairment: Denies Cancer: No Did You Recieve Any Treatments: No Psychosocial: Yes Sleep Difficulties, Anxiety, PTSD, Bipolar, Depression Integumentary: No Blood Disorders: No Adverse Reaction/Blood Tranf: No Family Medical History Cancer No Pertinent Family Hx Physical Exam Vital Signs Vital Signs - First Documented 11/04/19 13:23 Temp 36.9 Pulse 77 Resp 20 B/P (MAP) 124/78 (93) Pulse Ox 94 O2 Delivery Room Air Capillary Refill : Height/Weight/BMI Height: 5'4.00" Weight: 175lbs. 6.4oz. [id number]; 31.00 BMI Method:Stated General Appearance: WD/WN, no apparent distress Neck: non-tender, full range of motion Respiratory: lungs clear, normal breath sounds, no respiratory distress, no accessory muscle use, other (upper airway breath sounds on inspiration and exhalation, these go away when she talks) Cardiovascular: regular rate, rhythm Gastrointestinal: normal bowel sounds, soft Neurologic/Psychiatric: alert, normal mood/affect Skin: normal color, warm/dry Progress/Results/Core Measures Results/Orders Lab Results Laboratory Tests Test 11/04/19 13:20 11/04/19 14:03 Range/Units White Blood Count 5.2 4.3-11.0 10^3/uL Red Blood Count 4.83 4.35-5.85 10^6/uL Hemoglobin 14.8 11.5-16.0 G/DL Hematocrit 45 35-52 % Mean Corpuscular Volume 93 80-99 FL Mean Corpuscular Hemoglobin 31 25-34 PG Mean Corpuscular Hemoglobin Concent 33 32-36 G/DL Red Cell Distribution Width 13.7 10.0-14.5 % Platelet Count 226 130-400 10^3/uL Mean Platelet Volume 10.2 7.4-10.4 FL Neutrophils (%) (Auto) 71 42-75 % Lymphocytes (%) (Auto) 23 12-44 % Monocytes (%) (Auto) 5 0-12 % Eosinophils (%) (Auto) 1 0-10 % Basophils (%) (Auto) 0 0-10 % Neutrophils # (Auto) 3.6 1.8-7.8 X 10^3 Lymphocytes # (Auto) 1.2 1.0-4.0 X 10^3 Monocytes # (Auto) 0.3 0.0-1.0 X 10^3 Eosinophils # (Auto) 0.1 0.0-0.3 10^3/uL Basophils # (Auto) 0.0 0.0-0.1 10^3/uL Sodium Level 145 135-145 MMOL/L Potassium Level 4.0 3.6-5.0 MMOL/L Chloride Level 108 H 98-107 MMOL/L Carbon Dioxide Level 27 21-32 MMOL/L Anion Gap 10 5-14 MMOL/L Blood Urea Nitrogen 13 7-18 MG/DL Creatinine 0.79 0.60-1.30 MG/DL Estimat Glomerular Filtration Rate > 60 BUN/Creatinine Ratio 16 Glucose Level 113 H 70-105 MG/DL Calcium Level 9.2 8.5-10.1 MG/DL Corrected Calcium 9.4 8.5-10.1 MG/DL Total Bilirubin 0.2 0.1-1.0 MG/DL Aspartate Amino Transf (AST/SGOT) 12 5-34 U/L Alanine Aminotransferase (ALT/SGPT) 11 0-55 U/L Alkaline Phosphatase 120 40-136 U/L C-Reactive Protein High Sensitivity 0.16 0.00-0.50 MG/DL Total Protein 6.8 6.4-8.2 GM/DL Albumin 3.8 3.2-4.5 GM/DL Serum Alcohol < 10 <10 MG/DL My Orders Orders - RIKY HELMS APRN Cbc With Automated Diff (11/04/19 13:23) Comprehensive Metabolic Panel (11/04/19 13:23) Alcohol (4/12/20 13:23) Hs C Reactive Protein (11/04/19 13:23) Chest 1 View, Ap/Pa Only (11/04/19 13:23) Ua Culture If Indicated (11/04/19 13:23) Drug Screen Stat (Urine) (11/04/19 13:23) Olanzapine Orally Dissolve Tab (Zyprexa (11/04/19 13:30) Arterial Blood Gas (11/04/19 14:04) Medications Given in ED Current Medications Medications Dose Ordered Sig/Sim Route Start Time Stop Time Status Last Admin Dose Admin Albuterol Sulfate 8.5 gm STK-MED ONCE IH 11/04/19 13:13 11/04/19 13:20 DC 11/04/19 13:22 8.5 GM Olanzapine 5 mg ONCE ONCE PO 11/04/19 13:30 11/04/19 13:31 DC 11/04/19 13:52 5 MG Vital Signs/I&O 11/04/19 13:23 Temp 36.9 Pulse 77 Resp 20 B/P (MAP) 124/78 (93) Pulse Ox 94 O2 Delivery Room Air Departure Communication (Admissions) she does have the sound of course stridor in the upper airway however given the rest of the picture, avoids eye contact, doesn't speak, answers most questions with "I don't know" I suspect these are manufactured and not true stridor.no rash no hypotension no tachycardia and no other indication of anaphylaxis. No accessory muscle use oxygen saturation 97% room air. Impression Primary Impression: Anxiety Disposition: HOME, SELF-CARE Condition: Stable Departure-Patient Inst. Decision time for Depature: 13:54 Referrals: DANIELLE JUARES DO (PCP/Family) Primary Care Physician Patient Instructions: Anxiety, Adult (DC) Add. Discharge Instructions: 1. Return to ER for any concerns 2. Follow-up with her doctor next week 3. All discharge instructions reviewed with patient and/or family. Voiced understanding. Scripts Hydroxyzine HCl (Hydroxyzine HCl) 25 Mg Tablet 25 MG PO Q4H, #14 TAB Prov: RIKY HELMS [employer] 11/04/19 RIKY HELMS APRN Nov 04, 2019 13:27
[2019-11-04] MEDS ORDERED: OLANZapine 5 MG ODT (ZyPREXA ZYDIS) PO ONE (13:30)
[2019-11-04 13:33] LABS: BASOPHILS % (AUTO) 0 % (0-10); EOSINOPHILS # (AUTO) 0.1 10^3/uL (0.0-0.3); EOSINOPHILS % (AUTO) 1 % (0-10); HEMATOCRIT 45 % (35-52); HEMOGLOBIN 14.8 G/DL (11.5-16.0); LYMPHOCYTES # (AUTO) 1.2 X 10^3 (1.0-4.0); LYMPHOCYTES % (AUTO) 23 % (12-44); MEAN CORPUSCULAR HEMOGLOBIN 31 PG (25-34); MEAN CORPUSCULAR HGB CONC 33 G/DL (32-36); MEAN CORPUSCULAR VOLUME 93 FL (80-99); MEAN PLATELET VOLUME 10.2 FL (7.4-10.4); MONOCYTES # (AUTO) 0.3 X 10^3 (0.0-1.0); MONOCYTES % (AUTO) 5 % (0-12); NEUTROPHILS # (AUTO) 3.6 X 10^3 (1.8-7.8); NEUTROPHILS % (AUTO) 71 % (42-75); PLATELET COUNT 226 10^3/uL (130-400); RED CELL DISTRIBUTION WIDTH 13.7 % (10.0-14.5); WHITE BLOOD COUNT 5.2 10^3/uL (4.3-11.0)
[2019-11-04 13:44] LABS: ALBUMIN 3.8 GM/DL (3.2-4.5); CHLORIDE 108 MMOL/L (98-107); SODIUM 145 MMOL/L (135-145)
[2019-11-04 13:45] LABS: CALCIUM 9.2 MG/DL (8.5-10.1)
[2019-11-04 13:46] LABS: GLUCOSE 113 MG/DL (70-105)
[2019-11-04 13:47] LABS: CARBON DIOXIDE 27 MMOL/L (21-32); TOTAL PROTEIN 6.8 GM/DL (6.4-8.2)
[2019-11-04 13:48] LABS: BILIRUBIN,TOTAL 0.2 MG/DL (0.1-1.0)
[2019-11-04 13:50] LABS: ALKALINE PHOSPHATASE 120 U/L (40-136); CREATININE SERUM 0.79 MG/DL (0.60-1.30); GFR ESTIMATED > 60
[2019-11-04 13:51] LABS: BUN/CREATININE RATIO 16
[2019-11-04 13:53] LABS: ALANINE AMINOTRANSFERASE 11 U/L (0-55)
[2019-11-04] MEDS ORDERED: HYDR-700 PO (13:55)
--- NOTE | 2019-11-04 13:56 | Diagnostic Imaging Report ---
INDICATION: Dyspnea. COMPARISON: 06/08/2019. DISCUSSION: Single portable upright view of the chest was obtained. Stable normal heart size. No new consolidation, pleural fluid, or pneumothorax. No osseous abnormality. IMPRESSION: 1. No acute cardiopulmonary process. Dictated by: Dictated on workstation # [id number]
[2019-11-04 14:12] LABS: ABG BASE EXCESS 2.5 MMOL/L (-2.5-2.5); ABG OXYGEN SATURATION 91 % (94-100); ABG PCO2 48 MMHG (35-45); ABG PH 7.37 (7.37-7.43); ABG PO2 59 MMHG (79-93); ABG TCO2 28.8 MMOL/L (21.0-31.0)
[2019-11-04 14:16] LABS: ALLENS TEST P; INSPIRED O2 ROOM AIR; PATIENT TEMP 37; VENTILATOR NO
[2019-11-04] MEDS ORDERED: ALPRAZolam 0.25 MG (XANAX) TAB PO ONE (14:30)
[2019-11-04] MEDS ORDERED: ONDANSETRON 4 MG (ZOFRAN) ORAL DISSOLVE TAB PO STA (14:35)
[2019-11-04 14:55] VITALS: BP 122/68
== END 2019-11-04 14:55 | disposition home or self-care (01) ==
LOC: EDUNIT# 13:08 → ER 13:14
DX: F41.9 Anxiety disorder, unspecified (principal); F31.9 Bipolar disorder, unspecified; F17.210 Nicotine dependence, cigarettes, uncomplicated; Z88.0 Allergy status to penicillin; Z88.5 Allergy status to narcotic agent; Z88.8 Allergy status to other drugs, medicaments and biological substances
CPT/HCPCS: 36415; 71045; 80053; 80320; 82805; 85025; 86141

== ENCOUNTER 2019-11-10 09:05 | Emergency (ER) | payer MEDICARE, MEDICAID ==
[~2019-11-10] VITALS: Ht 162 cm; Wt 90.9 kg
[~2019-11-10 09:05] MED LIST changes: +HYDR-700 PO
[2019-11-10 09:50] LABS: BASOPHILS % (AUTO) 0 % (0-10); EOSINOPHILS # (AUTO) 0.3 10^3/uL (0.0-0.3); EOSINOPHILS % (AUTO) 6 % (0-10); HEMATOCRIT 40 % (35-52); HEMOGLOBIN 12.8 G/DL (11.5-16.0); LYMPHOCYTES # (AUTO) 2.3 X 10^3 (1.0-4.0); LYMPHOCYTES % (AUTO) 40 % (12-44); MEAN CORPUSCULAR HEMOGLOBIN 31 PG (25-34); MEAN CORPUSCULAR HGB CONC 32 G/DL (32-36); MEAN CORPUSCULAR VOLUME 96 FL (80-99); MEAN PLATELET VOLUME 10.3 FL (7.4-10.4); MONOCYTES # (AUTO) 0.5 X 10^3 (0.0-1.0); MONOCYTES % (AUTO) 9 % (0-12); NEUTROPHILS # (AUTO) 2.6 X 10^3 (1.8-7.8); NEUTROPHILS % (AUTO) 45 % (42-75); PLATELET COUNT 172 10^3/uL (130-400); RED CELL DISTRIBUTION WIDTH 13.3 % (10.0-14.5); WHITE BLOOD COUNT 5.8 10^3/uL (4.3-11.0)
[2019-11-10 10:10] LABS: ALANINE AMINOTRANSFERASE 15 U/L (0-55); ALBUMIN 3.6 GM/DL (3.2-4.5); ALKALINE PHOSPHATASE 132 U/L (40-136); BILIRUBIN,TOTAL 0.2 MG/DL (0.1-1.0); BUN/CREATININE RATIO 18; CALCIUM 8.7 MG/DL (8.5-10.1); CARBON DIOXIDE 28 MMOL/L (21-32); CHLORIDE 105 MMOL/L (98-107); CREATININE SERUM 0.84 MG/DL (0.60-1.30); GFR ESTIMATED > 60; GLUCOSE 76 MG/DL (70-105); POTASSIUM 4.1 MMOL/L (3.6-5.0); SODIUM 142 MMOL/L (135-145); TOTAL PROTEIN 6.4 GM/DL (6.4-8.2)
--- NOTE | 2019-11-10 10:25 | ED Lower Extremity ---
General Chief Complaint: Lower Extremity Stated Complaint: R LEG SWELLING Nursing Triage Note: PT PRESENTS TO ED WITH COMPLAINTS OF R LOWER LEG/FOOT SWELLING X 2 WEEKS. Nursing Sepsis Screen: No Definite Risk Source: patient Exam Limitations: no limitations History of Present Illness Date Seen by Provider: Nov 10, 2019 Time Seen by Provider: 09:33 Initial Comments This 49-year-old woman presents to the emergency room with complaints of right lower leg swelling, discomfort, and warmth. She was seen for the same thing on October 23. She was prescribed doxycycline for suspected cellulitis at that time and an ultrasound exam was negative for DVT. She reports the doxycycline did not help despite completing the entire course. She is afebrile. 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, altered mental status Home Medications Acyclovir 800 Mg Tablet, 800 MG PO 5XD Prescribed by: JAMIE YUNG on 02/20/19 0453 Doxycycline Hyclate 100 Mg Tablet, 100 MG PO BID Prescribed by: ELAINE CASAS on 10/24/19 1708 Hydroxyzine HCl 25 Mg Tablet, 25 MG PO Q4H Prescribed by: RIKY HELMS on 11/04/19 1355 Hydroxyzine Pamoate 50 Mg Capsule, 50 MG PO Q6H PRN for PAIN-MODERATE (5-7) Prescribed by: RIKY HELMS on 06/08/19 1527 Methylprednisolone 4 Mg Tab.ds.pk, 4 MG PO UD Prescribed by: GILMA MENDEZ on 01/21/1939 Sertraline HCl 100 Mg Tablet, 200 MG PO DAILY, (Reported) TAKES 2 (100MG) TABLETS Simvastatin 40 Mg Tablet, 40 MG PO HS, (Reported) Sulfamethoxazole/Trimethoprim 1 Each Tablet, 1 EACH PO BID Prescribed by: GILMA MENDEZ on 01/21/1939 Patient Home Medication List Home Medication List Reviewed: Yes Review of Systems Constitutional: no symptoms reported EENTM: no symptoms reported Respiratory: no symptoms reported Cardiovascular: see HPI Gastrointestinal: no symptoms reported Genitourinary: no symptoms reported Musculoskeletal: no symptoms reported Skin: see HPI Psychiatric/Neurological: No Symptoms Reported Past Jszdhie-Uthsxp-Zlimxp Hx Past Med/Social Hx: Reviewed Nursing Past Med/Soc Hx Patient Social History Alcohol Use: Denies Use Recreational Drug Use: No Drug of Choice: HAS HX OF LORATAB ABUSE Smoking Status: Current Everyday Smoker Type Used: Cigarettes 2nd Hand Smoke Exposure: Yes Recent Foreign Travel: No Contact w/Someone Who Travel: No Recent Infectious Disease Expo: No Recent Hopitalizations: No Physical Abuse: No Sexual Abuse: No Mistreated: No Fear: No Immunizations Up To Date Tetanus Booster (TDap): More than 5yrs Seasonal Allergies Seasonal Allergies: No Past Medical History Surgeries: Yes (HYST/BSO; LEFT ANKLE RECONSTRUCTION) Appendectomy, Gallbladder, Hysterectomy, Oophorectomy, Orthopedic Respiratory: No Cardiac: No Neurological: No 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 Sexually Transmitted Disease: No HIV/AIDS: No Genitourinary: Yes Bladder Infection, UTI-Chronic Gastrointestinal: Yes Abdominal Hernia, Gastroesophageal Reflux Musculoskeletal: Yes (CHRONIC LEFT FOOT/ANKLE PAIN --S/P LEFT ANKLE RECONSTRUCTION) Degenerate Disk Disease, Fibromyalgia, Chronic Back Pain, Fractures Endocrine: No HEENT: No Loss of Vision: Denies Hearing Impairment: Denies Cancer: No Did You Recieve Any Treatments: No Psychosocial: Yes Sleep Difficulties, Anxiety, PTSD, Bipolar, Depression Integumentary: No Blood Disorders: No Adverse Reaction/Blood Tranf: No Family Medical History Cancer No Pertinent Family Hx Physical Exam Vital Signs Vital Signs - First Documented 11/10/19 09:25 Temp 36.3 Pulse 91 Resp 20 B/P (MAP) 116/77 (90) Pulse Ox 97 Capillary Refill : Less Than 3 Seconds Height, Weight, BMI Height: 5'4.00" Weight: 175lbs. 6.4oz. [id number]; 34.00 BMI Method:Stated General Appearance: WD/WN, no apparent distress HEENT: normal ENT inspection Neck: normal inspection Cardiovascular: regular rate, rhythm, no edema, no murmur Respiratory: lungs clear, normal breath sounds, no respiratory distress Legs: right leg pain, right leg soft tissue tenderness, right leg swelling, right leg other (mild warmth and erythema) Progress/Results/Core Measures Results/Orders Lab Results Laboratory Tests Test 11/10/19 09:42 Range/Units White Blood Count 5.8 4.3-11.0 10^3/uL Red Blood Count 4.15 L 4.35-5.85 10^6/uL Hemoglobin 12.8 11.5-16.0 G/DL Hematocrit 40 35-52 % Mean Corpuscular Volume 96 80-99 FL Mean Corpuscular Hemoglobin 31 25-34 PG Mean Corpuscular Hemoglobin Concent 32 32-36 G/DL Red Cell Distribution Width 13.3 10.0-14.5 % Platelet Count 172 130-400 10^3/uL Mean Platelet Volume 10.3 7.4-10.4 FL Neutrophils (%) (Auto) 45 42-75 % Lymphocytes (%) (Auto) 40 12-44 % Monocytes (%) (Auto) 9 0-12 % Eosinophils (%) (Auto) 6 0-10 % Basophils (%) (Auto) 0 0-10 % Neutrophils # (Auto) 2.6 1.8-7.8 X 10^3 Lymphocytes # (Auto) 2.3 1.0-4.0 X 10^3 Monocytes # (Auto) 0.5 0.0-1.0 X 10^3 Eosinophils # (Auto) 0.3 0.0-0.3 10^3/uL Basophils # (Auto) 0.0 0.0-0.1 10^3/uL D-Dimer 0.48 0.00-0.49 UG/ML Sodium Level 142 135-145 MMOL/L Potassium Level 4.1 3.6-5.0 MMOL/L Chloride Level 105 98-107 MMOL/L Carbon Dioxide Level 28 21-32 MMOL/L Anion Gap 9 5-14 MMOL/L Blood Urea Nitrogen 15 7-18 MG/DL Creatinine 0.84 0.60-1.30 MG/DL Estimat Glomerular Filtration Rate > 60 BUN/Creatinine Ratio 18 Glucose Level 76 70-105 MG/DL Calcium Level 8.7 8.5-10.1 MG/DL Corrected Calcium 9.0 8.5-10.1 MG/DL Total Bilirubin 0.2 0.1-1.0 MG/DL Aspartate Amino Transf (AST/SGOT) 15 5-34 U/L Alanine Aminotransferase (ALT/SGPT) 15 0-55 U/L Alkaline Phosphatase 132 40-136 U/L C-Reactive Protein High Sensitivity 0.28 0.00-0.50 MG/DL Total Protein 6.4 6.4-8.2 GM/DL Albumin 3.6 3.2-4.5 GM/DL My Orders Orders - JAMIE KNOX MD Cbc With Automated Diff (11/10/19 09:41) Comprehensive Metabolic Panel (11/10/19 09:41) Hs C Reactive Protein (11/10/19 09:41) Fibrin Degradation Products (11/10/19 09:41) Vital Signs/I&O 11/10/19 11/10/19 09:25 10:32 Temp 36.3 Pulse 91 85 Resp 20 16 B/P (MAP) 116/77 (90) 124/71 Pulse Ox 97 98 Blood Pressure Mean: 90 Progress Progress Note : Progress Note Ultrasound is not available at this time. Further assessment was provided by obtaining labs. There is no indication of infection or DVT with either labs or vitals signs. Patient was given reassurance and discharged. Departure Impression Primary Impression: Leg edema, right Disposition: 01 HOME, SELF-CARE Condition: Stable Departure-Patient Inst. Referrals: DANIELLE JUARES DO (PCP/Family) Primary Care Physician Patient Instructions: Swelling Add. Discharge Instructions: Elevate your legs at rest to help with swelling. Follow-up with your primary care doctor as soon as possible. Return to care if you have worsening symptoms. Your lab work today did not suggest blood clot nor infection. All discharge instructions reviewed with patient and/or family. Voiced understanding. Copy Copies To 1: DANIELLE JUARES JOSHUA T MD Nov 10, 2019 10:25
[2019-11-10 10:32] VITALS: BP 124/71
[2019-11-11] MEDS ORDERED: CEFD300C3 PO (15:56)
== END 2019-11-10 10:32 | disposition home or self-care (01) ==
LOC: EDUNIT# 09:05 → ER 09:06
DX: R60.0 Localized edema (principal); F41.9 Anxiety disorder, unspecified; F43.10 Post-traumatic stress disorder, unspecified; F31.9 Bipolar disorder, unspecified; F17.210 Nicotine dependence, cigarettes, uncomplicated; Z88.1 Allergy status to other antibiotic agents; Z88.5 Allergy status to narcotic agent; Z88.8 Allergy status to other drugs, medicaments and biological substances; Z90.49 Acquired absence of other specified parts of digestive tract; Z90.710 Acquired absence of both cervix and uterus
CPT/HCPCS: 36415; 80053; 85025; 85379; 86141

== ENCOUNTER 2019-11-11 15:36 | Emergency (ER) | payer MEDICARE, MEDICAID ==
[~2019-11-11] VITALS: Ht 167 cm; Wt 90.9 kg
[2019-11-11] MEDS ORDERED: CEFD300C3 PO (15:56)
--- NOTE | 2019-11-11 15:56 | ED Lower Extremity ---
General Stated Complaint: R FOOT/LEG SWELLING Source: patient Exam Limitations: no limitations History of Present Illness Date Seen by Provider: Nov 11, 2019 Time Seen by Provider: 15:51 Initial Comments To ER with swelling bilateral lower extremities right greater than left. No fever no chills. She saw a tele- health healthcare provider who advised her to have an ultrasound of both lower extremities in the ER. However she was just here yesterday and as part of her workup had a d-dimer drawn which was normal. 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, altered mental status Home Medications Acyclovir 800 Mg Tablet, 800 MG PO 5XD Prescribed by: JAMIE YUNG on 02/20/19 0453 Doxycycline Hyclate 100 Mg Tablet, 100 MG PO BID Prescribed by: ELAINE CASAS on 10/24/19 1708 Hydroxyzine HCl 25 Mg Tablet, 25 MG PO Q4H Prescribed by: RIKY HELMS on 11/04/19 1355 Hydroxyzine Pamoate 50 Mg Capsule, 50 MG PO Q6H PRN for PAIN-MODERATE (5-7) Prescribed by: RIKY HELMS on 06/08/19 1527 Methylprednisolone 4 Mg Tab.ds.pk, 4 MG PO UD Prescribed by: GILMA MENDEZ on 01/21/19 0040 Sertraline HCl 100 Mg Tablet, 200 MG PO DAILY, (Reported) TAKES 2 (100MG) TABLETS Simvastatin 40 Mg Tablet, 40 MG PO HS, (Reported) Sulfamethoxazole/Trimethoprim 1 Each Tablet, 1 EACH PO BID Prescribed by: GILMA MENDEZ on 01/21/19 004 Patient Home Medication List Home Medication List Reviewed: Yes Review of Systems Constitutional: see HPI EENTM: see HPI Respiratory: no symptoms reported Cardiovascular: no symptoms reported Genitourinary: no symptoms reported Musculoskeletal: see HPI Skin: no symptoms reported Psychiatric/Neurological: No Symptoms Reported Past Zpshbqc-Vrfhzw-Adhrvb Hx Patient Social History Drug of Choice: HAS HX OF LORATAB ABUSE Type Used: Cigarettes 2nd Hand Smoke Exposure: Yes Recent Foreign Travel: No Contact w/Someone Who Travel: No Recent Hopitalizations: No Immunizations Up To Date Tetanus Booster (TDap): More than 5yrs Seasonal Allergies Seasonal Allergies: No Past Medical History Surgeries: Yes (HYST/BSO; LEFT ANKLE RECONSTRUCTION) Appendectomy, Gallbladder, Hysterectomy, Oophorectomy, Orthopedic Respiratory: No Cardiac: No Neurological: No 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 Sexually Transmitted Disease: No HIV/AIDS: No Genitourinary: Yes Bladder Infection, UTI-Chronic Gastrointestinal: Yes Abdominal Hernia, Gastroesophageal Reflux Musculoskeletal: Yes (CHRONIC LEFT FOOT/ANKLE PAIN --S/P LEFT ANKLE RECONSTRUCTION) Degenerate Disk Disease, Fibromyalgia, Chronic Back Pain, Fractures Endocrine: No HEENT: No Loss of Vision: Denies Hearing Impairment: Denies Cancer: No Did You Recieve Any Treatments: No Psychosocial: Yes Sleep Difficulties, Anxiety, PTSD, Bipolar, Depression Integumentary: No Blood Disorders: No Adverse Reaction/Blood Tranf: No Family Medical History Cancer No Pertinent Family Hx Physical Exam Vital Signs Capillary Refill : Height, Weight, BMI Height: 5'4.00" Weight: 175lbs. 6.4oz. 79.461985uz; 34.00 BMI Method:Stated General Appearance: WD/WN, no apparent distress HEENT: PERRL/EOMI, normal ENT inspection Respiratory: no respiratory distress, no accessory muscle use Hips: bilateral hip non-tender, bilateral hip normal inspection, bilateral hip normal range of motion Legs: bilateral leg other (bilateral lower extremity slightly erythematous right greater than left slightly edematous right greater than left the right being about +1 pitting edema. She has warm feet with a strong dorsalis pedis pulse area given the negative d-dimer yesterday we'll treat this as a cellulitis with a shot of Rocephin dose of Lasix for the swelling that is very bothersome to her and a prescription for Omnicef) Knees: bilateral knee non-tender, bilateral knee normal inspection, bilateral knee normal range of motion Ankles: bilateral ankle non-tender, bilateral ankle normal inspection, b ilateral ankle normal range of motion Feet: bilateral foot non-tender, bilateral foot normal inspection, bilateral foot normal range of motion Neurologic/Psychiatric: alert, normal mood/affect, oriented x 3 Departure Impression Primary Impression: Cellulitis Qualified Codes: L03.90 - Cellulitis, unspecified Disposition: HOME, SELF-CARE Condition: Stable Departure-Patient Inst. Decision time for Depature: 15:54 Referrals: DANIELLE JUARES DO (PCP/Family) Primary Care Physician Patient Instructions: Cellulitis (Skin Infection), Adult (DC) Add. Discharge Instructions: 1. You had a lab test done yesterday called a d-dimer which was normal. We do not have concern of blood clot because of this. I will put you on an antibiotic. It may take a few days before you notice a lot of improvement. Keep the leg elevated as much as possible return to ER for any severe worsening, fever or other concerns. Call your doctor tomorrow for follow-up. Scripts Cefdinir (Cefdinir) 300 Mg Capsule 300 MG PO BID, #14 CAP Prov: RIKY HELMS APRN 11/11/19 RIKY HELMS APRN Nov 11, 2019 15:56
[2019-11-11] MEDS ORDERED: cefTRIAXone 1,000 MG/2.86 ml vial (IM ONLY) IM SCH (16:00)
[2019-11-11] MEDS ORDERED: LIDOCAINE 1% INJ 20 ML 20 ML VIAL INJ ONE (16:00)
[2019-11-11] MEDS ORDERED: FUROSEMIDE 40 MG (LASIX) TAB PO ONE (16:00)
[2019-11-11 16:35] VITALS: BP 132/81
== END 2019-11-11 16:40 | disposition home or self-care (01) ==
LOC: EDUNIT# 15:36 → ER 15:38
DX: L03.115 Cellulitis of right lower limb (principal); L03.116 Cellulitis of left lower limb; F41.9 Anxiety disorder, unspecified; F31.9 Bipolar disorder, unspecified; Z88.0 Allergy status to penicillin; Z88.5 Allergy status to narcotic agent; Z88.8 Allergy status to other drugs, medicaments and biological substances; Z77.22 Contact with and (suspected) exposure to environmental tobacco smoke (acute) (chronic)
CPT/HCPCS: 99284

== ENCOUNTER 2019-11-12 07:58 | Emergency (ER) | payer MEDICARE, MEDICAID ==
[~2019-11-12] VITALS: Ht 162 cm; Wt 81.6 kg
[~2019-11-12 07:58] MED LIST changes: +CEFD300C3 PO
--- NOTE | 2019-11-12 08:09 | ED Lower Extremity ---
General Chief Complaint: Lower Extremity Stated Complaint: R LEG SWELLING Source: family History of Present Illness Date Seen by Provider: Nov 12, 2019 Time Seen by Provider: 08:09 Initial Comments 49-year-old female presents with right leg swelling. Patient reports she's had the swelling for 3 weeks. This is the patient's third day in a row with an ER visit in her fourth since it started. Patient with negative labs including d- dimer. She presents again today because she was told she needed to come in and get her bilateral lower extremity ultrasounds. Patient reported the same thing yesterday after visiting with telemedicine. She reports that she talk to her regular doctor today and once again that sent in. Patient has no acute changes and no worsening of symptoms. She was started on antibiotic yesterday in case of some overlying cellulitis. 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, altered mental status Home Medications Acyclovir 800 Mg Tablet, 800 MG PO 5XD Prescribed by: JAMIE YUNG on 02/20/19 0453 Cefdinir 300 Mg Capsule, 300 MG PO BID Prescribed by: RIKY HELMS on 11/11/19 1556 Doxycycline Hyclate 100 Mg Tablet, 100 MG PO BID Prescribed by: ELAINE CASAS on 10/24/19 1708 Hydroxyzine HCl 25 Mg Tablet, 25 MG PO Q4H Prescribed by: RIKY HELMS on 11/04/19 1355 Hydroxyzine Pamoate 50 Mg Capsule, 50 MG PO Q6H PRN for PAIN-MODERATE (5-7) Prescribed by: RIKY HELMS on 06/08/19 1527 Methylprednisolone 4 Mg Tab.ds.pk, 4 MG PO UD Prescribed by: GILMA MENDEZ on 01/21/19 0040 Sertraline HCl 100 Mg Tablet, 200 MG PO DAILY, (Reported) TAKES 2 (100MG) TABLETS Simvastatin 40 Mg Tablet, 40 MG PO HS, (Reported) Sulfamethoxazole/Trimethoprim 1 Each Tablet, 1 EACH PO BID Prescribed by: GILMA MENDEZ on 01/21/19 0040 Patient Home Medication List Home Medication List Reviewed: Yes Review of Systems Constitutional: No chills, No fever Cardiovascular: edema (right lower leg) Gastrointestinal: no symptoms reported Musculoskeletal: see HPI Skin: see HPI Past Kncqqsd-Warqor-Cwubdi Hx Past Med/Social Hx: Reviewed Nursing Past Med/Soc Hx Patient Social History Drug of Choice: HAS HX OF LORATAB ABUSE Type Used: Cigarettes 2nd Hand Smoke Exposure: Yes Recent Foreign Travel: No Contact w/Someone Who Travel: No Recent Hopitalizations: No Immunizations Up To Date Tetanus Booster (TDap): More than 5yrs Seasonal Allergies Seasonal Allergies: No Past Medical History Surgeries: Yes (HYST/BSO; LEFT ANKLE RECONSTRUCTION) Appendectomy, Gallbladder, Hysterectomy, Oophorectomy, Orthopedic Respiratory: No Cardiac: No Neurological: No 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 Sexually Transmitted Disease: No HIV/AIDS: No Genitourinary: Yes Bladder Infection, UTI-Chronic Gastrointestinal: Yes Abdominal Hernia, Gastroesophageal Reflux Musculoskeletal: Yes (CHRONIC LEFT FOOT/ANKLE PAIN --S/P LEFT ANKLE RECONSTRUCTION) Degenerate Disk Disease, Fibromyalgia, Chronic Back Pain, Fractures Endocrine: No HEENT: No Loss of Vision: Denies Hearing Impairment: Denies Cancer: No Did You Recieve Any Treatments: No Psychosocial: Yes Sleep Difficulties, Anxiety, PTSD, Bipolar, Depression Integumentary: No Blood Disorders: No Adverse Reaction/Blood Tranf: No Family Medical History Cancer No Pertinent Family Hx Physical Exam Vital Signs Vital Signs - First Documented 11/12/19 08:03 Temp 36.9 Pulse 86 Resp 16 B/P (MAP) 132/86 (101) Pulse Ox 94 O2 Delivery Room Air Capillary Refill : Height, Weight, BMI Height: 5'4.00" Weight: 175lbs. 6.4oz. 79.485403rd; 32.00 BMI Method:Stated General Appearance: WD/WN, no apparent distress Cardiovascular: normal peripheral pulses, regular rate, rhythm Respiratory: lungs clear, normal breath sounds Gastrointestinal: non tender, soft Legs: right leg swelling (2+ edema) Neurologic/Psychiatric: no motor/sensory deficits, alert Skin: other (mild erythema right lower leg) Progress/Results/Core Measures Results/Orders My Orders Orders - BENTON AMATO DO Us Venous Lower Ext [place] (11/12/19 08:13) Urine Bedside (11/12/19 09:14) Vital Signs/I&O 11/12/19 08:03 Temp 36.9 Pulse 86 Resp 16 B/P (MAP) 132/86 (101) Pulse Ox 94 O2 Delivery Room Air Progress Progress Note : Time: 09:25 Progress Note Patient with negative bilateral lower extremity venous Doppler. Discussed with patient the need to follow-up with her primary care provider for management. Patient should continue already prescribed and recommended management from her previous ER visits. Patient discharged home in stable condition Departure Impression Primary Impression: Edema of right lower extremity due to peripheral venous insufficiency Disposition: HOME, SELF-CARE Condition: Stable Departure-Patient Inst. Referrals: DANIELLE JUARES DO (PCP/Family) Primary Care Physician Patient Instructions: Dependent Edema (DC) Add. Discharge Instructions: Follow-up with your primary care provider in the next 2-3 days for continuation of care and further management Emergency department focuses on treating and ruling out life-threatening diseases. Whenever possible, a diagnosis is given. However, most patients are given an impression based on their history, physical exam, and workup during your brief time in the ER. Information about probable diagnosis and other educ ational material has been provided. Please take the time to read and understand this information. It is very important that you follow up with a physician as discussed during the visit today. Failure to adhere to your follow-up instructions may lead to severe disability, injury, or so please make sure to keep your appointments or obtain one as requested. Please keep in mind the emergency department is not designed to your primary care or "family doctor" and nonurgent issues are best evaluated by an outpatient physician All discharge instructions reviewed with patient and/or family. Voiced understanding. BENTON AMATO DO Nov 12, 2019 08:09
[2019-11-12] MEDS ORDERED: KETOROLAC 30 MG/ML VIAL IM STA (09:14)
[2019-11-12] MEDS ORDERED: ORPHENADRINE 60 MG/2 ML (NORFLEX) AMP IM STA (09:14)
[2019-11-12 09:30] VITALS: BP 126/84
--- NOTE | 2019-11-12 09:32 | Diagnostic Imaging Report ---
PROCEDURE: US Venous Lower Ext [place]. TECHNIQUE: Multiple real-time grayscale images were obtained over the lower extremities in various projections, bilaterally. Additional duplex Doppler and color Doppler images were also obtained. INDICATION: Lower extremity pain and edema EXAMINATIONS: Both grayscale and color Doppler imaging of the deep veins of the lower extremities were performed with waveform analysis. FINDINGS: There is no intraluminal filling defect. Normal continuous flow is seen throughout the deep venous systems of both legs, and there is normal response to augmentation. The deep veins compress normally. IMPRESSION: No ultrasound evidence of deep venous thrombosis in either lower extremity. Dictated by: Dictated on workstation # [id number]
== END 2019-11-12 09:30 | disposition home or self-care (01) ==
LOC: EDUNIT# 07:58 → ER 07:59
DX: I73.9 Peripheral vascular disease, unspecified (principal); R60.0 Localized edema; K21.9 Gastro-esophageal reflux disease without esophagitis; M79.7 Fibromyalgia; M54.9 Dorsalgia, unspecified; G89.29 Other chronic pain; F41.9 Anxiety disorder, unspecified; F43.10 Post-traumatic stress disorder, unspecified; F31.9 Bipolar disorder, unspecified; Z79.899 Other long term (current) drug therapy; Z88.1 Allergy status to other antibiotic agents; Z88.5 Allergy status to narcotic agent
CPT/HCPCS: 93970

== ENCOUNTER → 2019-12-26 | Outpatient (CLI) | payer MEDICARE, MEDICAID ==
--- NOTE | 2019-12-26 14:55 | Diagnostic Imaging Report ---
PROCEDURE: US Venous Lower Ext [place]. TECHNIQUE: Multiple real-time grayscale images were obtained over the lower extremities in various projections, bilaterally. Additional duplex Doppler and color Doppler images were also obtained. INDICATION: Lower extremity edema. EXAMINATIONS: Both grayscale and color Doppler imaging of the deep veins of the lower extremities were performed with waveform analysis. FINDINGS: There is no intraluminal filling defect. Normal continuous flow is seen throughout the deep venous systems of both legs, and there is normal response to augmentation. The deep veins compress normally. IMPRESSION: No ultrasound evidence of deep venous thrombosis in either lower extremity. Dictated by: Dictated on workstation # [id number]
== END ==
LOC: RAD 13:13
PROVIDERS: ATTEND Emergency Medicine
DX: R22.43 Localized swelling, mass and lump, lower limb, bilateral (principal)
CPT/HCPCS: 93970

== ENCOUNTER 2020-01-24 21:06 | Inpatient (IN) | payer MEDICARE, MEDICAID ==
[~2020-01-24] VITALS: Ht 165.1 cm; Wt 89.6 kg
[2020-01-24] MEDS ORDERED: LACTATED RINGERS 1,000 ML IV ONE (21:16)
--- NOTE | 2020-01-24 21:25 | NUR ---
Spoke with patient's son, Guzman Osborn to update on pt condition. Son asking to come visit patient, visitor policy discussed w/ son. Son stated understanding and asked for updates to be given and to speak with mother on phone. Phone taken to room for son to speak with patient, patient grabbed phone out of this RNs hand and threw phone across the room. This RN called son back, son reports pt has history of "mental breakdowns" and reports this has happened before. Son requested additional updates to be given throughout pt stay. Son's phone number passed on to care team for updates. Son's number is [phone].
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
[2020-01-24] MEDS ORDERED: OLANZapine 5 MG ODT (ZyPREXA ZYDIS) PO ONE ×2 (21:30→22:30)
[2020-01-24 21:33] LABS: BASOPHILS % (AUTO) 0 % (0-10); EOSINOPHILS # (AUTO) 0.1 10^3/uL (0.0-0.3); EOSINOPHILS % (AUTO) 1 % (0-10); HEMATOCRIT 42 % (35-52); HEMOGLOBIN 14.1 G/DL (11.5-16.0); LYMPHOCYTES # (AUTO) 1.6 X 10^3 (1.0-4.0); LYMPHOCYTES % (AUTO) 19 % (12-44); MEAN CORPUSCULAR HEMOGLOBIN 30 PG (25-34); MEAN CORPUSCULAR HGB CONC 33 G/DL (32-36); MEAN CORPUSCULAR VOLUME 90 FL (80-99); MONOCYTES # (AUTO) 0.6 X 10^3 (0.0-1.0); MONOCYTES % (AUTO) 7 % (0-12); NEUTROPHILS # (AUTO) 5.9 X 10^3 (1.8-7.8); NEUTROPHILS % (AUTO) 72 % (42-75); PLATELET COUNT 188 10^3/uL (130-400); RED CELL DISTRIBUTION WIDTH 13.4 % (10.0-14.5); WHITE BLOOD COUNT 8.2 10^3/uL (4.3-11.0)
[2020-01-24] MEDS ORDERED: diphenhydrAMINE 50 MG/ML INJ (BENADRYL) ONE (21:37)
[2020-01-24] MEDS ORDERED: HALOPERIDOL 5 MG/ML (HALDOL) VIAL ONE (21:37)
[2020-01-24] MEDS ORDERED: LORazepam INJ 2 MG/ML (ATIVAN) VIAL ONE (21:38)
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
[2020-01-24] MEDS ORDERED: HALOPERIDOL 5 MG/ML (HALDOL) VIAL IM ONE ×2 (21:45→22:15)
[2020-01-24] MEDS ORDERED: diphenhydrAMINE 50 MG/ML INJ (BENADRYL) IM ONE ×2 (21:45→22:15)
[2020-01-24] MEDS ORDERED: LORazepam INJ 2 MG/ML (ATIVAN) VIAL IM ONE ×2 (21:45→22:15)
[2020-01-24 21:46] LABS: CHLORIDE 106 MMOL/L (98-107); POTASSIUM 3.1 MMOL/L (3.6-5.0); SODIUM 141 MMOL/L (135-145)
[2020-01-24 21:47] LABS: CALCIUM 9.7 MG/DL (8.5-10.1); PROTHROMBIN TIME PATIENT 13.8 SEC (12.2-14.7)
[2020-01-24 21:48] LABS: GLUCOSE 163 MG/DL (70-105)
[2020-01-24 21:49] LABS: CARBON DIOXIDE 21 MMOL/L (21-32); TOTAL PROTEIN 7.1 GM/DL (6.4-8.2)
[2020-01-24 21:50] LABS: BILIRUBIN,TOTAL 0.5 MG/DL (0.1-1.0)
[2020-01-24 21:52] LABS: ALKALINE PHOSPHATASE 133 U/L (40-136); GFR ESTIMATED > 60
[2020-01-24 21:54] LABS: ACETAMINOPHEN < 10 UG/ML (10-30); BUN/CREATININE RATIO 15
[2020-01-24 21:55] LABS: ALANINE AMINOTRANSFERASE 15 U/L (0-55); SALICYLATE < 5.0 MG/DL (5.0-20.0)
[2020-01-24 21:56] LABS: MAGNESIUM 1.8 MG/DL (1.6-2.4)
[2020-01-24 22:16] LABS: TSH (THYROID ANALYZER) 0.63 UIU/ML (0.35-4.94)
--- NOTE | 2020-01-24 22:42 | NUR ---
Pt continues to thrash around in bed, not tolerating vital signs being taken. Security remains in room as patient continues to try to elope out of room.
--- NOTE | 2020-01-24 22:58 | NUR ---
Pt resting in bed, security at door of patient's room. Pt still having occasional outbursts of yelling.
[2020-01-24] MEDS ORDERED: diphenhydrAMINE 50 MG/ML INJ (BENADRYL) IVP ONE (23:00)
[2020-01-24 23:30] LABS: BILIRUBIN,URINE 1+ (NEGATIVE); CLARITY,URINE SL CLOUDY; COLOR,URINE YELLOW; GLUCOSE, URINE (UA) NEGATIVE (NEGATIVE); KETONES,URINE 2+ (NEGATIVE); LEUKOCYTE ESTERASE ,URINE NEGATIVE (NEGATIVE); NITRITE,URINE NEGATIVE (NEGATIVE); PH,URINE 5.5 (5-9); PROTEIN,URINE NEGATIVE (NEGATIVE)
[2020-01-24 23:47] LABS: AMPHETAMINE SCREEN, URINE NEGATIVE (NEGATIVE); BACTERIA,URINE NEGATIVE /HPF; BARBITURATE SCREEN URINE NEGATIVE (NEGATIVE); BENZODIAZEPINES SCREEN URINE NEGATIVE (NEGATIVE); CANNABINOID SCREEN, URINE NEGATIVE (NEGATIVE); COCAINE SCREEN URINE NEGATIVE (NEGATIVE); METHADONE STAT NEGATIVE (NEGATIVE); METHAMPHETAMINE SCREEN URINE S NEGATIVE (NEGATIVE); OPIATE SCREEN URINE NEGATIVE (NEGATIVE); OXYCODONE STAT NEGATIVE (NEGATIVE); SQUAMOUS EPITHELIAL CELL,UR 0-2 /HPF; TRICYCLIC ANTIDEPRESSANTS SCRE NEGATIVE (NEGATIVE); WBC,URINE RARE /HPF
[2020-01-24 23:48] LABS: PROPOXYPHENE STAT NEGATIVE (NEGATIVE)
[2020-01-25] VITALS (9 sets, daily range): BP systolic 107–160; BP diastolic 72–98
--- NOTE | 2020-01-25 00:05 | NUR ---
PT CONTINUES TO ATTEMPT TO GET OUT OF BED. PT PLACES SELF BACK IN BED WHEN ASSISTED. SECURITY STILL IN ROOM.
[2020-01-25] MEDS ORDERED: ZIPRASIDONE 20 MG INJ (GEODON) VIAL IM ONE ×2 (00:15→04:00)
[2020-01-25] MEDS ORDERED: WATER (STERILE) FOR INJECTION 10 ML ONE (00:16)
--- NOTE | 2020-01-25 02:12 | NUR ---
[facility] AND [facility] CONTACTED AND BOTH CONFIRMED THAT THEY HAVE RECEIVED ALL NEEDED PT INFORMATION. BOTH STATE THAT THEY WILL RETURN CALL IF THEY NEED FURTHER INFORMATION AND IF THEY HAVE BED PLACEMENT.
--- NOTE | 2020-01-25 03:14 | NUR ---
PT HAS ATTEMPTED TO EXIT THE ED. PT WAS REDIRECTED AND RETURNED TO ROOM.
--- NOTE | 2020-01-25 03:14 | NUR ---
PT GIVEN WARM BLANKET AND THE ROOM LIGHTS WERE LOWERED TO ASSIST THE PT IN GETTING SOME REST. PCCT SITTING IN ROOM WITH PT.
--- NOTE | 2020-01-25 03:38 | NUR ---
PT INFORMATION FAXED TO [facility].
--- NOTE | 2020-01-25 03:50 | ED Psychosocial ---
General Chief Complaint: Psych/Social Disorder Stated Complaint: PSYCHOSIS Nursing Triage Note: Pt to ED via EMS. EMS reports family called stating pt has been experiencing psychosis for two days. Pt has periods of being uncooperative and periods of following commands. Pt stating, "The whole world is going to . We've got two years. They're ." Source: EMS, old records Exam Limitations: clinical condition (PT UNABLE TO ANSWER ANY QUESTIONS) (GILMA MENDEZ DO) History of Present Illness Date Seen by Provider: Jan 24, 2020 Time Seen by Provider: 21:10 Initial Comments PT ARRIVES VIA EMS FROM HOME EMS REPORT THAT DAUGHTER CALLED THEM BECAUSE PT HAS HAD PSYCHOTIC BEHAVIOR FOR THE LAST 2 DAYS THIS IS A CHRONIC, RECURRING PROBLEM FOR PT, AND MANY TIMES HAS BEEN RELATED TO PT NOT TAKING HER MEDICATIONS. IT IS UNKNOWN IF/WHEN PT LAST TOOK ANY MEDICATIONS, AND IT IS UNKNOWN WHAT MEDICATIONS SHE IS CURRENTLY SUPPOSED TO BE TAKING PT IS UNCOOPERATIVE AND IS UNABLE TO ANSWER ANY QUESTIONS PT REPEATS VARIOUS WORDS AND PHRASES IN RAPID SUCCESSION MULTIPLE TIMES--COMPLETELY NON-SENSICAL ON ARRIVAL, PT IS SAYING REPEATEDLY AND VERY RAPIDLY "PUT IT DOWN" "I'M " "THEY'RE " "THE WORLD'S ANYWAYS" "THE HEART POPS" "I DIDN'T " "HELLO" "NO" AND VARIOUS OTHER WORDS AND PHRASES. NO OTHER INFORMATION IS OBTAINABLE AT THIS TIME ALL PAST MEDICAL HISTORY IS FROM OLD RECORDS. 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, altered mental status Home Medications Acyclovir 800 Mg Tablet, 800 MG PO 5XD Prescribed by: JAMIE YUNG on 02/20/19 0453 Cefdinir 300 Mg Capsule, 300 MG PO BID Prescribed by: RIKY HELMS on 11/11/19 1556 Doxycycline Hyclate 100 Mg Tablet, 100 MG PO BID Prescribed by: ELAINE CASAS on 10/24/19 1708 Hydroxyzine HCl 25 Mg Tablet, 25 MG PO Q4H Prescribed by: RIKY HELMS on 11/04/19 1355 Hydroxyzine Pamoate 50 Mg Capsule, 50 MG PO Q6H PRN for PAIN-MODERATE (5-7) Prescribed by: RIKY HELMS on 06/08/19 1527 Methylprednisolone 4 Mg Tab.ds.pk, 4 MG PO UD Prescribed by: GILMA MENDEZ on 01/21/19 0040 Sertraline HCl 100 Mg Tablet, 200 MG PO DAILY, (Reported) TAKES 2 (100MG) TABLETS Simvastatin 40 Mg Tablet, 40 MG PO HS, (Reported) Sulfamethoxazole/Trimethoprim 1 Each Tablet, 1 EACH PO BID Prescribed by: GILMA MENDEZ on 01/21/19 0040 Patient Home Medication List Home Medication List Reviewed: Yes (AALIYAH VALDEZ) Review of Systems Constitutional: other (UNABLE TO OBTAIN) (GILMA MENDEZ DO) Past Qksvjhh-Ygxaom-Xpyfqe Hx Patient Social History Alcohol Use: Denies Use Recreational Drug Use: Yes (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) Drug of Choice: HX OF OPIATE ABUSE-ON 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 Smoking Status: Current Everyday Smoker Type Used: Cigarettes 2nd Hand Smoke Exposure: Yes Recent Foreign Travel: No Contact w/Someone Who Travel: No Recent Infectious Disease Expo: No Recent Hopitalizations: No (GILMA MENDEZ DO) Immunizations Up To Date Tetanus Booster (TDap): More than 5yrs (GILMA MENDEZ DO) Seasonal Allergies Seasonal Allergies: No (GILMA MENDEZ DO) Past Medical History Surgeries: Yes (HYST/BSO; LEFT ANKLE RECONSTRUCTION) Appendectomy, Gallbladder, Hysterectomy, Oophorectomy, Orthopedic Respiratory: No Cardiac: No Neurological: No 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 Disorders: 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 ) Sleep Difficulties, Anxiety, PTSD, Bipolar, Depression Integumentary: No Blood Disorders: No Adverse Reaction/Blood Tranf: No (GILMA MENDEZ DO) Family Medical History Cancer No Pertinent Family Hx (GILMA MENDEZ DO) Physical Exam Vital Signs - First Documented 01/24/20 21:06 Temp 37.2 Pulse 110 Resp 24 B/P (MAP) 152/77 (102) Pulse Ox 98 O2 Delivery Room Air (AALIYAH VALDEZ) Capillary Refill : Less Than 3 Seconds (GILMA MENDEZ DO) Height, Weight, BMI Height: 5'4.00" Weight: 175lbs. 6.4oz. [id number]; 29.00 BMI Method:Stated General Appearance: obese, other (PT OUT OF CONTROL, VERY UNCOOPERATIVE, SCREAMING, REPEATING WORDS AND PHRASES IN RAPID SUCCESSION MULTIPLE TIMES--COMPLETLY NON-SENSICAL. PT CANNOT ANSWER EVEN SIMPLE YES/NO QUESTIONS, OR FOLLOW COMMANDS. ) HEENT: other (POOR DENTITION) Neck: normal inspection Respiratory: normal breath sounds, no respiratory distress, no accessory muscle use Cardiovascular: normal peripheral pulses, regular rate, rhythm, no murmur Peripheral Pulses: 2+ Dorsalis Pedis (R), 2+ Left Dors-Pedis (L), 2+ Radial Pulses (R), 2+ Radial Pulses (L) Gastrointestinal: non tender, soft Extremities: normal capillary refill, pedal edema (1+BILATERALLY. MINOR ABRASION TO LEFT KNEE--BARELY BROKE SKIN. NO BLEEDING. NO APPARENT TENDERNESS TO KNEE AND PT IS ABLE TO AMBULATE) Neurologic/Psychiatric: no motor/sensory deficits (GROSSLY INTACT), alert, disoriented x 3, other (BEHAVIOR ABOVE. ) Appearance/Memory: disheveled, impaired insight Behavior/Eye Contact: increased rate of speech, belligerent, compulsive, uncooperative, other (NO SLURRED SPEECH) Thoughts/Hallucinations: other (UNABLE TO DETERMINE ) Skin: normal color, warm/dry; No ecchymosis (GILMA MENDEZ DO) Progress/Results/Core Measures Results/Orders Lab Results Laboratory Tests Test 01/24/20 11:23 01/24/20 21:25 Range/Units Urine Color YELLOW Urine Clarity SL CLOUDY Urine pH 5.5 5-9 Urine Specific Hassell >=1.030 1.016-1.022 Urine Protein NEGATIVE NEGATIVE Urine Glucose (UA) NEGATIVE NEGATIVE Urine Ketones 2+ H NEGATIVE Urine Nitrite NEGATIVE NEGATIVE Urine Bilirubin 1+ H NEGATIVE Urine Urobilinogen 0.2 < = 1.0 MG/DL Urine Leukocyte Esterase NEGATIVE NEGATIVE Urine RBC (Auto) 1+ H NEGATIVE Urine RBC 5-10 H /HPF Urine WBC RARE /HPF Urine Squamous Epithelial Cells 0-2 /HPF Urine Crystals NONE /LPF Urine Bacteria NEGATIVE /HPF Urine Casts NONE /LPF Urine Mucus MODERATE H /LPF Urine Culture Indicated NO Urine Opiates Screen NEGATIVE NEGATIVE Urine Oxycodone Screen NEGATIVE NEGATIVE Urine Methadone Screen NEGATIVE NEGATIVE Urine Propoxyphene Screen NEGATIVE NEGATIVE Urine Barbiturates Screen NEGATIVE NEGATIVE Ur Tricyclic Antidepressants Screen NEGATIVE NEGATIVE Urine Phencyclidine Screen NEGATIVE NEGATIVE Urine Amphetamines Screen NEGATIVE NEGATIVE Urine Methamphetamines Screen NEGATIVE NEGATIVE Urine Benzodiazepines Screen NEGATIVE NEGATIVE Urine Cocaine Screen NEGATIVE NEGATIVE Urine Cannabinoids Screen NEGATIVE NEGATIVE White Blood Count 8.2 4.3-11.0 10^3/uL Red Blood Count 4.69 4.35-5.85 10^6/uL Hemoglobin 14.1 11.5-16.0 G/DL Hematocrit 42 35-52 % Mean Corpuscular Volume 90 80-99 FL Mean Corpuscular Hemoglobin 30 25-34 PG Mean Corpuscular Hemoglobin Concent 33 32-36 G/DL Red Cell Distribution Width 13.4 10.0-14.5 % Platelet Count 188 130-400 10^3/uL Mean Platelet Volume 11.0 H 7.4-10.4 FL Neutrophils (%) (Auto) 72 42-75 % Lymphocytes (%) (Auto) 19 12-44 % Monocytes (%) (Auto) 7 0-12 % Eosinophils (%) (Auto) 1 0-10 % Basophils (%) (Auto) 0 0-10 % Neutrophils # (Auto) 5.9 1.8-7.8 X 10^3 Lymphocytes # (Auto) 1.6 1.0-4.0 X 10^3 Monocytes # (Auto) 0.6 0.0-1.0 X 10^3 Eosinophils # (Auto) 0.1 0.0-0.3 10^3/uL Basophils # (Auto) 0.0 0.0-0.1 10^3/uL Prothrombin Time 13.8 12.2-14.7 SEC INR Comment 1.0 0.8-1.4 Activated Partial Thromboplast Time 32 24-35 SEC Sodium Level 141 135-145 MMOL/L Potassium Level 3.1 L 3.6-5.0 MMOL/L Chloride Level 106 98-107 MMOL/L Carbon Dioxide Level 21 21-32 MMOL/L Anion Gap 14 5-14 MMOL/L Blood Urea Nitrogen 12 7-18 MG/DL Creatinine 0.80 0.60-1.30 MG/DL Estimat Glomerular Filtration Rate > 60 BUN/Creatinine Ratio 15 Glucose Level 163 H 70-105 MG/DL Calcium Level 9.7 8.5-10.1 MG/DL Corrected Calcium 9.7 8.5-10.1 MG/DL Magnesium Level 1.8 1.6-2.4 MG/DL Total Bilirubin 0.5 0.1-1.0 MG/DL Aspartate Amino Transf (AST/SGOT) 22 5-34 U/L Alanine Aminotransferase (ALT/SGPT) 15 0-55 U/L Alkaline Phosphatase 133 40-136 U/L Total Protein 7.1 6.4-8.2 GM/DL Albumin 4.0 3.2-4.5 GM/DL TSH [place] Testing 0.63 0.35-4.94 UIU/ML Serum Test, Qualitative NEGATIVE NEGATIVE Salicylates Level < 5.0 L 5.0-20.0 MG/DL Acetaminophen Level < 10 L 10-30 UG/ML Serum Alcohol < 10 <10 MG/DL (AALIYAH VALDEZ) My Orders Orders - AALIYAH VALDEZ General/Regular (01/25/20 Breakfast) Haloperidol Injection (Haldol Injectio (01/25/20 10:15) Lorazepam Injection (Ativan Injection) (01/25/20 10:15) Diphenhydramine Injection (Benadryl Inje (01/25/20 10:15) Dexmedetomidine 250 Ml Drip (Precedex Dr (01/25/20 11:45) Ns Iv 1000 Ml (Sodium Chloride 0.9%) (01/25/20 12:03) Ed Iv/Invasive Line Start (01/25/20 12:08) Ns Iv 1000 Ml (Sodium Chloride 0.9%) (01/25/20 12:08) (AALIYAH VALDEZ) Medications Given in ED Current Medications Medications Dose Ordered Sig/Sim Route Start Time Stop Time Status Last Admin Dose Admin Diphenhydramine HCl 25 mg ONCE ONCE IVP 01/25/20 10:15 01/25/20 10:16 DC 01/25/20 11:43 25 MG Diphenhydramine HCl 50 mg ONCE ONCE IM 01/25/20 04:00 01/25/20 04:01 DC 01/25/20 04:04 50 MG Diphenhydramine HCl 50 mg ONCE ONCE IVP 01/25/20 04:30 01/25/20 04:32 DC 01/25/20 04:36 50 MG Haloperidol Lactate 5 mg ONCE ONCE IM 01/25/20 10:15 01/25/20 10:16 DC 01/25/20 11:43 5 MG Haloperidol Lactate 5 mg ONCE ONCE IV 01/25/20 04:30 01/25/20 04:32 DC 01/25/20 04:36 5 MG Lorazepam 2 mg ONCE ONCE IM 01/25/20 04:00 01/25/20 04:01 DC 01/25/20 04:04 2 MG Lorazepam 2 mg ONCE ONCE IVP 01/25/20 04:30 01/25/20 04:32 DC 01/25/20 04:36 2 MG Lorazepam 2 mg ONCE ONCE IVP 01/25/20 10:15 01/25/20 10:16 DC 01/25/20 10:23 2 MG Ziprasidone 10 mg ONCE ONCE IM 01/25/20 04:00 01/25/20 04:01 DC 01/25/20 04:05 10 MG (AALIYAH VALDEZ) Vital Signs/I&O (AALIYAH VALDEZ) Blood Pressure Mean: 102 Progress Progress Note : Progress Note PT IMMEDIATELY RIPPED OUT THE IV SOON IT WAS PLACED PT YELLING AND SCREAMING NON-SENSICALLY FOR A LARGE PART OF ER STAY, AND GENERALLY BEING VERY UNCOOPERATIVE. PT WITH MULTIPLE ELOPEMENT ATTEMPTS, INCLUDING RUNNING DOWN THE ROAD, WEARING ONLY HER SHORTS, AND EVENTUALLY WAS PLACED IN 4 POINT LEATHER RESTRAINTS PT WAS GIVEN A MULTITUDE OF MEDICATIONS, INCLUDING MULTIPLE DOSES OF HALDOL, ATIVAN, BENADRYL, ZYPREXA AND GEODON IV WAS EVENTUALLY REPLACED AND PT WAS GIVEN IV FLUIDS 0630--CARE TURNED OVER TO DR. VALDEZ, PENDING ACCEPTANCE TO PSYCH UNIT / HAVING PSYCH SCREENER SEE PT FOR INVOLUNTARY ADMIT. (GILMA MENDEZ DO) Progress Note #1: Time: 08:09 Progress Note Assume care of the patient at shift change. Patient sleeping until now when she has been doing some muttering to herself. We did interview the patient and she said she would be more cooperative and is a little more cognizant. Nursing offered her breakfast which she accepted. We will downgrade her 4 point restraints and provide her breakfast and a sitter. Plan is still to get the screener to come place her for involuntary psych hold. Spoke to [facility] and [phone] and they were unable to get a hold of the screener and said the knee screener came on duty at 8:00. Left a voicemail with [facility]. Progress Note #2: Time: 08:32 Progress Note Called the saves line and they advised that a screener, Alexandre has been assigned and they will touch bases with him. Progress Note #3: Time: 10:16 Progress Note Alexandre agrees the patient needs a involuntary assignment however he is told that [facility] is not taking any admissions until Tuesday so he will get the paperw ork put together and would recommend admission until then. Progress Note #4: Time: 10:25 Progress Note : Spoke to Dr. Brown. He wanted to attempt to get the patient placed with either [place] or another place. There is a call expected by 2:00 this afternoon from [place]. Patient is yelling loudly and had to be placed back into 4-point restraints. Process drip was initiated Progress Note #5: Time: 14:10 Progress Note Patient has a sitter and Precedex drip going which has helped immensely. She is much more calm. She's been asked several times if she wants something to drink or eat. She did eat breakfast and has had a few cups of water but does not want anything presently. She still is muttering nonsensical phrases about iodine and go back in the barn. She also was yelling out loud "Covid" patient has significant improved since starting Precedex drip. 4 straight restraints have been continued for her personal safety. She has been checked on multiple times every hour by staff including this provider. Her restraints are routinely taken off to allow her to flex all under direct supervision and get a drink of water. (AALIYAH VALDEZ) Initial ECG Impression Date: Jan 25, 2020 Initial ECG Impression Time: 23:09 Initial ECG Rate: 88 Initial ECG Rhythm: Normal Sinus Initial ECG Intervals: Normal Initial ECG Impression: Normal Comment Normal sinus rhythm without clinically relevant ST elevation or depression. (AALIYAH VALDEZ) Departure Communication (Admissions) Family Conversation 0351--SPOKE WITH PT'S SON ON THE PHONE. UPDATED HIM ON PT'S CONDITION AND ADVISED HIM THAT PT COULD NOT GO HOME AT THIS TIME, SHE IS STILL EXHIBITING PSYCHOTIC BEHAVIOR, REPEATEDLY ATTEMPTING TO ELOPE, AND IS NOT SAFE FOR HER TO GO HOME NO ICU BEDS AVAILABLE HERE--ON [facility], AND NO SITTER AVAILABLE. CANNOT KEEP/ADMIT PT HERE IN HOSPITAL AT THIS TIME. 2304--CALLED [facility]--NO BEDS 2304--CALLED [facility]-LEFT MESSAGE ON MACHINE 2308--CALLED [facility]--HAVE FEMALE BED, WILL FAX THEM PT'S INFORMATION 2354--[facility]--HAVE FEMALE BED, WILL FAX THEM PT'S INFORMATION 0325--CALLED [facility]--NO LONGER HAVE ANY BEDS. PT PLACED ON WAIT LIST 0327--CALLED [facility] --HAVE BED, WILL FAX PT'S INFO RMATION. 0429--[facility], BUT UNABLE TO TAKE PT DUE TO HER BEHAVIOR--PT HAS TO BE VOLUNTARY, AND BE ALERT AND ORIENTED AND ABLE TO COMMUNICATE, ETC. 0435--CALLED [facility]. WILL CALL BACK 0454--CALLED [facility]--THEY DO HAVE BEDS, BUT "DOCTOR NEEDS TO REVIEW THE RECORDS LATER THIS MORNING" BEFORE THEY CAN DETERMINE IF THEY WILL ACCEPT THE PT OR NOT. 0458--CALLED [facility]--MESSAGE LEFT 0501--CALLED --HAVE BEDS, BUT THEY CANNOT ACCEPT PT DUE TO THEIR REQUIREMENT OF NEGATIVE COVID-19 TEST PERFORMED HERE, PRIOR TO BEING ACCEPTED TO THEIR FACILITY--TURNAROUND TIME FOR COVID TESTING HERE IS 24-72 HOURS. 0525--CALLED [facility]--THEY DID NOT RECEIVE ANY OF PT'S INFORMATION, WILL RE-FAX. 0533--CALLED [facility]--NO BEDS, AND 38 PATIENTS ON WAITING LIST. 0555--[facility] CALLED. THEY CANNOT ACCEPT PT DUE TO PT'S BEHAVIOR. PT NEEDS TO BE VOLUNTARY, ALERT AND ORIENTED AND ABLE TO COMMUNICATE, ETC. 0600--CALLED [facility] AGA[facility]--THEY WILL CALL SCREENER 0605--[facility] CALLED BACK --"WORKING ON TRYING TO GET A SCREENER" RN ALSO SPOKE WITH SOMEONE FROM [facility], WHO NOW SAYS THAT SCREENER MAY NOT BE AVAILABLE UNTIL AFTER 0800--THEY WILL CALL BACK. (GILMA MENDEZ DO) Impression Primary Impression: Acute psychosis Disposition: ADMITTED INPATIENT Condition: Stable Admissions Decision to Admit Reason: Admit from ER (General) Decision to Admit/Date: Jan 25, 2020 Time/Decision to Admit Time: 09:00 (AALIYAH VALDEZ) Departure-Patient Inst. Referrals: DANIELLE JUARES DO (PCP/Family) Primary Care Physician GILMA MENDEZ DO Jan 25, 2020 03:50 AALIYAH VALDEZ Jan 25, 2020 08:14
[2020-01-25] MEDS ORDERED: diphenhydrAMINE 50 MG/ML INJ (BENADRYL) IM ONE (04:00)
[2020-01-25] MEDS ORDERED: LORazepam INJ 2 MG/ML (ATIVAN) VIAL IM ONE (04:00)
[2020-01-25] MEDS ORDERED: LACTATED RINGERS 1,000 ML IV ONE (04:27)
[2020-01-25] MEDS ORDERED: LORazepam INJ 2 MG/ML (ATIVAN) VIAL IVP ONE ×2 (04:30→10:15)
[2020-01-25] MEDS ORDERED: diphenhydrAMINE 50 MG/ML INJ (BENADRYL) IVP ONE ×2 (04:30→10:15)
[2020-01-25] MEDS ORDERED: HALOPERIDOL 5 MG/ML (HALDOL) VIAL IV ONE (04:30)
--- NOTE | 2020-01-25 04:30 | NUR ---
PT RAN FROM ROOM AND EXITED INTO THE WAITING ROOM. THIS RN, 2ND AND 3RD RN, AND PROVIDER FOLLOWED AND STOPPED THE PT IN THE WAITING ROOM. PT BEGAN PULLING HER PT GOWN OFF FROM THE FRONT, TEARING THE GOWN AND CAUSING REDDENED AREAS TO THE PT BACK FROM HER PULLING AT GOWN. PT MANAGED TO PULL THE GOWN OFF AND MADE HERSELF TOPLESS IN THE WAITING ROOM. PT REFUSED TO ALLOW GOWN TO BE PLACED ON HER TO COVER HERSELF UP. PT SAT HERSELF DOWN ON THE FLOOR AND STATED THAT SHE IS NOT MOVING. A WHEELCHAIR WAS BROUGHT TO THE WAITING ROOM AND PT WAS ASSISTED INTO THE WHEELCHAIR AND RETURNED TO PT ROOM. PT PLACED HERSELF BACK INTO BED AND LEATHER RESTRAINTS WERE APPLIED PER PROVIDER.
--- NOTE | 2020-01-25 05:01 | NUR ---
[facility] CALL[facility]. THIS RN INFORMED THAT SCREENER WILL RETURN CALL.
[2020-01-25] MEDS: D5 1/2 NS W/KCL 20 MEQ/L 1,000 ML IV SCH ×2 (05:50→12:11)
--- NOTE | 2020-01-25 06:09 | NUR ---
PT resting in bed, wrist and ankle restraints still in place. Cap refill <3 sec in all extremities.
--- NOTE | 2020-01-25 06:20 | NUR ---
Pt's admission status currently: waiting on [facility] to come and assess pt for involuntary admission to psych facility.
--- NOTE | 2020-01-25 07:59 | NUR ---
PT OFFERED ICE CHIPS AT THIS TIME. PT OFFERED BREAKFAST AND PATIENT ACCEPTED. BREAKFAST TRAY ORDERED.
--- NOTE | 2020-01-25 08:30 | NUR ---
WRIST RESTRAINTS REMOVED AT THIS TIME. PT SAT UP IN BED AND ENCOURAGE TO EAT AND DRINK. PT TOOK WATER CUP AND DUMPED ON THE FLOOR. PT OFFERED BREAKFAST TRAY, BUT DID NOT MAKE ATTEMPT TO EAT. [facility] HERE TO SCREEN PT AT THIS TIME ALSO. AFTER TALKING WITH SCREENER, PT IS RESTING COMFORTABLY IN BED WITH EYES CLOSED. PT HAS SITTER AT BEDSIDE.
--- NOTE | 2020-01-25 09:40 | NUR ---
ATTEMPTED TO TAKE KATINA OFF OF PT AT THIS TIME. PT IS UNCOOPERATIVE AND TRIED TO PULL OUT LOBO. PT WOULD NOT BE REDIRECTED BY STAFF. DR VALDEZ NOTIFIED.
[2020-01-25] MEDS ORDERED: HALOPERIDOL 5 MG/ML (HALDOL) VIAL IM ONE (10:15)
[2020-01-25] MEDS ORDERED: DexMEDEtomidine 250 ML DRIP 250 ML IV SCH (11:45)
[2020-01-25] MEDS ORDERED: NS IV 1000 ML 1,000 ML ONE (12:03)
[2020-01-25] MEDS ORDERED: NS IV 1000 ML 1,000 ML IV SCH (12:08)
--- NOTE | 2020-01-25 14:03 | NUR ---
CM/SS: Telephone Call to Clement Armijo, [facility]. He reports that screener was able to screen pt and that she would meet the criteria for involuntary placement, however the wait list for [facility] is 11 people long. They can not take pt today. He thinks that pt would possibly be able to go Tuesday or next week some time. He is informed about having open beds here for possible COVID 19 pts, and that pt does not meet the criteria for being admitted at this time. Clement has requested that pt be able to remain until a secure placement could be found. He understands, however reports in the past they have been able to keep pts. He is asked for any other suggestions. He did not have any at this time. This worker in reviewing the information sees that [facility] in [place] had beds, they did not give an answer. [facility] contacted (Robina) [phone] - they review and ask to call back after 2pm to allow Dr time to review. Contacted [facility] (2:12pm)[place], [place] for follow up. They have denied pt. Dr. Brown is notified of the denial. This worker will follow up. Clement Armijo at [facility] contacted. He is informed that pt will be admitted, and it has been requested that they follow up with [facility] on Tuesday, for possible involuntary placement. This worker will follow up.
[2020-01-25] MEDS ORDERED: CATHETER FLUSH 10 ML SYR IV PRN (16:00)
[2020-01-25] MEDS ORDERED: ONDANSETRON 4 MG/2 ML (SDV) Z0FRAN IV PRN (16:00)
[2020-01-25] MEDS ORDERED: ACETAMINOPHEN 500 MG TAB (TYLENOL) PO PRN (16:00)
[2020-01-25] MEDS: LACTATED RINGERS 1,000 ML IV SCH (16:56)
[2020-01-25] MEDS: HALOPERIDOL 5 MG/ML (HALDOL) VIAL IM PRN ×2 (18:08→23:18)
--- NOTE | 2020-01-25 18:33 | NUR ---
PT HAS RINGS ON 3 FINGERS OF LEFT HAND, 2 YELLOW RINGS AND ONE WHITE, RIGHT HAND HAS 2 WHITE RINGS AND 1 YELLOW RING
--- NOTE | 2020-01-25 23:00 | NUR ---
TIMELINE NOTE BELOW: 1914- PATIENT'S SON, ELAINE, CALLED BUT DID NOT HAVE PATIENT PASSWORD. NO INFORMATION GIVEN AT THIS TIME. 2029- PATIENT'S SON CALLED AGAIN ASKING ABOUT HIS MOM BUT DID NOT HAVE PASSWORD. THIS RN SPOKE TO ELAINE AND EXPLAINED I AM UNABLE TO PROVIDE ANY INFORMATION WITHOUT THE PATIENT'S PASSWORD. ELAINE SEEMED TO GET EXTREMELY FRUSTRATED, RAISING HIS VOICE DEMANDING TO SPEAK TO HIS MOM STATING: "LET ME TALK TO HER, I KNOW SHE'S THERE. YOU'RE KEEPING HER AGAINST HER WILL AND SEDATING HER. I SET HER PASSWORD. I WANT TO SPEAK TO YOUR BOAT MECHANIC". THIS RN TRANSFERRED CALL TO HR SHARED SERVICES CONSULTANT, KAYLYNN. 2044-THIS RN WITH HR SHARED SERVICES CONSULTANT, KAYLYNN, WHEN SHE ANSWERED ELAINE'S CALL. HE DEMANDED TO SPEAK TO HIS MOM BUT STILL UNABLE TO PROVIDE PATIENT PASSWORD. KAYLYNN EXPLAINED WE ARE UNABLE TO PROVIDE ANY INFORMATION. ELAINE WAS INCREASINGLY AGITATED, RAISING HIS VOICE STATING " I AM GOING TO [place] YOU! LET ME SPEAK TO HER NOW. MY WHOLE FAMILY WANTS HER RELEASED", WHEN ASKED WHO ALL IN THE FAMILY WANTED HER RELEASED ELAINE STATES "IT DOESN'T MATTER". BETWEEN THE HOURS OF 2029 AND 2229 ELAINE CONTINUED TO CALL 15 MORE TIMES YET STILL UNABLE TO PROVIDE THE PATIENT PASSWORD. HE WOULD YELL AND CUSS WHEN TOLD HE NEEDED THE PASSWORD. 2199- PATIENT'S SON, ELAINE, CALLED WITH PATIENT PASSWORD. THIS RN LET HIM KNOW PATIENT WAS RESTING COMFORTABLY AT THIS TIME. ELAINE BEGINS TO YELL "LET ME TALK TO MY MOM NOW, WAKE HER UP. WHY IS SHE SLEEPING? BECAUSE YOU'RE SEDATING HER AND HOLDING HER AGAINST HER WILL? I WANT TO COME GET HER NOW. LET HER LEAVE". THIS RN EXPLAINED TO ELAINE THAT PATIENT WAS EVALUATED BY [facility] AND IS ON AN INVOLUNTARY HOLD DUE TO RISK OF HARM TO HERSELF AND OTHERS AND IS AWAITING PLACEMENT. THIS RN ALSO TOLD ELAINE THAT NO SEDATION MEDICATION HAD BEEN PASSED ON THIS SHIFT, PATIENT HAS BEEN RESTING COMFORTABLY. THIS RN ASSURED ELAINE THAT PATIENT IS BEING WELL TAKEN CARE OF, HER VITALS ARE STABLE AND ALL OF HER NEEDS ARE BEING MET. ELAINE GOT INCREASINGLY ANGRY AND CONTINUED TO YELL, THIS RN ASKED THAT HE LOWER HIS VOICE. WHEN ELAINE WOULD NOT STOP YELLING, THIS RN EXPLAINED THAT SHE WAS HANGING UP AT THIS TIME DUE TO THE WAY HE WAS SPEAKING UNPROFESSIONALLY. 2214- PT TRYING TO GET OUT OF BED SAYING "I WANT TO LEAVE. LET ME GET UP, I WANT MY GRANDSON IN HERE NOW". PATIENT PULLING AT ESSENTIAL LINES. THIS RN OFFERED FOOD AND WATER, SHE ATE SOME CHIPS AND HAD A FEW SIPS OF WATER. SITTER AT BESIDE AT THIS TIME. 2029-PATIENT'S SON, ELAINE, CALLED HR SHARED SERVICES CONSULTANT, KAYLYNN. HE ASKED "WHAT DO I NEED TO DO TO COME GET MY MOM? DO I NEED TO THREATEN TO [facility] SO YOU ALL WILL EVACUATE AND I CAN GET MY MOM?" AT THIS TIME KAYLYNN NOTIFIED [employer] [place] [employer] DEPARTMENT OF ELAINE'S THREAT. POLICE STATED THEY WOULD VISIT HIS RESIDENCE AT THIS TIME. 2299- THIS RN CALLED PATIENT'S DAUGHTER, TRACY, TO UPDATE ON THE SITUATION WITH HER BROTHER ELAINE. TRACY WAS EXTREMELY APOLOGETIC AND SAID SHE WOULD CALL HIM AND TELL HIM NOT TO SPEAK TO US THAT WAY. 2314- PATIENT IS RESTING COMFORTABLY, CALL LIGHT WITHIN REACH AND SITTER AT BEDSIDE. THIS RN WILL CONTINUE TO MONITOR.
[2020-01-26] VITALS (23 sets, daily range): BP systolic 108–170; BP diastolic 63–105
[2020-01-26] MEDS: LACTATED RINGERS 1,000 ML IV SCH ×3 (02:31→22:30)
[2020-01-26] MEDS: LORazepam INJ 2 MG/ML (ATIVAN) VIAL IVP PRN ×4 (02:37→14:20)
[2020-01-26] MEDS: D5 1/2 NS W/KCL 20 MEQ/L 1,000 ML IV SCH ×3 (02:38→14:05)
[2020-01-26 03:28] LABS: BASOPHILS % (AUTO) 0 % (0-10); EOSINOPHILS # (AUTO) 0.2 10^3/uL (0.0-0.3); EOSINOPHILS % (AUTO) 4 % (0-10); HEMATOCRIT 38 % (35-52); HEMOGLOBIN 12.7 G/DL (11.5-16.0); LYMPHOCYTES # (AUTO) 1.9 X 10^3 (1.0-4.0); LYMPHOCYTES % (AUTO) 32 % (12-44); MEAN CORPUSCULAR HEMOGLOBIN 30 PG (25-34); MEAN CORPUSCULAR HGB CONC 34 G/DL (32-36); MEAN CORPUSCULAR VOLUME 91 FL (80-99); MEAN PLATELET VOLUME 11.1 FL (7.4-10.4); MONOCYTES # (AUTO) 0.4 X 10^3 (0.0-1.0); MONOCYTES % (AUTO) 7 % (0-12); NEUTROPHILS # (AUTO) 3.5 X 10^3 (1.8-7.8); NEUTROPHILS % (AUTO) 58 % (42-75); PLATELET COUNT 168 10^3/uL (130-400); RED CELL DISTRIBUTION WIDTH 13.2 % (10.0-14.5)
[2020-01-26 03:33] LABS: CHLORIDE 108 MMOL/L (98-107); POTASSIUM 3.5 MMOL/L (3.6-5.0); SODIUM 139 MMOL/L (135-145)
[2020-01-26 03:34] LABS: CALCIUM 8.8 MG/DL (8.5-10.1)
[2020-01-26 03:35] LABS: GLUCOSE 103 MG/DL (70-105)
[2020-01-26 03:36] LABS: CARBON DIOXIDE 20 MMOL/L (21-32)
[2020-01-26 03:38] LABS: PHOSPHORUS 2.9 MG/DL (2.3-4.7)
[2020-01-26 03:39] LABS: CREATININE SERUM 0.74 MG/DL (0.60-1.30); GFR ESTIMATED > 60
[2020-01-26 03:40] LABS: BUN/CREATININE RATIO 7
[2020-01-26 03:41] LABS: MAGNESIUM 1.7 MG/DL (1.6-2.4)
[2020-01-26] MEDS: HALOPERIDOL 5 MG/ML (HALDOL) VIAL IM PRN ×4 (03:44→17:53)
[2020-01-26] MEDS ORDERED: WATER (STERILE) FOR INJECTION 10 ML ONE ×2 (04:41→11:39)
[2020-01-26] MEDS: ZIPRASIDONE 20 MG INJ (GEODON) VIAL IM PRN ×3 (04:49→16:48)
[2020-01-26] MEDS: KCL 20 MEQ TAB (K-DUR) PO SCH (06:21)
[2020-01-26] MEDS: POTASSIUM CL 10MEQ/50ML IVPB 50 ML IV SCH ×3 (06:21→07:37)
[2020-01-26] MEDS: MAGNESIUM 1 GM/100 ML IVPB 100 ML IV SCH ×3 (06:21→07:36)
[2020-01-26] MEDS ORDERED: diphenhydrAMINE 50 MG/ML INJ (BENADRYL) IVP ONE (18:00)
[2020-01-27] VITALS (9 sets, daily range): BP systolic 104–161; BP diastolic 56–96
[2020-01-27 03:58] LABS: BASOPHILS % (AUTO) 0 % (0-10); EOSINOPHILS # (AUTO) 0.3 10^3/uL (0.0-0.3); EOSINOPHILS % (AUTO) 5 % (0-10); HEMATOCRIT 40 % (35-52); HEMOGLOBIN 13.3 G/DL (11.5-16.0); LYMPHOCYTES # (AUTO) 1.9 X 10^3 (1.0-4.0); LYMPHOCYTES % (AUTO) 33 % (12-44); MEAN CORPUSCULAR HEMOGLOBIN 30 PG (25-34); MEAN CORPUSCULAR HGB CONC 33 G/DL (32-36); MEAN CORPUSCULAR VOLUME 90 FL (80-99); MEAN PLATELET VOLUME 11.2 FL (7.4-10.4); MONOCYTES # (AUTO) 0.5 X 10^3 (0.0-1.0); MONOCYTES % (AUTO) 8 % (0-12); NEUTROPHILS % (AUTO) 54 % (42-75); PLATELET COUNT 166 10^3/uL (130-400); RED CELL DISTRIBUTION WIDTH 13.5 % (10.0-14.5); WHITE BLOOD COUNT 5.6 10^3/uL (4.3-11.0)
[2020-01-27] MEDS: HALOPERIDOL 5 MG/ML (HALDOL) VIAL IM PRN (04:05)
[2020-01-27 04:07] LABS: CHLORIDE 109 MMOL/L (98-107); POTASSIUM 3.8 MMOL/L (3.6-5.0); SODIUM 140 MMOL/L (135-145)
[2020-01-27 04:08] LABS: CALCIUM 8.7 MG/DL (8.5-10.1); GLUCOSE 108 MG/DL (70-105)
[2020-01-27 04:10] LABS: CARBON DIOXIDE 20 MMOL/L (21-32)
[2020-01-27 04:12] LABS: CREATININE SERUM 0.72 MG/DL (0.60-1.30); GFR ESTIMATED > 60; PHOSPHORUS 3.4 MG/DL (2.3-4.7)
[2020-01-27 04:13] LABS: BUN/CREATININE RATIO 4
[2020-01-27 04:15] LABS: MAGNESIUM 1.9 MG/DL (1.6-2.4)
[2020-01-27] MEDS: MAGNESIUM 1 GM/100 ML IVPB 100 ML IV SCH (04:49)
[2020-01-27] MEDS: POTASSIUM CL 10MEQ/50ML IVPB 50 ML IV SCH (04:49)
[2020-01-27] MEDS: KCL 20 MEQ TAB (K-DUR) PO SCH (04:50)
[2020-01-27] MEDS: LACTATED RINGERS 1,000 ML IV SCH (08:00)
[2020-01-27] MEDS ORDERED: diphenhydrAMINE 50 MG/ML INJ (BENADRYL) ONE (09:20)
[2020-01-27] MEDS: diphenhydrAMINE 50 MG/ML INJ (BENADRYL) IVP PRN ×2 (09:30→14:55)
[2020-01-27] MEDS: D5 1/2 NS W/KCL 20 MEQ/L 1,000 ML IV SCH (10:04)
--- NOTE | 2020-01-27 12:00 | History & Physical-Hospitalist ---
History of Present Illness HPI/Chief Complaint PT ARRIVES VIA EMS FROM HOME EMS REPORT THAT DAUGHTER CALLED THEM BECAUSE PT HAS HAD PSYCHOTIC BEHAVIOR FOR THE LAST 2 DAYS THIS IS A CHRONIC, RECURRING PROBLEM FOR PT, AND MANY TIMES HAS BEEN RELATED TO PT NOT TAKING HER MEDICATIONS. IT IS UNKNOWN IF/WHEN PT LAST TOOK ANY MEDICATIONS, AND IT IS UNKNOWN WHAT MEDICATIONS SHE IS CURRENTLY SUPPOSED TO BE TAKING PT IS UNCOOPERATIVE AND IS UNABLE TO ANSWER ANY QUESTIONS PT REPEATS VARIOUS WORDS AND PHRASES IN RAPID SUCCESSION MULTIPLE TIMES--COMPLETELY NON-SENSICAL ON ARRIVAL, PT IS SAYING REPEATEDLY AND VERY RAPIDLY "PUT IT DOWN" "I'M " "THEY'RE " "THE WORLD'S ANYWAYS" "THE HEART POPS" "I DIDN'T " "HELLO" "NO" AND VARIOUS OTHER WORDS AND PHRASES. NO OTHER INFORMATION IS OBTAINABLE AT THIS TIME ALL PAST MEDICAL HISTORY IS FROM OLD RECORDS. RN DID SPEAK WITH SON, WHO REPORTED THAT PT HAS DONE THIS MULTIPLE TIMES AND THIS IS NO DIFFERENT She was sedated upon my arrival after apparent long night for staff. For fear of agitation I did not wake the patient. She was admitted to our facility only because no psychiatric beds and also while you're available and she is currently on the waiting list. Other than agitation and psychosis when she has been awake staff report no other complaints or problems. Date Seen 01/26/20 Time Seen by a Provider: 09:30 Attending Physician Leroy Sinclair MD PCP Cristian Pandya DO Referring Physician Date of Admission Jan 25, 2020 at 14:15 Home Medications & Allergies Home Medications Reviewed patient Home Medication Reconciliation performed by pharmacy medication reconciliations restoration technician and/or nursing. Patients Allergies have been reviewed. 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, altered mental status Past Eozbnmi-Pfirtv-Texrpr Hx Past Med/Social Hx: Reviewed and Corrections made Patient Social History Alcohol Use: Denies Use Recreational Drug Use: Yes (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) Drug of Choice: HX OF OPIATE ABUSE-ON 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 Smoking Status: Current Everyday Smoker Type Used: Cigarettes 2nd Hand Smoke Exposure: Yes Recent Foreign Travel: No Contact w/other who traveled: No Recent Hopitalizations: No Recent Infectious Disease Expo: No Immunizations Up To Date Tetanus Booster (TDap): More than 5yrs Seasonal Allergies Seasonal Allergies: No Past Medical History Surgeries: Appendectomy, Gallbladder, Hysterectomy, Oophorectomy, Orthopedic 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: No Sexually Transmitted Disease: No HIV/AIDS: No Hysterectomy Genitourinary: Bladder Infection, UTI-Chronic Gastrointestinal: Abdominal Hernia, Gastroesophageal Reflux Musculoskeletal: Degenerate Disk Disease, Fibromyalgia, Chronic Back Pain, Fractures Loss of Vision: Denies Hearing Impairment: Denies Did You Recieve Any Treatments: No Psychosocial: Sleep Difficulties, Anxiety, PTSD, Bipolar, Depression History of Blood Disorders: No Adverse Reaction to Blood Ram: No Family History Cancer No Pertinent Family Hx Review of Systems Constitutional: see HPI Physical Exam Physical Exam Vital Signs Vital Signs - First Documented 01/24/20 01/27/20 21:06 07:00 Temp 37.2 Pulse 110 Resp 24 B/P (MAP) 152/77 (102) Pulse Ox 98 O2 Delivery Room Air O2 Flow Rate 122.00 68.00 Capillary Refill : Less Than 3 Seconds Height, Weight, BMI Height: 5'4.00" Weight: 175lbs. 6.4oz. [id number]; 29.00 BMI Method:Stated General Appearance: No Apparent Distress, Other (Sleeping) Respiratory: Chest Non Tender, Lungs Clear, Normal Breath Sounds, No Accessory Muscle Use, No Respiratory Distress Cardiovascular: Regular Rate, Rhythm, No Edema, No Gallop, No JVD, No Murmur, Normal Peripheral Pulses Gastrointestinal: Normal Bowel Sounds, No Organomegaly, No Pulsatile Mass, Non Tender, Soft Extremity: Normal Inspection, No Pedal Edema, Other (No bruising noted) Results Results/Procedures Labs Laboratory Tests 01/26/20 03:07 01/27/20 03:20 Patient resulted labs reviewed. Assessment/Plan Admission Diagnosis 1. Acute on chronic psychosis suspected underlying schizophrenia with exacerbation due to medication noncompliance continue IV antipsychotics and jayla berry will require intensive care unit monitoring while we're waiting for a psychiatric bed to open up and also wanted me her reported only option at this time for receiving the mental health that she needs. Admission Status: Observation Clinical Quality Measures DVT/VTE Risk/Contraindication: Risk Factor Score Per Nursin RFS Level Per Nursing on Admit: 2=Moderate LEROY SINCLAIR MD Jan 27, 2020 12:00
--- NOTE | 2020-01-27 12:08 | Progress Note - Hospitalist ---
Subjective HPI/CC On Admission Date Seen by Provider: Jan 27, 2020 Time Seen by Provider: 09:30 PT ARRIVES VIA EMS FROM HOME EMS REPORT THAT DAUGHTER CALLED THEM BECAUSE PT HAS HAD PSYCHOTIC BEHAVIOR FOR THE LAST 2 DAYS THIS IS A CHRONIC, RECURRING PROBLEM FOR PT, AND MANY TIMES HAS BEEN RELATED TO PT NOT TAKING HER MEDICATIONS. IT IS UNKNOWN IF/WHEN PT LAST TOOK ANY MEDICATIONS, AND IT IS UNKNOWN WHAT MEDICATIONS SHE IS CURRENTLY SUPPOSED TO BE TAKING PT IS UNCOOPERATIVE AND IS UNABLE TO ANSWER ANY QUESTIONS PT REPEATS VARIOUS WORDS AND PHRASES IN RAPID SUCCESSION MULTIPLE TIMES--COMPLETELY NON-SENSICAL ON ARRIVAL, PT IS SAYING REPEATEDLY AND VERY RAPIDLY "PUT IT DOWN" "I'M " "THEY'RE " "THE WORLD'S ANYWAYS" "THE HEART POPS" "I DIDN'T " "HELLO" "NO" AND VARIOUS OTHER WORDS AND PHRASES. NO OTHER INFORMATION IS OBTAINABLE AT THIS TIME ALL PAST MEDICAL HISTORY IS FROM OLD RECORDS. RN DID SPEAK WITH SON, WHO REPORTED THAT PT HAS DONE THIS MULTIPLE TIMES AND THIS IS NO DIFFERENT She was sedated upon my arrival after apparent long night for staff. For fear of agitation I did not wake the patient. She was admitted to our facility only because no psychiatric beds and also while you're available and she is currently on the waiting list. Other than agitation and psychosis when she has been awake staff report no other complaints or problems. Subjective/Events-last exam Patient arouses easily reports that she feels anxious but then falls back asleep. She appears to be in no acute distress Objective Exam Vital Signs Vital Signs Date Time Temp Pulse Resp B/P (MAP) Pulse Ox O2 Delivery O2 Flow Rate FiO2 01/27/20 10:00 54 13 123/72 (89) 94 Room Air 01/27/20 08:00 36.3 01/27/20 07:00 122.00 68.00 Capillary Refill : Less Than 3 Seconds General Appearance: No Apparent Distress, WD/WN Respiratory: Chest Non Tender, Lungs Clear, Normal Breath Sounds, No Accessory Muscle Use, No Respiratory Distress Cardiovascular: Regular Rate, Rhythm, No Edema, No Gallop, No JVD, No Murmur Extremity: Normal Inspection, Normal Range of Motion, No Pedal Edema Results/Procedures Lab Laboratory Tests 01/27/20 03:20 Patient resulted labs reviewed. Assessment/Plan Assessment and Plan Assess & Plan/Chief Complaint 1. Acute on chronic psychosis suspect schizophrenia due to medication noncompliance. Will resume scheduled Abilify 10 mg daily and are awaiting inpatient bed at [facility]. Clinical Quality Measures DVT/VTE Risk/Contraindication: Risk Factor Score Per Nursin RFS Level Per Nursing on Admit: 2=Moderate LEROY OROZCO MD Jan 27, 2020 12:08
[2020-01-27] MEDS ORDERED: ALPRAZolam 0.5 MG (XANAX) TAB ONE (13:44)
[2020-01-27] MEDS: ALPRAZolam 0.5 MG (XANAX) TAB PO PRN ×2 (14:55→21:26)
--- NOTE | 2020-01-27 14:55 | NUR ---
TRANSFERRED FROM ICU TO ROOM 412. AT BEDSIDE. DENIES PAIN. IV INTACT UPPER RIGHT FOREARM. ORDER OBTAINED FROM DR. OROZCO TO NE MAINLINE FLUIDS AND SALINE LOCK. SITTER AT BEDSIDE.
--- NOTE | 2020-01-27 15:00 | NUR ---
CASE MARINE ENGINEER [facility] STATED WAS GOING TO DC LOBO CATHETER AT 1445.
--- NOTE | 2020-01-27 16:30 | NUR ---
UP TO BATHROOM. VOIDED 200 CC. IS VERY RESTLESS - AMBULATING IN RESENDIZ WITH SITTER. CLARIFIED WITH DR. OROZCO - ONLY SCHEDULED MED AT THIS TIME IS ABILIFY.
[2020-01-27] MEDS ORDERED: QUEtiapine 200 MG (SEROquel) TAB IMMEDIATE RELEASE PO ONE (21:00)
[2020-01-27] MEDS ORDERED: NICOTINE 21 MG (NICODERM) PATCH ONE (21:19)
[2020-01-28] MEDS: diphenhydrAMINE 50 MG/ML INJ (BENADRYL) IVP PRN (03:21)
[2020-01-28] MEDS: HALOPERIDOL 5 MG/ML (HALDOL) VIAL IM PRN (03:21)
[2020-01-28 03:41] VITALS: BP 105/70
[2020-01-28 05:49] LABS: BASOPHILS % (AUTO) 1 % (0-10); EOSINOPHILS # (AUTO) 0.3 10^3/uL (0.0-0.3); EOSINOPHILS % (AUTO) 5 % (0-10); HEMATOCRIT 40 % (35-52); HEMOGLOBIN 13.7 G/DL (11.5-16.0); LYMPHOCYTES # (AUTO) 1.8 X 10^3 (1.0-4.0); LYMPHOCYTES % (AUTO) 32 % (12-44); MEAN CORPUSCULAR HEMOGLOBIN 30 PG (25-34); MEAN CORPUSCULAR HGB CONC 34 G/DL (32-36); MEAN CORPUSCULAR VOLUME 89 FL (80-99); MEAN PLATELET VOLUME 11.4 FL (7.4-10.4); MONOCYTES # (AUTO) 0.5 X 10^3 (0.0-1.0); MONOCYTES % (AUTO) 8 % (0-12); NEUTROPHILS # (AUTO) 3.1 X 10^3 (1.8-7.8); NEUTROPHILS % (AUTO) 55 % (42-75); PLATELET COUNT 182 10^3/uL (130-400); RED CELL DISTRIBUTION WIDTH 13.1 % (10.0-14.5); WHITE BLOOD COUNT 5.7 10^3/uL (4.3-11.0)
[2020-01-28 05:59] LABS: CHLORIDE 106 MMOL/L (98-107); POTASSIUM 3.7 MMOL/L (3.6-5.0); SODIUM 141 MMOL/L (135-145)
[2020-01-28 06:00] LABS: CALCIUM 9.4 MG/DL (8.5-10.1); GLUCOSE 75 MG/DL (70-105)
[2020-01-28 06:02] LABS: CARBON DIOXIDE 22 MMOL/L (21-32)
[2020-01-28 06:04] LABS: CREATININE SERUM 0.82 MG/DL (0.60-1.30); GFR ESTIMATED > 60; PHOSPHORUS 4.6 MG/DL (2.3-4.7)
[2020-01-28 06:05] LABS: BUN/CREATININE RATIO 5
[2020-01-28 06:07] LABS: MAGNESIUM 1.9 MG/DL (1.6-2.4)
[2020-01-28 07:58] VITALS: BP 120/75
[2020-01-28] MEDS ORDERED: NICOTINE 21 MG (NICODERM) PATCH TD SCH (09:00)
[2020-01-28] MEDS ORDERED: PREG150C46 PO (10:31)
[2020-01-28] MEDS ORDERED: MIRT15TA6 PO (10:32)
[2020-01-28] MEDS ORDERED: BACL20TA PO (10:32)
[2020-01-28] MEDS ORDERED: POTA10CA43 PO (10:33)
[2020-01-28] MEDS ORDERED: SIMV40TA25 PO (10:34)
[2020-01-28] MEDS ORDERED: BUPR1TAB45 SL (10:35)
[2020-01-28] MEDS ORDERED: FURO40TA4 PO (10:35)
--- NOTE | 2020-01-28 10:39 | NUR ---
Spoke to patient she knew some of her medications not sure on dosing. Called [facility] pharmacy and they faxed over a recently filled list.
--- NOTE | 2020-01-28 12:20 | NUR ---
CM/SS: Visited with pt and spouse as to plan for discharge Plan: Pt will return home with spouse and have follow up with [facility] related to her counseling and her medications Summary: Pt is doing much better today. Pt reports not remembering what happened the other day and what brought her to the ER, and her behaviors. Pt only remembers looking for her . reports she may have overheated and had not been talking her medications. She reports she had not been talking then right. Spouse reports he has a pill operations planner, he is encouraged to get one for the pt. He verbalizes understanding. Pt is able to identify her counselor Shivani Toledo. An appointment is made for her to go to [facility] for follow up. She verbalizes understanding as to the follow up on the appt for [facility], and reports she will go. Telephone call to Clement Armijo - [facility] - letting him know that pt is stable today and she will not need a referral to [facility]. He is also informed about the appt with Shivani at [facility] later this week. He will call Shivani and let her know of the recent behaviors and hospital stay.
[2020-01-28] MEDS ORDERED: ARIP10TA17 PO (12:24)
[2020-01-28] MEDS ORDERED: SERT50TA9 PO (12:26)
[2020-01-28 12:41] VITALS: BP 120/75
--- NOTE | 2020-01-28 15:21 | Discharge Summary ---
Discharge Summary Hospital Course Was the Problem List Reviewed?: Yes Problems/Dx: (1) Acute psychosis Status: Acute Hospital Course Date of Admission: Jan 25, 2020 at 14:15 Admission Diagnosis : Acute psychosis Family Physician/Provider: Cristian Juares DO Date of Discharge: 01/28/20 Discharge Diagnosis: Acute psychosis Hospital Course: Jackelin Osborn is a 50-year-old female with past medical history of bipolar disorder who presented with acute psychosis. She was evaluated and deemed to be a candidate for inpatient psychiatric treatment. There are no beds available at any of the surrounding facilities. She was put on a wait list at [facility]. She was restarted on her antipsychotic medications and she returned to her baseline level of function. She had apparently been inadvertently noncompliant with her medications. She was instructed to obtain a pillbox. She should follow-up with her primary care physician. Labs and Pending Lab Test: Laboratory Tests 01/28/20 05:15: White Blood Count 5.7, Red Blood Count 4.51, Hemoglobin 13.7, Hematocrit 40, Mean Corpuscular Volume 89, Mean Corpuscular Hemoglobin 30, Mean Corpuscular Hemoglobin Concent 34, Red Cell Distribution Width 13.1, Platelet Count 182, Mean Platelet Volume 11.4H, Neutrophils (%) (Auto) 55, Lymphocytes (%) (Auto) 32, Monocytes (%) (Auto) 8, Eosinophils (%) (Auto) 5, Basophils (%) (Auto) 1, Neutrophils # (Auto) 3.1, Lymphocytes # (Auto) 1.8, Monocytes # (Auto) 0.5, Eosinophils # (Auto) 0.3, Basophils # (Auto) 0.0, Sodium Level 141, Potassium Level 3.7, Chloride Level 106, Carbon Dioxide Level 22, Anion Gap 13, Blood Urea Nitrogen 4L, Creatinine 0.82, Estimat Glomerular Filtration Rate > 60, BUN/Creatinine Ratio 5, Glucose Level 75, Calcium Level 9.4, Phosphorus Level 4.6, Magnesium Level 1.9 Microbiology 01/25/20 MRSA Screen - Final, Complete MRSA not isolated Home Meds Active Reported Sertraline HCl 50 Mg Tablet 100 Mg PO DAILY Aripiprazole 10 Mg Tablet 10 Mg PO DAILY Buprenorphin-Naloxon 8-2 mg Sl (Buprenorphine HCl/Naloxone HCl) 1 Each Tab.subl 1 Each SL TID 7 Days Furosemide 40 Mg Tablet 20 Mg PO DAILY Simvastatin 40 Mg Tablet 40 Mg PO DAILY Potassium Chloride 10 Meq Capsule.er 10 Meq PO DAILY Mirtazapine 15 Mg Tablet 15 Mg PO HS Baclofen 20 Mg Tablet 20 Mg PO TID PRN Pregabalin 150 Mg Capsule 150 Mg PO BID Assessment/Pt Instructions Take medications as prescribed. Obtain a pillbox. Follow-up with your primary care physician and therapist. Discharge Planning: <30 minutes discharge planning Discharge Instructions Discharge Diet: No Restrictions Activity as Tolerated: Yes Discharge Physical Examination Vital Signs Vital Signs Date Time Temp Pulse Resp B/P (MAP) Pulse Ox O2 Delivery O2 Flow Rate FiO2 01/28/20 12:41 36.4 88 20 120/75 95 Room Air 01/27/20 07:00 122.00 68.00 General Appearance: No Apparent Distress, Obese HEENT: PERRL/EOMI, Pharynx Normal Respiratory: Lungs Clear, Normal Breath Sounds, No Respiratory Distress Cardiovascular: Regular Rate, Rhythm, No Edema, No Murmur Gastrointestinal: Normal Bowel Sounds, Non Tender, Soft Extremity: Normal Inspection, Non Tender, No Pedal Edema Skin: Normal Color, Warm/Dry Neurologic/Psychiatric: Alert, No Motor/Sensory Deficits, Normal Mood/Affect; No Disoriented Allergies: Coded Allergies: amoxicillin (Verified Allergy, Unknown, 01/01/16) GI codeine (Verified Allergy, Unknown, 10/18/05) varenicline (Verified Allergy, Unknown, Rash, 02/20/19) Vesicular type rash, 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
== END 2020-01-28 12:41 | disposition home or self-care (01) | DRG 885 ==
LOC: EDUNIT# 21:06 → ER 21:08 → ICU 01-25 14:15 → 4TH 01-27 14:55
PROVIDERS: ADMIT Internal Medicine; ATTEND Internal Medicine
DX: F29 Unspecified psychosis not due to a substance or known physiological condition (principal); Z91.14 Patient's other noncompliance with medication regimen
CPT/HCPCS: 36415; 51701; 51702; 80048; 80053; 80306; 80320; 80329; 81000; 83735; 84100; 84443; 84703; 85025; 85610; 85730; 87081; 93005; 93041; 96361; 96372; 96374; 96375; 96376

== ENCOUNTER → 2020-05-28 | Outpatient (CLI) | payer MEDICARE, MEDICAID ==
[~2020-05-28] MED LIST changes: +ARIP10TA17 PO; +BACL20TA PO; +BUPR1TAB45 SL; +FURO40TA4 PO; +MIRT15TA6 PO; +POTA10CA43 PO; +PREG150C46 PO; +SERT50TA9 PO
--- NOTE | 2020-05-28 16:34 | Diagnostic Imaging Report ---
INDICATION: Routine screening. COMPARISON: 02/01/2013 and 08/21/2010. TECHNIQUE: 2D and 3D bilateral screening mammography was performed with CAD. FINDINGS: Scattered fibroglandular densities are identified bilaterally. The parenchymal pattern is stable. No mass or malignant appearing microcalcifications are seen. The axillae are unremarkable. IMPRESSION: No mammographic features suspicious for malignancy are identified. ACR BI-RADS Category 1: Negative. Result letter will be mailed to the patient. Note: At least 10% of breast cancer is not imaged by mammography. Dictated by: Dictated on workstation # [id number]
== END ==
LOC: RAD 14:45
PROVIDERS: ATTEND Emergency Medicine
DX: Z12.31 Encounter for screening mammogram for malignant neoplasm of breast (principal)
CPT/HCPCS: 77063; 77067

== ENCOUNTER 2020-07-01 18:59 | Emergency (ER) | payer MEDICARE, MEDICAID ==
[2020-07-01] MEDS ORDERED: fentaNYL INJECTION 100 MCG/2 ML AMP IV ONE (19:01)
[2020-07-01] MEDS ORDERED: ETOMIDATE IV SOLN 20 MG/10 ML VIAL IV ONE (19:01)
[2020-07-01] MEDS ORDERED: ROCURONIUM 50 MG/5 ML (ZEMURON) VIAL IV ONE (19:01)
[2020-07-01] MEDS ORDERED: MIDAZOLAM 5 MG/5 ML (VERSED) VIAL INJ ONE (19:01)
[2020-07-01] MEDS ORDERED: PROPOFOL DRIP (ICU) 100 ML IV ONE (19:13)
[2020-07-01 19:14] LABS: BASOPHILS % (AUTO) 0 % (0-10); EOSINOPHILS % (AUTO) 0 % (0-10); HEMATOCRIT 49 % (35-52); HEMOGLOBIN 15.4 g/dL (11.5-16.0); LYMPHOCYTES # (AUTO) 0.9 10^3/uL (1.0-4.0); LYMPHOCYTES % (AUTO) 6 % (12-44); MEAN CORPUSCULAR HEMOGLOBIN 31 pg (25-34); MEAN CORPUSCULAR HGB CONC 31 g/dL (32-36); MEAN CORPUSCULAR VOLUME 98 fL (80-99); MEAN PLATELET VOLUME 11.1 fL (9.0-12.2); MONOCYTES # (AUTO) 1.5 10^3/uL (0.0-1.0); MONOCYTES % (AUTO) 10 % (0-12); NEUTROPHILS # (AUTO) 12.3 10^3/uL (1.8-7.8); NEUTROPHILS % (AUTO) 83 % (42-75); PLATELET COUNT 220 10^3/uL (130-400); WHITE BLOOD COUNT 14.7 10^3/uL (4.3-11.0)
[2020-07-01] MEDS ORDERED: LACTATED RINGERS 1,000 ML IV ONE (19:15)
--- NOTE | 2020-07-01 19:20 | NUR ---
190 Preoxygenated via BVM per RT SPO2 100% 190 20mg etomidate 1907 100mg rocuronium 190 Itubation complete with + color change. 23 @ gum. 7.5 ET tube. FIO2 45% PEEP 5 TV 450 Rate 18 1912 18Fr OG et taped to ET tube. 1927 CXR reviewed 1928 ET tube pulled back to 23@ lips by Eugene Tobias APRN
--- NOTE | 2020-07-01 19:25 | NUR ---
Pt noted to be incontinent of bowel. Pt cleaned, dried, et repositioned.
[2020-07-01 19:29] LABS: ALBUMIN 4.1 GM/DL (3.2-4.5); CHLORIDE 105 MMOL/L (98-107); POTASSIUM 4.9 MMOL/L (3.6-5.0); SODIUM 145 MMOL/L (135-145)
[2020-07-01 19:30] LABS: CALCIUM 8.3 MG/DL (8.5-10.1)
[2020-07-01 19:31] LABS: GLUCOSE 166 MG/DL (70-105); TOTAL PROTEIN 7.3 GM/DL (6.4-8.2)
[2020-07-01 19:32] LABS: BAND NEUTROPHILS 2 %; BASOPHILS % (MANUAL) 0 %; EOSINOPHILS % (MANUAL) 0 %; LYMPHOCYTES % (MANUAL) 8 %; MONOCYTES % (MANUAL) 12 %; NEUTROPHILS % (MANUAL) 78 %; RBC MORPH NORMAL
[2020-07-01 19:33] LABS: BILIRUBIN,TOTAL 0.2 MG/DL (0.1-1.0); CARBON DIOXIDE 21 MMOL/L (21-32)
[2020-07-01 19:35] LABS: ALKALINE PHOSPHATASE 84 U/L (40-136); CREATININE SERUM 2.68 MG/DL (0.60-1.30); GFR ESTIMATED 19
[2020-07-01 19:36] LABS: BUN/CREATININE RATIO 9
--- NOTE | 2020-07-01 19:37 | Diagnostic Imaging Report ---
INDICATION: Altered mental status. Time of exam: 7:23 PM Correlation is made with prior exam from 11/04/2019. ET tube has been placed and is somewhat low in position entering the right mainstem bronchus. This should be pulled back approximately 2-1/2 to 3 cm. NG tube goes into the stomach. There is central congestion with some linear atelectasis left base. There is no effusion or pneumothorax. IMPRESSION: ET tube has been placed and is somewhat low in position entering the right mainstem bronchus, as described. Results were called to the Emergency Department prior to this dictation. Dictated by: Dictated on workstation # [id number]
[2020-07-01 19:38] LABS: ALANINE AMINOTRANSFERASE 17 U/L (0-55); MAGNESIUM 2.2 MG/DL (1.6-2.4); SALICYLATE < 5.0 MG/DL (5.0-20.0)
[2020-07-01 19:39] LABS: CREATINE KINASE 65 U/L (29-168); LIPASE 6 U/L (8-78)
[2020-07-01 19:40] LABS: ACETAMINOPHEN < 10 UG/ML (10-30)
[2020-07-01 19:44] LABS: CLARITY,URINE CLEAR; COLOR,URINE YELLOW; GLUCOSE, URINE (UA) NEGATIVE (NEGATIVE); KETONES,URINE NEGATIVE (NEGATIVE); LEUKOCYTE ESTERASE ,URINE NEGATIVE (NEGATIVE); NITRITE,URINE NEGATIVE (NEGATIVE); PROTEIN,URINE 1+ (NEGATIVE)
[2020-07-01 19:50] LABS: CREATINE KINASE MB 3.3 NG/ML (<6.6)
--- NOTE | 2020-07-01 20:00 | ED General ---
General Chief Complaint: Unresponsive Stated Complaint: SOA/POSS OVERDOSE Source of Information: Patient Exam Limitations: No Limitations History of Present Illness Date Seen by Provider: Jul 01, 2020 Time Seen by Provider: 19:10 Initial Comments No to ER by EMS from home after her family found her on the floor unresponsive and with an unusual breathing pattern. They informed EMS that she has a history of pill abuse and suspected that she had overdosed. EMS gave 2 mg of IV Narcan and she became much more arousable but still confused. 2040-patient's daughter Italia Osborn [phone] called to report concern of clonazepam overdose. She states that her father the patient's takes Klonopin and the mother has historically taken some of his medications. 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, altered mental status Home Medications Aripiprazole 10 Mg Tablet, 10 MG PO DAILY, (Reported) Baclofen 20 Mg Tablet, 20 MG PO TID PRN for ANXIETY, (Reported) Buprenorphine HCl/Naloxone HCl 1 Each Tab.subl, 1 EACH SL TID, (Reported) Furosemide 40 Mg Tablet, 20 MG PO DAILY, (Reported) Mirtazapine 15 Mg Tablet, 15 MG PO HS, (Reported) Potassium Chloride 10 Meq Capsule.er, 10 MEQ PO DAILY, (Reported) Pregabalin 150 Mg Capsule, 150 MG PO BID, (Reported) Sertraline HCl 50 Mg Tablet, 100 MG PO DAILY, (Reported) Simvastatin 40 Mg Tablet, 40 MG PO DAILY, (Reported) Patient Home Medication List Home Medication List Reviewed: Yes Review of Systems Review of Systems Constitutional: see HPI, other (Unable to obtain) Past Fmkmjau-Wowttk-Kgtufl Hx Patient Social History Drug of Choice: HX OF OPIATE ABUSE-ON 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 Type Used: Cigarettes 2nd Hand Smoke Exposure: Yes Recent Hopitalizations: No Immunizations Up To Date Tetanus Booster (TDap): More than 5yrs Seasonal Allergies Seasonal Allergies: No Past Medical History Surgeries: Yes (HYST/BSO; LEFT ANKLE RECONSTRUCTION) Appendectomy, Gallbladder, Hysterectomy, Oophorectomy, Orthopedic Respiratory: No Cardiac: No Neurological: No 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 ) Sleep Difficulties, Anxiety, PTSD, Bipolar, Depression Integumentary: No Blood Disorders: No Adverse Reaction/Blood Tranf: No Family Medical History Cancer No Pertinent Family Hx Physical Exam Vital Signs Vital Signs - First Documented 07/01/20 07/01/20 19:22 19:59 Pulse 133 Resp 18 B/P (MAP) 148/102 Pulse Ox 100 FiO2 50 Capillary Refill : Height, Weight, BMI Height: 5'4.00" Weight: 175lbs. 6.4oz. 79.138464hm; 29.00 BMI Method:Stated General Appearance: WD/WN, Moderate Distress, Other (Altered mental status, disoriented, tachypneic with shallow breathing, keeps eyes closed. GCS gets 2 points for eye opening, 2 points for incomprehensible sounds, 4 points for motor function for a total of GCS 8. Decided to proceed with intubation for airway protection. Oxygen saturation 100% on room air upon arrival. While undressing her we found a bottle of Suboxone patches tucked into her bra.) Eyes: Bilateral Eye Normal Inspection, Bilateral Eye PERRL, Bilateral Eye EOMI HEENT: PERRL/EOMI, TMs Normal Neck: Full Range of Motion, Normal Inspection Respiratory: No Accessory Muscle Use, No Respiratory Distress, Other (Shallow breathing irregular breathing) Cardiovascular: Normal Peripheral Pulses, Tachycardia (Rate of 126) Gastrointestinal: Normal Bowel Sounds, Non Tender, Soft Extremity: Normal Capillary Refill, Normal Inspection Neurologic/Psychiatric: Disoriented, Other (Restless) Skin: Normal Color, Warm/Dry Focused Exam Lactate Level 07/01/20 19:40: Lactic Acid Level 4.49*H Lactic Acid Level Laboratory Tests Test 07/01/20 19:40 Lactic Acid Level 4.49 MMOL/L (0.50-2.00) *H Procedures/Interventions Date of ETT Placement: Jul 01, 2020 Time of ETT Placement: 1909 Intubation Method: orotracheal Tube Size: 7.50 Medications: Etomidate, Rocuronium Positive End Tide CO2: Yes Breath Sounds after Intubation: bilateral-equal Intubation Complications: no complications Post Intubation Xray: Yes Progress/Results/Core Measures Suspected Sepsis SIRS Temperature: Pulse: 133 Respiratory Rate: 18 Laboratory Tests 07/01/20 19:01: White Blood Count 14.7H Blood Pressure / Mean: 07/01/20 19:40: Lactic Acid Level 4.49*H Laboratory Tests 07/01/20 19:01: Creatinine 2.68H, Platelet Count 220, Total Bilirubin 0.2 07/01/20 19:40: INR Comment 1.0 Results/Orders Lab Results Laboratory Tests Test 07/01/20 19:01 07/01/20 19:10 07/01/20 19:30 07/01/20 19:40 Range/Units White Blood Count 14.7 H 4.3-11.0 10^3/uL Red Blood Count 5.03 3.80-5.11 10^6/uL Hemoglobin 15.4 11.5-16.0 g/dL Hematocrit 49 35-52 % Mean Corpuscular Volume 98 80-99 fL Mean Corpuscular Hemoglobin 31 25-34 pg Mean Corpuscular Hemoglobin Concent 31 L 32-36 g/dL Red Cell Distribution Width 13.0 10.0-14.5 % Platelet Count 220 130-400 10^3/uL Mean Platelet Volume 11.1 9.0-12.2 fL Immature Granulocyte % (Auto) 1 % Neutrophils (%) (Auto) 83 H 42-75 % Lymphocytes (%) (Auto) 6 L 12-44 % Monocytes (%) (Auto) 10 0-12 % Eosinophils (%) (Auto) 0 0-10 % Basophils (%) (Auto) 0 0-10 % Neutrophils # (Auto) 12.3 H 1.8-7.8 10^3/uL Lymphocytes # (Auto) 0.9 L 1.0-4.0 10^3/uL Monocytes # (Auto) 1.5 H 0.0-1.0 10^3/uL Eosinophils # (Auto) 0.0 0.0-0.3 10^3/uL Basophils # (Auto) 0.0 0.0-0.1 10^3/uL Immature Granulocyte # (Auto) 0.1 0.0-0.1 10^3/uL Neutrophils % (Manual) 78 % Lymphocytes % (Manual) 8 % Monocytes % (Manual) 12 % Eosinophils % (Manual) 0 % Basophils % (Manual) 0 % Band Neutrophils 2 % Blood Morphology Comment NORMAL Sodium Level 145 135-145 MMOL/L Potassium Level 4.9 3.6-5.0 MMOL/L Chloride Level 105 98-107 MMOL/L Carbon Dioxide Level 21 21-32 MMOL/L Anion Gap 19 H 5-14 MMOL/L Blood Urea Nitrogen 25 H 7-18 MG/DL Creatinine 2.68 H 0.60-1.30 MG/DL Estimat Glomerular Filtration Rate 19 BUN/Creatinine Ratio 9 Glucose Level 166 H 70-105 MG/DL Calcium Level 8.3 L 8.5-10.1 MG/DL Corrected Calcium 8.2 L 8.5-10.1 MG/DL Magnesium Level 2.2 1.6-2.4 MG/DL Total Bilirubin 0.2 0.1-1.0 MG/DL Aspartate Amino Transf (AST/SGOT) 17 5-34 U/L Alanine Aminotransferase (ALT/SGPT) 17 0-55 U/L Alkaline Phosphatase 84 40-136 U/L Total Creatine Kinase 65 29-168 U/L Creatine Kinase MB 3.3 <6.6 NG/ML Myoglobin 162.2 H 10.0-92.0 NG/ML Troponin I 0.116 H <0.028 NG/ML B-Type Natriuretic Peptide 704.4 H <100.0 PG/ML Total Protein 7.3 6.4-8.2 GM/DL Albumin 4.1 3.2-4.5 GM/DL Lipase 6 L 8-78 U/L Free Thyroxine 0.99 0.70-1.48 NG/DL TSH [place] Testing 0.30 L 0.35-4.94 UIU/ML Serum Test, Qualitative NEGATIVE NEGATIVE Salicylates Level < 5.0 L 5.0-20.0 MG/DL Acetaminophen Level < 10 L 10-30 UG/ML Serum Alcohol < 10 <10 MG/DL Glucometer 159 H 70-110 MG/DL Urine Color YELLOW Urine Clarity CLEAR Urine pH 6.0 5-9 Urine Specific [place] >=1.030 1.016-1.022 Urine Protein 1+ H NEGATIVE Urine Glucose (UA) NEGATIVE NEGATIVE Urine Ketones NEGATIVE NEGATIVE Urine Nitrite NEGATIVE NEGATIVE Urine Bilirubin 1+ H NEGATIVE Urine Urobilinogen 0.2 < = 1.0 MG/DL Urine Leukocyte Esterase NEGATIVE NEGATIVE Urine RBC (Auto) NEGATIVE NEGATIVE Urine RBC NONE /HPF Urine WBC NONE /HPF Urine Squamous Epithelial Cells 2-5 /HPF Urine Crystals NONE /LPF Urine Bacteria TRACE /HPF Urine Casts PRESENT /LPF Urine Hyaline Casts 5-10 H /LPF Urine Mucus LARGE H /LPF Urine Culture Indicated NO Urine Opiates Screen NEGATIVE NEGATIVE Urine Oxycodone Screen NEGATIVE NEGATIVE Urine Methadone Screen NEGATIVE NEGATIVE Urine Propoxyphene Screen NEGATIVE NEGATIVE Urine Barbiturates Screen NEGATIVE NEGATIVE Ur Tricyclic Antidepressants Screen NEGATIVE NEGATIVE Urine Phencyclidine Screen NEGATIVE NEGATIVE Urine Amphetamines Screen NEGATIVE NEGATIVE Urine Methamphetamines Screen NEGATIVE NEGATIVE Urine Benzodiazepines Screen POSITIVE H NEGATIVE Urine Cocaine Screen NEGATIVE NEGATIVE Urine Cannabinoids Screen NEGATIVE NEGATIVE Coronavirus 2019 (CHAR) Positive H Negative Prothrombin Time 13.5 12.2-14.7 SEC INR Comment 1.0 0.8-1.4 Activated Partial Thromboplast Time 30 24-35 SEC Lactic Acid Level 4.49 *H 0.50-2.00 MMOL/L Test 07/01/20 19:50 Range/Units Blood Gas Puncture Site RIGHT RADIAL Blood Gas Patient Temperature 35.7 Arterial Blood pH 7.31 *L 7.37-7.43 Arterial Blood Partial Pressure CO2 46 H 35-45 MMHG Arterial Blood Partial Pressure O2 88 79-93 MMHG Arterial Blood HCO3 23 23-27 MMOL/L Arterial Blood Total CO2 24.5 21.0-31.0 MMOL/L Arterial Blood Oxygen Saturation 98 94-100 % Arterial Blood Base Excess -2.5 -2.5-2.5 MMOL/L Manolo Test YES-POS Blood Gas Ventilator Setting YES Blood Gas Inspired Oxygen 50% My Orders Orders - RIKY HELMS APRN Covid 19 Inhouse Test (07/01/20 19:51) Ns Iv 1000 Ml (Sodium Chloride 0.9%) (07/01/20 20:15) Blood Culture (07/01/20 20:08) Ns Iv 1000 Ml (Sodium Chloride 0.9%) (07/01/20 20:45) Cefepime Injection (Maxipime Injection) (07/01/20 20:45) Dexamethasone Injection (Decadron Inje (07/01/20 21:00) Medications Given in ED Current Medications Medications Dose Ordered Sig/Sim Route Start Time Stop Time Status Last Admin Dose Admin Lactated Ringer's 1,000 ml @ 0 mls/hr Q0M ONCE IV 07/01/20 19:15 07/01/20 19:16 DC 07/01/20 19:47 0 MLS/HR Propofol 100 ml @ ud STK-MED ONCE IV 07/01/20 19:13 07/01/20 19:16 DC 07/01/20 19:59 10.8 MLS/HR Vital Signs/I&O 07/01/20 07/01/20 07/01/20 19:22 19:59 20:34 Pulse 133 111 133 Resp 18 18 B/P (MAP) 148/102 Pulse Ox 100 100 FiO2 50 50 Capillary Refill : Diagnostic Imaging Diagonstic Imaging: Xray Comments NAME: DELON [facility] REC#: [id number] PT STATUS: REG ER : 1970 PHYSICIAN: GILMA MENDEZ DO ADMIT DATE: 07/01/20/ER Draft Date of Exam:07/01/20 CT HEAD/CERVICAL SPINE WO PROCEDURE: CT head and CT cervical spine without contrast. TECHNIQUE: Multiple contiguous axial images were obtained through the brain and cervical spine without the use of intravenous contrast. Sagittal and coronal reformations through the cervical spine were then performed. Auto Exposure Controls were utilized during the CT exam to meet ALARA standards for radiation dose reduction. INDICATION: Trauma. Shortness of breath. Possible overdose. COMPARISON is made to CT of the head from February 20, 2019. FINDINGS: There are no CT findings of acute intracranial hemorrhage. There is no intracranial mass effect or shift. There is no hydrocephalus. There is no abnormal extra-axial collection. Jones-white matter differentiation appears maintained. There is no territorial infarct or evidence to suggest global anoxia. There is no abnormal low density within the basal ganglia or within the belen. There are no findings of a calvarial fracture. The mastoid air cells appear clear. The paranasal sinuses clear. Orbital contents unremarkable. Cervical spine demonstrates normal alignment of the craniocervical junction. There are normal relationships of the lateral masses of C1 and C2. The facets are normally aligned. There are no findings of facet joint or disc space widening. The vertebral body heights are maintained. There are mild degenerative endplate changes present anteriorly at the C6-C7 and C7-T1 levels. No acute cervical spine fracture is evident. There are no findings to suggest high-grade canal stenosis. The endotracheal tube is present within the trachea and an enteric tube within the esophagus. The lung apices appear clear. There are carotid calcifications. No acute soft tissue abnormality of the neck evident. IMPRESSION: 1. No CT evidence of an acute intracranial abnormality. 2. Mild degenerative features within the cervical spine without CT findings of acute cervical spine fracture or traumatic malalignment. There is no evidence to suggest significant central canal stenosis. Dictated on workstation # [id number] Dict: 07/01/202039 Trans: 07/01/202048 [facility] [id number] Interpreted by: IVON DAMIAN MD Electronically signed by: Departure Communication (Admissions) 2056-spoke with [facility], they do have an ICU bed available and will review her chart. We do not have any ICU bed available here. I did withdraw the ET tube by 2cm after reviewing the Chest x ray. Vent settings: Vt 450, RR 18, FiO2 60%, PEEP 5. NAME: DELON OSBORN [facility] REC#: [id number] PT STATUS: REG ER : 1970 PHYSICIAN: GILMA MENDEZ DO ADMIT DATE: 07/01/20/ER Draft Date of Exam:07/01/20 CHEST 1 VIEW, AP/PA ONLY INDICATION: Altered mental status. Time of exam: 7:23 PM Correlation is made with prior exam from 11/04/2019. ET tube has been placed and is somewhat low in position entering the right mainstem bronchus. This should be pulled back approximately 2-1/2 to 3 cm. NG tube goes into the stomach. There is central congestion with some linear atelectasis left base. There is no effusion or pneumothorax. IMPRESSION: ET tube has been placed and is somewhat low in position entering the right mainstem bronchus, as described. Results were called to the Emergency Department prior to this dictation. Dictated on workstation # [id number] Dict: 07/01/201920 Trans: 07/01/201936 [facility] [id number] Interpreted by: CARRIE WOLFE MD Electronically signed by: Impression Primary Impression: Benzodiazepine overdose Additional Impressions: COVID-19 Aspiration pneumonitis Disposition: 02 XFER SHT-TRM HOSP Condition: Stable Transfer Transfer Reason: Diversion Time Spoke to Accepting Phy: 20:57 Departure-Patient Inst. Referrals: DANIELLE JUARES DO (PCP/Family) Primary Care Physician RIKY HELMS MEAT SPECIALIST Jul 01, 2020 20:00
[2020-07-01 20:08] LABS: BACTERIA,URINE TRACE /HPF; BILIRUBIN,URINE 1+ (NEGATIVE)
[2020-07-01] MEDS ORDERED: NS IV 1000 ML 1,000 ML IV SCH ×2 (20:15→20:45)
[2020-07-01 20:16] LABS: ABG BASE EXCESS -2.5 MMOL/L (-2.5-2.5); ABG OXYGEN SATURATION 98 % (94-100); ABG PCO2 46 MMHG (35-45); ABG PO2 88 MMHG (79-93); ABG TCO2 24.5 MMOL/L (21.0-31.0)
[2020-07-01 20:18] LABS: AMPHETAMINE SCREEN, URINE NEGATIVE (NEGATIVE); BARBITURATE SCREEN URINE NEGATIVE (NEGATIVE); BENZODIAZEPINES SCREEN URINE POSITIVE (NEGATIVE); CANNABINOID SCREEN, URINE NEGATIVE (NEGATIVE); COCAINE SCREEN URINE NEGATIVE (NEGATIVE); METHADONE STAT NEGATIVE (NEGATIVE); METHAMPHETAMINE SCREEN URINE S NEGATIVE (NEGATIVE); OPIATE SCREEN URINE NEGATIVE (NEGATIVE); OXYCODONE STAT NEGATIVE (NEGATIVE); PROPOXYPHENE STAT NEGATIVE (NEGATIVE); TRICYCLIC ANTIDEPRESSANTS SCRE NEGATIVE (NEGATIVE)
[2020-07-01 20:20] LABS: ABG PH 7.31 (7.37-7.43); ALLENS TEST YES-POS; INSPIRED O2 50%; PATIENT TEMP 35.7; VENTILATOR YES
[2020-07-01 20:23] LABS: PROTHROMBIN TIME PATIENT 13.5 SEC (12.2-14.7)
[2020-07-01] MEDS ORDERED: CEFEPIME INJECTION 2,000 MG in WATER (STERILE) FOR INJECTION 20 ML IV ONE (20:45)
--- NOTE | 2020-07-01 20:51 | Diagnostic Imaging Report ---
PROCEDURE: CT head and CT cervical spine without contrast. TECHNIQUE: Multiple contiguous axial images were obtained through the brain and cervical spine without the use of intravenous contrast. Sagittal and coronal reformations through the cervical spine were then performed. Auto Exposure Controls were utilized during the CT exam to meet ALARA standards for radiation dose reduction. INDICATION: Trauma. Shortness of breath. Possible overdose. COMPARISON is made to CT of the head from February 20, 2019. FINDINGS: There are no CT findings of acute intracranial hemorrhage. There is no intracranial mass effect or shift. There is no hydrocephalus. There is no abnormal extra-axial collection. Jones-white matter differentiation appears maintained. There is no territorial infarct or evidence to suggest global anoxia. There is no abnormal low density within the basal ganglia or within the belen. There are no findings of a calvarial fracture. The mastoid air cells appear clear. The paranasal sinuses clear. Orbital contents unremarkable. Cervical spine demonstrates normal alignment of the craniocervical junction. There are normal relationships of the lateral masses of C1 and C2. The facets are normally aligned. There are no findings of facet joint or disc space widening. The vertebral body heights are maintained. There are mild degenerative endplate changes present anteriorly at the C6-C7 and C7-T1 levels. No acute cervical spine fracture is evident. There are no findings to suggest high-grade canal stenosis. The endotracheal tube is present within the trachea and an enteric tube within the esophagus. The lung apices appear clear. There are carotid calcifications. No acute soft tissue abnormality of the neck evident. IMPRESSION: 1. No CT evidence of an acute intracranial abnormality. 2. Mild degenerative features within the cervical spine without CT findings of acute cervical spine fracture or traumatic malalignment. There is no evidence to suggest significant central canal stenosis. Dictated by: Dictated on workstation # [id number]
[2020-07-01 20:53] LABS: FREE T4 (FREE THYROXINE) 0.99 NG/DL (0.70-1.48)
[2020-07-01] MEDS ORDERED: NOREPINEPHRINE 4 MG/250 ML 250 ML IV ONE (21:40)
--- NOTE | 2020-07-01 22:00 | NUR ---
2200 100mccg fentanyl. 5mg versed per provider verbal order at bedside. Medication pulled from RSI box used for intubation.
--- NOTE | 2020-07-01 22:25 | NUR ---
This RN contacted pt spouse, Bhavya, regarding pt update, findings, et transfer to [facility]. Bhavya verbalizes consent for this RN to give daughter, Italia, pt report. Bhavya voices no further questions or concerns.
--- NOTE | 2020-07-01 22:52 | NUR ---
Report given to JARET Mendez from [facility]. Upon arrival to pt to room [facility].
--- NOTE | 2020-07-01 23:25 | NUR ---
[employer] arrives to ER. Report given to LARISSA Jara et JARET Shah for flight transfer to [facility]. Personal belongings sent with flight crew including clothing, medication, et 5 rings that remain on pt hands.
[2020-07-01] MEDS ORDERED: PROPOFOL DRIP (ICU) 100 ML IV SCH (23:30)
[2020-07-01 23:55] VITALS: BP 108/85
--- NOTE | 2020-07-02 05:53 | Diagnostic Imaging Report ---
INDICATION: Line placement. Comparison with 7:23 PM exam. FINDINGS: ET tube and NG tube remain in good position. Right jugular line is now present tip is in the superior vena cava. Lungs again show patchy infiltrates more severe in the left lower lung with some discoid atelectasis left lung base. IMPRESSION: Satisfactory placement of right IJ line since previous exam. Dictated by: Dictated on workstation # [id number]
== END 2020-07-01 23:55 | disposition short-term general hospital (02) ==
LOC: EDUNIT# 18:59 → ER 19:00
DX: T42.4X1A Poisoning by benzodiazepines, accidental (unintentional), initial encounter (principal); U07.1 COVID-19; J69.0 Pneumonitis due to inhalation of food and vomit; F31.9 Bipolar disorder, unspecified; F41.9 Anxiety disorder, unspecified; Z80.9 Family history of malignant neoplasm, unspecified; Z77.22 Contact with and (suspected) exposure to environmental tobacco smoke (acute) (chronic); Z88.1 Allergy status to other antibiotic agents; Z88.5 Allergy status to narcotic agent; Z88.8 Allergy status to other drugs, medicaments and biological substances
CPT/HCPCS: 31500; 36415; 51702; 70450; 71045; 72125; 80053; 80306; 80320; 80329; 81000; 82550; 82553; 82805; 82962; 83605; 83690; 83735; 83874; 83880; 84439; 84443; 84484; 84703; 85007; 85027; 85610; 85730; 87040; 87077; 87635; 93005; 93041; 94002; 99291

== ENCOUNTER 2020-07-13 20:03 | Emergency (ER) | payer MEDICARE, MEDICAID ==
[~2020-07-13] VITALS: Ht 162.6 cm; Wt 86.4 kg
[2020-07-13] MEDS ORDERED: ASPIRIN 81 MG CHEW (CHILDREN'S ASA) PO ONE (20:15)
[2020-07-13] MEDS ORDERED: KETOROLAC 30 MG/ML VIAL ONE (20:22)
--- NOTE | 2020-07-13 20:23 | ED Chest Pain ---
General Stated Complaint: CHEST PAIN Source: patient Exam Limitations: no limitations History of Present Illness Date Seen by Provider: Jul 13, 2020 Time Seen by Provider: 20:15 Initial Comments Patient is a 50-year-old female who presents to the emergency department today with a chief complaint of substernal chest pain. Patient describes the pain as "an ache". She states this evening she had intermittent "sharp" pains that brought her to the emergency department. Patient tells me that she was recently in the hospital at "with a clot in my heart". She states she took too much of her sleeping medications and subsequently developed this. She was recently released from the hospital of last week which is 4 days ago. Patient was placed on Eliquis and states that she has been compliant with her medications. She denies any associated shortness of breath or nausea but has had some sweating with the pain. Nothing makes the pain any better or any worse. She has not taken any medications to try and alleviate her symptoms. Patient states that the pain started at 9:00 this morning. She denies any fevers, chills, cough, congestion. No GI or symptoms reported. She states the imaging done at included an echocardiogram which diagnosed the clot in her heart. She denies having had a heart catheterization. All other review of systems reviewed and negative except as stated above. 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, altered mental status Home Medications Aripiprazole 10 Mg Tablet, 10 MG PO DAILY, (Reported) Baclofen 20 Mg Tablet, 20 MG PO TID PRN for ANXIETY, (Reported) Buprenorphine HCl/Naloxone HCl 1 Each Tab.subl, 1 EACH SL TID, (Reported) Furosemide 40 Mg Tablet, 20 MG PO DAILY, (Reported) Mirtazapine 15 Mg Tablet, 15 MG PO HS, (Reported) Potassium Chloride 10 Meq Capsule.er, 10 MEQ PO DAILY, (Reported) Pregabalin 150 Mg Capsule, 150 MG PO BID, (Reported) Sertraline HCl 50 Mg Tablet, 100 MG PO DAILY, (Reported) Simvastatin 40 Mg Tablet, 40 MG PO DAILY, (Reported) Patient Home Medication List Home Medication List Reviewed: Yes Review of Systems Review of Systems Constitutional: see HPI EENTM: No Symptoms Reported Respiratory: No Symptoms Reported Cardiovascular: Chest Pain Gastrointestinal: No Symptoms Reported Genitourinary: No Symptoms Reported Musculoskeletal: no symptoms reported Skin: other (Diaphoresis when the pain is sharp) All Other Systems Reviewed Negative Unless Noted: Yes Past Nrhqsre-Ndzvlq-Lyjlbo Hx Patient Social History Drug of Choice: HX OF OPIATE ABUSE-ON 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 Type Used: Cigarettes 2nd Hand Smoke Exposure: Yes Recent Foreign Travel: No Contact w/Someone Who Travel: No Recent Hopitalizations: No Immunizations Up To Date Tetanus Booster (TDap): More than 5yrs Seasonal Allergies Seasonal Allergies: No Past Medical History Surgeries: Yes (HYST/BSO; LEFT ANKLE RECONSTRUCTION) Appendectomy, Gallbladder, Hysterectomy, Oophorectomy, Orthopedic Respiratory: No Cardiac: No Neurological: No 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 Disorders: No 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 ) Sleep Difficulties, Anxiety, PTSD, Bipolar, Depression Integumentary: No Blood Disorders: No Adverse Reaction/Blood Tranf: No Family Medical History Cancer No Pertinent Family Hx Physical Exam Vital Signs Vital Signs - First Documented Capillary Refill : Height, Weight, BMI Height: 5'4.00" Weight: 175lbs. 6.4oz. [id number]; 29.00 BMI Method:Stated General Appearance: No Apparent Distress, WD/WN Neck: Normal Inspection Respiratory: Lungs Clear, Normal Breath Sounds, No Accessory Muscle Use, No Respiratory Distress Cardiovascular: Regular Rate, Rhythm, No Gallop, No Murmur Gastrointestinal: Normal Bowel Sounds, Non Tender, Soft Extremity: Normal Capillary Refill, Normal Range of Motion, Non Tender, No Calf Tenderness, No Pedal Edema Neurologic/Psychiatric: Alert, Oriented x3, No Motor/Sensory Deficits, Normal Mood/Affect, mainspring reverse winder II-XII Norm as Tested Skin: Normal Color, Warm/Dry Procedures/Interventions Date of ETT Placement: Jul 01, 2020 Time of ETT Placement: 1909 Progress/Results/Core Measures Results/Orders Lab Results Laboratory Tests Test 07/13/20 20:18 Range/Units White Blood Count 10.0 4.3-11.0 10^3/uL Red Blood Count 4.69 3.80-5.11 10^6/uL Hemoglobin 14.3 11.5-16.0 g/dL Hematocrit 43 35-52 % Mean Corpuscular Volume 91 80-99 fL Mean Corpuscular Hemoglobin 31 25-34 pg Mean Corpuscular Hemoglobin Concent 33 32-36 g/dL Red Cell Distribution Width 13.0 10.0-14.5 % Platelet Count 191 130-400 10^3/uL Mean Platelet Volume 10.7 9.0-12.2 fL Immature Granulocyte % (Auto) 1 % Neutrophils (%) (Auto) 71 42-75 % Lymphocytes (%) (Auto) 18 12-44 % Monocytes (%) (Auto) 8 0-12 % Eosinophils (%) (Auto) 3 0-10 % Basophils (%) (Auto) 0 0-10 % Neutrophils # (Auto) 7.1 1.8-7.8 10^3/uL Lymphocytes # (Auto) 1.7 1.0-4.0 10^3/uL Monocytes # (Auto) 0.8 0.0-1.0 10^3/uL Eosinophils # (Auto) 0.3 0.0-0.3 10^3/uL Basophils # (Auto) 0.0 0.0-0.1 10^3/uL Immature Granulocyte # (Auto) 0.1 0.0-0.1 10^3/uL Prothrombin Time 14.4 12.2-14.7 SEC INR Comment 1.1 0.8-1.4 Activated Partial Thromboplast Time 33 24-35 SEC Sodium Level 138 135-145 MMOL/L Potassium Level 3.8 3.6-5.0 MMOL/L Chloride Level 105 98-107 MMOL/L Carbon Dioxide Level 22 21-32 MMOL/L Anion Gap 11 5-14 MMOL/L Blood Urea Nitrogen 10 7-18 MG/DL Creatinine 0.81 0.60-1.30 MG/DL Estimat Glomerular Filtration Rate > 60 BUN/Creatinine Ratio 12 Glucose Level 113 H 70-105 MG/DL Calcium Level 8.8 8.5-10.1 MG/DL Corrected Calcium 9.0 8.5-10.1 MG/DL Magnesium Level 1.7 1.6-2.4 MG/DL Total Bilirubin 0.5 0.1-1.0 MG/DL Aspartate Amino Transf (AST/SGOT) 37 H 5-34 U/L Alanine Aminotransferase (ALT/SGPT) 66 H 0-55 U/L Alkaline Phosphatase 84 40-136 U/L Myoglobin 21.5 10.0-92.0 NG/ML Troponin I < 0.028 <0.028 NG/ML Total Protein 6.6 6.4-8.2 GM/DL Albumin 3.8 3.2-4.5 GM/DL My Orders Orders - SANJUANITA HERRERA MD Ketorolac Injection (Toradol Injection) (07/13/20 20:30) Ketorolac Injection (Toradol Injection) (07/13/20 20:22) Medications Given in ED Current Medications Medications Dose Ordered Sig/Sim Route Start Time Stop Time Status Last Admin Dose Admin Aspirin 324 mg ONCE ONCE PO 07/13/20 20:15 07/13/20 20:16 DC 07/13/20 20:27 324 MG Ketorolac Tromethamine 15 mg ONCE ONCE IVP 07/13/20 20:30 07/13/20 20:31 DC 07/13/20 20:29 15 MG Vital Signs/I&O 07/13/20 07/13/20 20:05 20:05 Temp 36.8 Pulse 89 Resp 12 B/P (MAP) 144/75 (98) Pulse Ox 97 O2 Delivery Room Air Room Air Progress Progress Note : Time: 21:55 Progress Note 50-year-old female presents to the emergency room today with a chief complaint of some left-sided chest discomfort. Evaluation today includes a physical exam, EKG, chest x-ray, CBC, chemistry, cardiac enzyme profile. Patient is treated here in the emergency department with 15 mg of Toradol IV. On this reevaluation the patient states that she feels 100% better. She has no pain or discomfort. In light of her having pain for 12 hours today and negative cardiac enzymes I am comfortable with 1 set of negative cardiac enzymes. The patient states that she is supposed to be getting a call from cardiology tomorrow for further follow-up regarding the "blood clot" in her heart. I told the patient that I would be giving her some contact information for cardiology on-call here for tomorrow. She is comfortable with that plan of care. She verbalizes understanding of her discharge instructions. All questions are sought and answered and she is stable for discharge. Initial ECG Impression Date: Jul 13, 2020 Initial ECG Impression Time: 20:11 Initial ECG Rate: 72 Initial ECG Rhythm: Normal Sinus Initial ECG Impression: Normal Diagnostic Imaging Diagonstic Imaging: Xray Plain Films/CT/US/NM/MRI: chest Comments [facility] [place], [place] NAME: DELON ZELAYA [facility] REC#: [id number] PT STATUS: REG ER : 1970 PHYSICIAN: NEGAR INGRAM ADMIT DATE: 07/13/20/ER Draft Date of Exam:07/13/20 CHEST 1 VIEW, AP/PA ONLY INDICATION: Chest pain. COMPARISON: Prior examination from 07/01/2020. FINDINGS: The heart size, mediastinal configuration, and pulmonary vascularity are within normal limits. There is no pleural effusion, pneumothorax, or pneumonia. The osseous structures are unremarkable. IMPRESSION: No acute cardiopulmonary abnormality. Dictated on workstation # [id number] Dict: 07/13/202052 Trans: 07/13/202058 [facility] [id number] Interpreted by: LARA MILLS MD Electronically signed by: Departure Impression Primary Impression: Chest pain Qualified Codes: R07.89 - Other chest pain Disposition: 01 HOME, SELF-CARE Condition: Stable Departure-Patient Inst. Decision time for Depature: 21:56 Referrals: DANIELLE JUARES DO (PCP/Family) Primary Care Physician Terry PRUETT MD Patient Instructions: Chest Pain That Is Not Caused by the Heart (DC) Add. Discharge Instructions: Please follow-up with your primary care physician tomorrow. I have also given you contact information for cardiology on-call. Please call for a follow-up appointment. Return to the emergency room for any worsening chest pain, chest pain that is associated with nausea, shortness of breath or sweating or any other emergent concerning symptoms. You can take [id number] Tylenol or ibuprofen as needed for pain. SANJUANITA HERRERA MD Jul 13, 2020 20:23
[2020-07-13 20:29] LABS: BASOPHILS % (AUTO) 0 % (0-10); EOSINOPHILS # (AUTO) 0.3 10^3/uL (0.0-0.3); EOSINOPHILS % (AUTO) 3 % (0-10); HEMATOCRIT 43 % (35-52); HEMOGLOBIN 14.3 g/dL (11.5-16.0); LYMPHOCYTES # (AUTO) 1.7 10^3/uL (1.0-4.0); LYMPHOCYTES % (AUTO) 18 % (12-44); MEAN CORPUSCULAR HEMOGLOBIN 31 pg (25-34); MEAN CORPUSCULAR HGB CONC 33 g/dL (32-36); MEAN CORPUSCULAR VOLUME 91 fL (80-99); MEAN PLATELET VOLUME 10.7 fL (9.0-12.2); MONOCYTES # (AUTO) 0.8 10^3/uL (0.0-1.0); MONOCYTES % (AUTO) 8 % (0-12); NEUTROPHILS # (AUTO) 7.1 10^3/uL (1.8-7.8); NEUTROPHILS % (AUTO) 71 % (42-75); PLATELET COUNT 191 10^3/uL (130-400)
[2020-07-13] MEDS ORDERED: KETOROLAC 15 MG/ML VIAL IVP ONE (20:30)
[2020-07-13 20:44] LABS: ALBUMIN 3.8 GM/DL (3.2-4.5); CHLORIDE 105 MMOL/L (98-107); POTASSIUM 3.8 MMOL/L (3.6-5.0); SODIUM 138 MMOL/L (135-145)
[2020-07-13 20:45] LABS: CALCIUM 8.8 MG/DL (8.5-10.1)
[2020-07-13 20:46] LABS: GLUCOSE 113 MG/DL (70-105)
[2020-07-13 20:47] LABS: TOTAL PROTEIN 6.6 GM/DL (6.4-8.2)
[2020-07-13 20:48] LABS: BILIRUBIN,TOTAL 0.5 MG/DL (0.1-1.0); CARBON DIOXIDE 22 MMOL/L (21-32)
[2020-07-13 20:50] LABS: ALKALINE PHOSPHATASE 84 U/L (40-136); CREATININE SERUM 0.81 MG/DL (0.60-1.30); GFR ESTIMATED > 60
[2020-07-13 20:51] LABS: BUN/CREATININE RATIO 12
[2020-07-13 20:53] LABS: ALANINE AMINOTRANSFERASE 66 U/L (0-55); MAGNESIUM 1.7 MG/DL (1.6-2.4)
--- NOTE | 2020-07-13 21:00 | Diagnostic Imaging Report ---
INDICATION: Chest pain. COMPARISON: Prior examination from 07/01/2020. FINDINGS: The heart size, mediastinal configuration, and pulmonary vascularity are within normal limits. There is no pleural effusion, pneumothorax, or pneumonia. The osseous structures are unremarkable. IMPRESSION: No acute cardiopulmonary abnormality. Dictated by: Dictated on workstation # [id number]
[2020-07-13 21:14] LABS: INR 1.1 (0.8-1.4); PROTHROMBIN TIME PATIENT 14.4 SEC (12.2-14.7)
--- NOTE | 2020-07-13 21:50 | NUR ---
WENT TO TAKE OUT PATIENT'S IV AND PT HAD ALREADY TAKEN IT OUT. PT STATED SHE WASHED HER HANDS AND GOT WATER ON THE TAPE, SO SHE DECIDED TO TAKE IT OUT.
[2020-07-13 22:04] VITALS: BP 115/71
== END 2020-07-13 22:04 | disposition home or self-care (01) ==
LOC: EDUNIT# 20:03 → ER 20:05
DX: R07.9 Chest pain, unspecified (principal); F31.9 Bipolar disorder, unspecified; F41.9 Anxiety disorder, unspecified; Z80.9 Family history of malignant neoplasm, unspecified; Z77.22 Contact with and (suspected) exposure to environmental tobacco smoke (acute) (chronic); Z88.1 Allergy status to other antibiotic agents; Z88.5 Allergy status to narcotic agent; Z88.8 Allergy status to other drugs, medicaments and biological substances
CPT/HCPCS: 36415; 71045; 80053; 83735; 83874; 84484; 85025; 85610; 85730; 93005; 93041

== ENCOUNTER → 2020-07-29 | Outpatient (CLI) | payer MEDICARE, MEDICAID ==
[~2020-07-29] VITALS: Ht 162 cm; Wt 84.0 kg
[~2020-07-29] MED LIST changes: +CATHETER FLUSH 10 ML SYR IV PRN; +REGADENOSON 0.4 MG/5 ML SYR (LEXISCAN) IV ONE
[2020-07-29 09:01] VITALS: BP 117/72
--- NOTE | 2020-07-30 14:55 | STRESS TEST ---
DATE OF SERVICE: 07/29/2020 RESTING AND POST REGADENOSON TECHNETIUM-99M TETROFOSMIN SPECT CT IMAGING ORDERING PHYSICIAN: Dr. Brown. PRIMARY PHYSICIAN: Dr. Pandya. CLINICAL DIAGNOSIS: Chest pain. Baseline images were carried out after injection of 9.87 mCi of technetium-99m Tetrofosmin. This was followed by 0.4 mg Regadenoson and 31.5 mCi of technetium-99m Tetrofosmin for stress imaging. The patient reported mild shortness of breath following Regadenoson infusion, which resolved in a few minutes. The electrocardiogram showed sinus rhythm at baseline and did not change significantly with the Regadenoson infusion. Review of images at rest and following stress does not indicate any distinct perfusion defect consistent with significant myocardial ischemia or infarction. Gated images show a normal global left ventricular systolic function with normal regional wall motion. Left ventricular ejection fraction is calculated to be 65%. Left ventricular end diastolic volume is 55 mL. TID is absent (1.07). CONCLUSIONS: 1. No evidence of any significant myocardial ischemia or infarction on this study. 2. Normal regional wall motion. 3. Normal global left ventricular systolic function with a calculated ejection fraction of 65%. Job ID: [id number] DocumentID: [id number] Dictated Date: 07/30/2020 14:40:07 Boat Detailer Date: 07/30/2020 14:54:56 Dictated By: JACKIE BROWN MD, MA, FACP, FACC,
== END ==
LOC: CARD 08:00
PROVIDERS: ATTEND Internal Medicine Cardiovascular Disease
DX: R07.89 Other chest pain (principal)
CPT/HCPCS: 78452; 93017

== ENCOUNTER → 2020-07-30 | Outpatient (CLI) | payer MEDICARE, MEDICAID ==
[~2020-07-30] MED LIST changes: -CATHETER FLUSH 10 ML SYR IV PRN; -REGADENOSON 0.4 MG/5 ML SYR (LEXISCAN) IV ONE
== END ==
LOC: CARD 13:27
PROVIDERS: ATTEND Internal Medicine Cardiovascular Disease
DX: Z01.810 Encounter for preprocedural cardiovascular examination (principal); R00.2 Palpitations; R07.89 Other chest pain
CPT/HCPCS: 93225; 93226; 93306